=== PATIENT | female | born 1990 | race Hispanic/Latino ===

== ENCOUNTER 2017-09-14 22:10 | Emergency (ER) | payer OTHER ==
[2017-09-14 23:10] LABS: Urine Blood NEGATIVE (NEG); Urine Glucose NEGATIVE (NEG); Urine Specific Gravity >1.030 (1.005-1.030); Urine pH 5.5 (5.0-7.0)
[2017-09-14] MEDS ORDERED: DIPHENOX/ATROP SULF 1 TAB PO ONE (23:10)
[2017-09-14] MEDS ORDERED: NA CHLORIDE 0.9% 1,000 ML ONE (23:10)
[2017-09-14] MEDS ORDERED: ONDANSETRON 4 MG/2 ML VIAL ONE (23:10)
[2017-09-14 23:11] LABS: Urine Protein 1+ (NEG)
--- NOTE | 2017-09-14 23:39 | EDPHYS ---
Physician Documentation [facility] Name: Allison Marvin Age: 27 yrs Sex: Female : 1990 Arrival Date: 09/14/2017 Time: 22:15 Bed 28 Private MD: ED Physician Suleman Wolf HPI: 09/14 23:08 This 27 yrs old Female presents to ER via Ambulatory with complaints of rn Vomiting/Diarrhea. 23:08 The patient presents to the emergency department with nausea, vomiting, diarrhea. rn Onset: The symptoms/episode began/occurred 3 day(s) ago. Possible causes: unknown. The symptoms are aggravated by nothing. The symptoms are alleviated by nothing. Severity of symptoms: At their worst the symptoms were moderate in the emergency department the symptoms are unchanged. The patient has experienced a previous episode. The patient has not recently seen a physician. Pt reports 3 days of nausea/vomiting/diarrhea, with identical symptoms, no blood in stool, + mild abd cramping, has 2 month old at home also with mild diarrhea. . 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 - Home Meds: 23:01 None [Active]; [facility] - PMHx: 23:01 GERD; [facility] - PSHx: 23:01 None; [facility] - Immunization history:: Flu vaccine is up to date. - Social history:: Smoking status: Patient/guardian denies using tobacco. - Family history:: not pertinent. - Hospitalizations: : No recent hospitalization is reported. ROS: 23:08 Constitutional: Negative for fever, chills, and weight loss, Eyes: Negative for injury, rn pain, redness, and discharge, Cardiovascular: Negative for chest pain, palpitations, and edema, Respiratory: Negative for shortness of breath, cough, wheezing, and pleuritic chest pain, Abdomen/GI: Negative for abdominal pain, and constipation, Back: Negative for injury and pain, MS/Extremity: Negative for injury and deformity, Skin: Negative for injury, rash, and discoloration, Neuro: Negative for headache, weakness, numbness, tingling, and seizure. Exam: 23:08 Constitutional: This is a well developed, well nourished patient who is awake, alert, rn and in no acute distress. Head/Face: Normocephalic, atraumatic. Eyes: Pupils equal round and reactive to light, extra-ocular motions intact. Lids and lashes normal. Conjunctiva and sclera are non-icteric and not injected. Cornea within normal limits. Periorbital areas with no swelling, redness, or edema. Cardiovascular: Regular rate and rhythm with a normal S1 and S2. No gallops, murmurs, or rubs. Normal PMI, no JVD. No pulse deficits. Respiratory: Lungs have equal breath sounds bilaterally, clear to auscultation and percussion. No rales, rhonchi or wheezes noted. No increased work of breathing, no retractions or nasal flaring. Abdomen/GI: Soft, non-tender, with normal bowel sounds. No distension or tympany. No guarding or rebound. No evidence of tenderness throughout. MS/ Extremity: Pulses equal, no cyanosis. Neurovascular intact. Full, normal range of motion. Equal circumference. Neuro: Awake and alert, GCS 15, oriented to person, place, time, and situation. Cranial nerves II-XII grossly intact. Motor strength 5/5 in all extremities. Sensory grossly intact. Cerebellar exam normal. Normal gait. Vital Signs: 22:15 BP 97 / 63; Pulse 57; Resp 18; Temp 97.9(O); Pulse Ox 100% on R/A; Weight 63.5 kg; kb1 Height 5 ft. 4 in. (162.56 cm); Pain 9/10; 22:15 Body Mass Index 24.03 (63.50 kg, 162.56 cm) kb1 MDM: 22:19 Patient medically screened. rn 23:36 Differential diagnosis: Nonspecific abd pain, viral gastroenteritis, gastroenteritis, rn . Data reviewed: vital signs, nurses notes, lab test result(s), and as a result, I will discharge patient. Counseling: I had a detailed discussion with the patient and/or guardian regarding: the historical points, exam findings, and any diagnostic results supporting the discharge/admit diagnosis, lab results, the need for outpatient follow up, to return to the emergency department if symptoms worsen or persist or if there are any questions or concerns that arise at home. Special discussion: I discussed with the patient/guardian in detail that at this point there is no indication for admission to the hospital. It is understood, however, that if the symptoms persist or worsen the patient needs to return immediately for re-evaluation. Based on the history and exam findings, there is no indication for further emergent testing or inpatient evaluation. I discussed with the patient/guardian the need to see the OB Gyne specialist for further evaluation of the symptoms. ED course: Pt with atleast 2 months out of last , + UPT, + serum preg, with similar symptoms, maybe just viral gastroenteritis in addition to her being , urged her to f/u with her CLUB DIRECTOR.. 09/15 00:08 ED course: Pt very upset at time of discharge, yelling at both nurse and physician, has rn not thrown up entire time she has been here, when asked her goal she couldn't give me an answer, went on to yell and call me "dumb motherfucker", asked her politely to f/u with her OB and if vomiting persists her OB can write for nausea medication. No ketones in urine, normal vitals, no signs of severe dehydration requiring admission/observation/further medication. Pt not happy with her care and I am not entirely sure why, she stormed out. . 09/14 22:44 Order name: Quantitative Hcg; Complete Time: 23:36 rn 09/14 22:50 Order name: Urine Dipstick--Ancillary (enter results); Complete Time: 23:13 2 09/14 22:50 Order name: Urine --Ancillary (enter results); Complete Time: 23:13 [facility] 09/14 22:25 Order name: IV Start; Complete Time: 22:58 rn 09/14 22:25 Order name: Urine Dipstick-Ancillary (obtain specimen); Complete Time: 22:58 rn 09/14 22:25 Order name: Urine Test (obtain specimen); Complete Time: 22:58 rn Administered Medications: 09/14 22:44 CANCELLED (canceled): LoMOTIL 2 tabs PO once rn 22:59 Drug: Zofran 4 mg Route: IVP; Site: left antecubital; [facility] 09/15 00:08 Follow up: Response: Nausea is decreased [facility] 09/14 22:59 Drug: NS 0.9% 1000 ml Route: IV; Rate: 1000 ml; Site: left antecubital; kb1 09/15 00:08 Follow up: IV Status: Completed infusion kb1 Disposition: 09/14/17 23:38 Discharged to Home. Impression: Encounter for test, result positive, Vomiting, Diarrhea, unspecified. - Condition is Stable. - Discharge Instructions: Diarrhea, Medicines During , Nausea and Vomiting, First Trimester of . - Medication Reconciliation Form, Thank You Letter, Antibiotic Education, Prescription Opioid Use form. - Follow up: Private Physician; When: As needed; Reason: Recheck today's complaints, Re-evaluation by your physician. - Problem is new. - Symptoms have improved. Signatures: Dispatcher [employer] EDMS Suleman Wolf MD MD rn Brown, Kristina, RN RN kb1 Corrections: (The following items were deleted from the chart) 09/14 22:44 22:25 LoMOTIL 2 tabs PO once ordered. rn rn
--- NOTE | 2017-09-14 23:39 | ER ---
Nurse's Notes [facility] Name: Allison Marvin Age: 27 yrs Sex: Female : 1990 Arrival Date: 09/14/2017 Time: 22:15 Bed 28 Private MD: Diagnosis: Encounter for test, result positive;Vomiting;Diarrhea, unspecified Presentation: 09/14 22:15 Presenting complaint: Patient states: Complains of diarrhea and vomiting for the past kb1 three days. Transition of care: patient was not received from another setting of care. Onset of symptoms was September 11, 2017. Care prior to arrival: None. 22:15 Acuity: DWAINE 3 kb1 22:15 Method Of Arrival: Ambulatory [facility] Triage Assessment: 23:01 General: Appears in no apparent distress. Behavior is calm, cooperative. kb1 23:02 Pain: Complains of pain in epigastric area. Neuro: Level of Consciousness is awake, kb1 alert, obeys commands, Oriented to person, place, time, situation. Cardiovascular: Patient's skin is warm and dry. Respiratory: Airway is patent. GI: Abdomen is round Reports nausea, vomiting. : No signs and/or symptoms were reported regarding the genitourinary system. 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 - Social history:: Smoking status: Patient/guardian denies using tobacco. - Family history:: not pertinent. - Hospitalizations: : No recent hospitalization is reported. Screenin:10 Abuse screen: Denies threats or abuse. Nutritional screening: No deficits noted. [facility] Tuberculosis screening: No symptoms or risk factors identified. Fall Risk IV access (20 points). Assessment: 23:10 Reassessment: No changes from previously documented assessment. [facility] 09/15 00:00 Reassessment: Patient appears in no apparent distress at this time. Patient and/or kb1 family updated on plan of care and expected duration. Pain level reassessed. Patient is alert, oriented x 3, equal unlabored respirations, skin warm/dry/pink. Vital Signs: 09/14 22:15 BP 97 / 63; Pulse 57; Resp 18; Temp 97.9(O); Pulse Ox 100% on R/A; Weight 63.5 kg; kb1 Height 5 ft. 4 in. (162.56 cm); Pain 9/10; 22:15 Body Mass Index 24.03 (63.50 kg, 162.56 cm) kb1 ED Course: 22:15 Patient arrived in ED. am2 22:15 Arm band placed on. kb1 22:19 Suleman Wolf MD is Attending Physician. rn 22:32 Shweta Waddell RN is Primary Nurse. kb1 22:40 No provider procedures requiring assistance completed. Inserted saline lock: 22 gauge kb1 in left antecubital area, using aseptic technique. Blood collected. 23:00 Triage completed. kb1 23:10 Patient has correct armband on for positive identification. Placed in gown. Bed in low kb1 position. Call light in reach. Side rails up X 1. Pulse ox on. NIBP on. 09/15 00:08 IV discontinued, intact, bleeding controlled, No redness/swelling at site. Pressure kb1 dressing applied. Administered Medications: 09/14 22:44 CANCELLED (canceled): LoMOTIL 2 tabs PO once rn 22:59 Drug: Zofran 4 mg Route: IVP; Site: left antecubital; kb1 09/15 00:08 Follow up: Response: Nausea is decreased kb 09/14 22:59 Drug: NS 0.9% 1000 ml Route: IV; Rate: 1000 ml; Site: left antecubital; kb1 09/15 00:08 Follow up: IV Status: Completed infusion kb1 Outcome: 09/14 23:38 Discharge ordered by . rn 09/15 00:04 Discharged to home ambulatory. kb1 Condition: improved Discharge instructions given to patient, Instructed on discharge instructions, follow up and referral plans. Demonstrated understanding of instructions, follow-up care, Pt upset that she is not going home with prescriptions for nausea. Request to speak to Dr. Wolf. Dr. Wolf at bedside to speak with Pt, Pt became upset and began to cuss at and stormed out of room. 00:13 Patient left the ED. kb1 Signatures: Suleman Wolf MD MD rn Moreno, Amanda am2 Brown, Kristina, RN RN kb1 Corrections: (The following items were deleted from the chart) 09/14 23:04 23:01 General: Appears kb1 kb1 19:10 Presenting complaint: Patient states: Complains of diarrhea and vomiting for the kb1 past three days. kb1 19:10 Transition of care: patient was not received from another setting of care. [facility]1 19:10 Onset of symptoms was September 11, 2017 [facility] kb1 19:10 Care prior to arrival: None. [facility] kb1 19:10 Presenting complaint: Patient states: Complains of diarrhea and vomiting for the kb1 past three days. kb1 19:10 Method Of Arrival: Ambulatory [facility] kb1 19:10 Acuity: DWAINE 3 kb kb
[2017-09-15 00:41] VITALS: BP 97/63; TEMP 97.9; O2SAT 100
== END 2017-09-15 00:13 | disposition home or self-care (01) ==
LOC: ER 22:10
DX: R19.7 Diarrhea, unspecified (principal); Z32.01 Encounter for pregnancy test, result positive
CPT/HCPCS: 36415; 81003; 81025; 84702; 96361; 96374; 99284; J2405; J7030

== ENCOUNTER 2018-01-23 14:45 | Emergency (ER) | payer OTHER ==
--- OUTSIDE RECORDS SUMMARY | 2018-01-23 14:50 | XMS REPORT | Clinical Summary ---
:1990 Author Organization [facility] Address [address] [place] [address] Phone Care Team Providers Name Role Phone Unavailable Primary Care Provider Unavailable Allergies No Known Allergies Current Medications Prescription Sig. Disp. Refills Start Date End Date Status folic acid (FOLVITE) Take 1 mg by Active 1 MG tablet mouth daily. ondansetron Take 8 mg by Active (ZOFRAN-ODT) 4 MG mouth every 8 disintegrating (eight) hours tablet as needed for Nausea . metoclopramide Take 10 mg by Active (REGLAN) 5 MG tablet mouth every 6 (six) hours as needed . gabapentin Take 1 90 capsule 1 11/12/2017 Active (NEURONTIN) 300 MG capsule (300 9 capsule mg total) by mouth 3 (three) times daily. acetaminophen Take 2 30 tablet 0 11/12/2017 (TYLENOL) 500 MG tablets 8 tablet (1,000 mg total) by mouth every 8 (eight) hours for 10 days. ibuprofen Take 1 tablet 60 tablet 1 11/12/2017 (ADVIL,MOTRIN) 200 (200 mg 8 MG tablet total) by mouth every 6 (six) hours as needed for up to 10 days. traMADol (ULTRAM) 50 Take 2 30 tablet 0 11/12/2017 Discontinued mg tablet tablets (100 8 mg total) by mouth every 8 (eight) hours as needed for Pain for up to 10 days. Max Daily Amount: 300 mg acetaminophen-codein Take 1 tablet 30 tablet 0 11/12/2017 Discontinued e (TYLENOL #4) by mouth 8 300-60 mg per tablet every 4 (four) hours as needed for Pain for up to 10 days. Max Daily Amount: 6 tablets traMADol (ULTRAM) 50 Take 2 30 tablet 0 11/12/2017 mg tablet tablets (100 8 mg total) by mouth every 8 (eight) hours as needed for Pain for up to 10 days. Max Daily Amount: 300 mg acetaminophen-codein Take 1-2 60 tablet 0 11/12/2017 e (TYLENOL #4) tablets by 8 300-60 mg per tablet mouth every 4 (four) hours as needed for Pain for up to 10 days. Max Daily Amount: 12 tablets ondansetron (ZOFRAN) Take 1 tablet 15 tablet 0 12/09/2017 4 MG tablet (4 mg total) 8 by mouth every 6 (six) hours as needed for Nausea for up to 7 days. traMADol (ULTRAM) 50 Take 1 tablet 15 tablet 0 12/09/2017 mg tablet (50 mg total) 8 by mouth every 6 (six) hours as needed for Pain for up to 10 days. Max Daily Amount: 200 mg Active Problems Problem Noted Date Cholecystitis 11/07/2017 Encounters Date Type Specialty Care Team Description 12/09/2017 Emergency Emergency Medicine Richie Youssef, Hx laparoscopic MD cholecystectomy (Primary Dx);Flank pain;Non-intractable vomiting with nausea, unspecified vomiting type;Generalized abdominal pain 11/11/2017 Anesthesia Event Ceci Carreno MD 11/11/2017 Procedure Pass 11/11/2017 Surgery Adolph, LAPAROSCOPY,CHOLECYST MD Tawanda ECTOMY 11/10/2017 Procedure Pass Gastroenterology 11/10/2017 Surgery Gastroenterology Greta Vera ERCP,BALLOON SWEEPING MD Buddy 11/09/2017 Anesthesia Event Gastroenterology Nahid Thakur MD 11/08/2017 Orders Only General Internal Medicine 11/07/2017 [facility] General Internal Adolph, Cholecystitis - Encounter Medicine MD Tawanda (Primary Dx) 11/12/2017 after 01/22/2017 Social History Tobacco Use Types Packs/Day Years Used Date Never Smoker Smokeless Tobacco: Never Used Alcohol Use Drinks/Week oz/Week Comments No Sex Assigned at Date Recorded Not on file Last Filed Vital Signs Vital Sign Reading Time Taken Blood Pressure 107/58 12/09/2017 3:31 PM CDT Pulse 66 12/09/2017 3:31 PM CDT Temperature 36.9 C (98.4 F) 12/09/2017 3:31 PM CDT Respiratory Rate 18 12/09/2017 3:31 PM CDT Oxygen Saturation 100% 12/09/2017 3:31 PM CDT Inhaled Oxygen Concentration - - Weight 59 kg (130 lb) 12/09/2017 3:31 PM CDT Height 162.6 cm (5' 4") 12/09/2017 3:31 PM CDT Body Mass Index 22.31 12/09/2017 3:31 PM CDT Plan of Treatment Not on file Implants Implanted Type Area Harness Brusher Device Expiration Date Model / Identifier Serial / Lot Stent Bili Duodenal [id number] - [id number] Stents-Pe [employer] 2018 [id number] / Implanted: Qty: 1 on 11/10/2017 by Greta Vera MD [facility] / [id number] Procedures Procedure Name Priority Date/Time Associated Diagnosis Comments LAPAROSCOPY,CHOLECYSTEC 11/11/2017 3:05 PM CDT Acute cholecystitis ANDREA PROCEDURE W/ C-ARM 11/10/2017 7:15 AM CDT Choledocholithiasis Special Needs C-arm ERCP,BALLOON SWEEPING 11/10/2017 7:15 AM CDT Choledocholithiasis Special Needs C-arm after 01/22/[address] abdomen pelvis with IV contrast (12/09/2017 6:17 PM) Specimen Performing Laboratory [employer] Narrative FINAL REPORT History: Generalized abdominal pain. TECHNIQUE: Helical CT of the abdomen and pelvis were performed following the uneventful administration of intravenous contrast utilizing multiple windows, sagittal and coronal reformations. FINDINGS: No comparisons. Abdominal CT: The solid abdominal organs including the liver, spleen, kidneys, pancreas and adrenal glands are unremarkable. What appears to be a plastic biliary stent is present in the common bile duct extending superiorly into the hepatic hilum. A small amount of pneumobilia is present. Gallbladder is absent, consistent with prior cholecystectomy and there are multiple surgical clips in the gallbladder fossa. Stomach, visible portions of the small bowel and colon are normal. There is no evidence for obstruction. No free air or evidence for perforation. No abdominal fluid collections or pathologic adenopathy. Vessels and bones are unremarkable. Images obtained through the lower chest and lung bases are unremarkable. Pelvic CT: Pelvic organs including the rectum, uterus, urinary bladder and visible portions of the bowel are unremarkable. There are no pelvic fluid collections or pathologic adenopathy. Vessels and bones are unremarkable. Several pelvic phleboliths are noted. IMPRESSION: 1. Common bile duct endoscopic stent and mild pneumobilia. Gallbladder is absent consistent with cholecystectomy. 2. Otherwise, unremarkable CT of the abdomen and pelvis. Signed: Cassie Staples MD Report Verified Date/Time:12/09/2017 18:39:14 Reading Location: [facility] Diagnostic Imaging Reading Room - [place] [address] Procedure Note Interface, External Ris In - 12/09/2017 6:41 PM CDT FINAL REPORT History: Generalized abdominal pain. TECHNIQUE: Helical CT of the abdomen and pelvis were performed following the uneventful administration of intravenous contrast utilizing multiple windows, sagittal and coronal reformations. FINDINGS: No comparisons. Abdominal CT: The solid abdominal organs including the liver, spleen, kidneys, pancreas and adrenal glands are unremarkable. What appears to be a plastic biliary stent is present in the common bile duct extending superiorly into the hepatic hilum. A small amount of pneumobilia is present. Gallbladder is absent, consistent with prior cholecystectomy and there are multiple surgical clips in the gallbladder fossa. Stomach, visible portions of the small bowel and colon are normal. There is no evidence for obstruction. No free air or evidence for perforation. No abdominal fluid collections or pathologic adenopathy. Vessels and bones are unremarkable. Images obtained through the lower chest and lung bases are unremarkable. Pelvic CT: Pelvic organs including the rectum, uterus, urinary bladder and visible portions of the bowel are unremarkable. There are no pelvic fluid collections or pathologic adenopathy. Vessels and bones are unremarkable. Several pelvic phleboliths are noted. IMPRESSION: 1. Common bile duct endoscopic stent and mild pneumobilia. Gallbladder is absent consistent with cholecystectomy. 2. Otherwise, unremarkable CT of the abdomen and pelvis. Signed: Cassie Staples MD Report Verified Date/Time: 12/09/2017 18:39:14 Reading Location: [facility] Diagnostic Imaging Reading Room - [place] [address] /aPTT (12/09/2017 4:15 PM) Component Value Ref Range Protime 15.6 (H) 11.7 - 14.7 seconds INR 1.2 <=5.9 PTT 29.2 22.5 - 36.0 seconds Specimen Performing Laboratory Blood - Arm, Right [address] [address] Narrative RECOMMENDED COUMADIN/WARFARIN INR THERAPY RANGES STANDARD DOSE: 2.0 - 3.0 Includes: PROPHYLAXIS for venous thrombosis, systemic embolization; TREATMENT for venous thrombosis and/or pulmonary embolus. HIGH RISK: Target INR is 2.5-3.5 for patients with mechanical heart valves. CBC with platelet count + automated diff (12/09/2017 4:15 PM)Only the most recent of2 resultswithin the time period is included. Component Value Ref Range WBC 7.5 3.5 - 10.5 K/L RBC 3.97 3.93 - 5.22 M/L Hemoglobin 9.6 (L) 11.2 - 15.7 GM/DL Hematocrit 30.9 (L) 34.1 - 44.9 % MCV 77.8 (L) 79.4 - 94.8 fL MCH 24.2 (L) 25.6 - 32.2 pg MCHC 31.1 (L) 32.2 - 35.5 GM/DL RDW 19.2 (H) 11.7 - 14.4 % Platelets 201 150 - 450 K/CU MM MPV 10.5 9.4 - 12.3 fL nRBC 0 0 - 0 /100 WBC % Neutros 64 % % Lymphs 27 % % Monos 6 % % Eos 2 % % Baso 1 % # Neutros 4.81 1.56 - 6.13 K/L # Lymphs 2.04 1.18 - 3.74 K/L # Monos 0.43 (H) 0.24 - 0.36 K/L # Eos 0.14 0.04 - 0.36 K/L # Baso 0.06 0.01 - 0.08 K/L Immature Granulocytes-Relative 0 0 - 1 % Specimen Performing Laboratory Blood - Arm, Right [address] [address] Screen, urine (12/09/2017 4:15 PM)Only the most recent of2 resultswithin the time period is included. Component Value Ref Range Preg Test, Ur Negative Specimen Performing Laboratory Urine [address] [address] Urinalysis w/Microscopic (12/09/2017 4:15 PM) Component Value Ref Range Color, UA Yellow Clarity, UA Hazy Specific [place], UA 1.031 1.001 - 1.035 pH, UA 6.0 5.0 - 8.0 Protein, UA 30 mg/dL (A) Negative Glucose, UA Negative Negative Ketones, UA Negative Negative Bilirubin, UA Negative Negative Blood, UA Small (A) Negative Nitrite, UA Negative Negative Leukocytes, UA Moderate (A) Negative Urobilinogen, UA 2.0 (H) 0.2 - 1.0 mg/dL RBC, UA 0 /HPF WBC, UA 5 /HPF Mucus Many Squam Epithel, UA 6 /HPF Hyaline Casts, UA 6 /LPF Specimen Source Specimen Performing Laboratory Urine [address] [address] CBC with platelet count + automated diff (12/09/2017 4:15 PM)Only the most recent of2 resultswithin the time period is included. Specimen Performing Laboratory Blood Narrative The following orders were created for panel order CBC with platelet count + automated diff. Procedure Abnormality Status --------- ------ CBC with platelet count ...[[id number]]AbnormalFinal result Please view results for these tests on the individual orders. Lipase (12/09/2017 4:15 PM)Only the most recent of2 resultswithin the time period is included. Component Value Ref Range Lipase 9 8 - 78 U/L Specimen Performing Laboratory Blood - Arm, Right [address] [address] Comprehensive metabolic panel (12/09/2017 4:15 PM) Component Value Ref Range Protein, Total 7.2 6.0 - 8.3 gm/dL Albumin 4.1 3.5 - 5.0 g/dL Alkaline Phosphatase 77 40 - 150 U/L Total Bilirubin 0.5 0.2 - 1.2 mg/dL Sodium 139 136 - 145 meq/L Potassium 3.0 (L) 3.5 - 5.1 meq/L Chloride 107 98 - 107 meq/L CO2 26 22 - 29 meq/L BUN 15 7 - 21 mg/dL Creatinine 0.67 0.57 - 1.25 mg/dL Glucose 86 70 - 105 mg/dL Calcium 9.1 8.4 - 10.2 mg/dL AST 11 5 - 34 U/L ALT 7 6 - 55 U/L EGFR Comment: INSUFFICIENT CLINICAL DATA TO mL/min/1.73 sq m CALCULATE ESTIMATED GFR. Specimen Performing Laboratory Blood - Arm, Right [address] [address] RHYTHM STRIP - SCAN (11/15/2017 7:20 AM)Tissue Exam (11/11/2017 6:06 PM) Component Value Ref Range Case Report Surgical Pathology Report Case: [id number] Authorizing Provider:Tawanda Farfan MDCollected: 11/11/2017 1806 Ordering Location: [facility] PERI[facility] Received: 11/14/2017 0743 SERVICES Pathologist: Mabel Mejia MD Specimen:Gallbladder, Gallbladder and Lymph Node DIAGNOSIS GALLBLADDER,LAPAROSCOPIC CHOLECYSTECTOMY: - ACUTE SEROSITIS AND PERICHOLECYSTITIS - PREDOMINANTLT CHRONIC CHOLECYSTITIS IN SECTIONS EXAMINED - CHOLELITHIASIS - CYSTIC DUCT MARGIN, UNREMARKABLE - BENIGN CYSTIC LYMPH NODE - NO DYSPLASIA OR MALIGNANCY SEEN Signing Pathologist Direct Phone Line: [phone] CPT Code(s) 87786 CLINICAL HISTORY Acute cholecystitis SPECIMEN SOURCE Gallbladder and lymph node GROSS DESCRIPTION The specimen is received in formalin-filled container labeled with the patient's information and labeled "gallbladder". It consists of an intact gallbladder measuring 7.6 x 2.5 cm with a gallbladder wal l thickness up to 0.2 cm. There is a separate omer-quinn lymph node measuring 1 x 0.7 x 0.4 cm. The gallbladder lumen is filled with multiple omer smooth stones and green thick fluid. The mucosa is green a nd smooth with multiple areas of effacement. No masses are identified. The stones measure up to 0.6 cm. Section code: A1, margin en face with lymph node; A2, gallbladder wall. CG/ ew MICROSCOPIC DESCRIPTION PERFORMED Specimen Performing Laboratory Tissue - Gallbladder [address] [address] aPTT (11/11/2017 6:40 AM)Only the most recent of2 resultswithin the time period is included. Component Value Ref Range PTT 33.3 22.5 - 36.0 seconds Specimen Performing Laboratory Blood [address] [address] Prothrombin time/INR (11/11/2017 6:40 AM)Only the most recent of2 resultswithin the time period is included. Component Value Ref Range Protime 16.7 (H) 11.7 - 14.7 seconds INR 1.4 <=5.9 Specimen Performing Laboratory Blood [address] [address] Narrative RECOMMENDED COUMADIN/WARFARIN INR THERAPY RANGES STANDARD DOSE: 2.0 - 3.0 Includes: PROPHYLAXIS for venous thrombosis, systemic embolization; TREATMENT for venous thrombosis and/or pulmonary embolus. HIGH RISK: Target INR is 2.5-3.5 for patients with mechanical heart valves. CBC (Hemogram only) (11/11/2017 6:40 AM)Only the most recent of2 resultswithin the time period is included. Component Value Ref Range WBC 4.8 3.5 - 10.5 K/L RBC 3.72 (L) 3.93 - 5.22 M/L Hemoglobin 9.0 (L) 11.2 - 15.7 GM/DL Hematocrit 28.3 (L) 34.1 - 44.9 % MCV 76.1 (L) 79.4 - 94.8 fL MCH 24.2 (L) 25.6 - 32.2 pg MCHC 31.8 (L) 32.2 - 35.5 GM/DL RDW 18.8 (H) 11.7 - 14.4 % Platelets 212 150 - 450 K/CU MM MPV 10.4 9.4 - 12.3 fL nRBC 0 0 - 0 /100 WBC Specimen Performing Laboratory Blood [address] [address] Basic Metabolic Panel (11/11/2017 6:40 AM)Only the most recent of3 resultswithin the time period is included. Component Value Ref Range Sodium 140 136 - 145 meq/L Potassium 3.3 (L)Comment: Specimen slightly hemolyzed 3.5 - 5.1 meq/L Chloride 108 (H) 98 - 107 meq/L CO2 22 22 - 29 meq/L BUN 2 (L) 7 - 21 mg/dL Creatinine 0.58Comment: Specimen slightly hemolyzed 0.57 - 1.25 mg/dL Glucose 69 (L) 70 - 105 mg/dL Calcium 8.4 8.4 - 10.2 mg/dL EGFR Comment: INSUFFICIENT CLINICAL DATA TO CALCULATE mL/min/1.73 sq m ESTIMATED GFR. Specimen Performing Laboratory Blood [address] [address] TRANSFUSION SERVICE REPORT - SCAN (11/10/2017 6:10 PM)FL ERCP (11/10/2017 8: 20 AM) Specimen Performing Laboratory GE [facility] Narrative FINAL REPORT Two fluoroscopic abdomen images during ERCP. Fluoroscopy time 178.5 seconds. Fluoroscopy was not performed by the undersigned. Refer to procedure notes for diagnostic and therapeutic detail. Signed: Cassie Singh MD Report Verified Date/Time:11/10/2017 08:59:33 Reading Location: [facility] Radiology Reading Room Procedure Note Interface, External Ris In - 11/10/2017 9:01 AM CDT FINAL REPORT Two fluoroscopic abdomen images during ERCP. Fluoroscopy time 178.5 seconds. Fluoroscopy was not performed by the undersigned. Refer to procedure notes for diagnostic and therapeutic detail. Signed: Cassie Singh MD Report Verified Date/Time: 11/10/2017 08:59:33 Reading Location: [facility] Radiology Reading Room RT OF PROCEDURE - ENDOSCOPY URL (11/10/2017 8:03 AM)Type and screen, automated (11/09/2017 4:23 AM) Component Value Ref Range ABO/RH AUTOMATED (BEAKER) A POSITIVE Ab Scrn NEGATIVE Specimen Performing Laboratory Blood [place] [id number] ECG 12 lead (11/08/2017 6:51 PM)Only the most recent of2 resultswithin the time period is included. Specimen Performing Laboratory [facility] Narrative Ventricular Rate 60 BPM Atrial Rate 60 BPM P-R Interval 112 ms QRS Duration 88 ms Q-T Interval 414 ms QTC Calculation(Bazett) 414 ms P [place] 16 degrees R [place] 58 degrees T [place] 42 degrees Normal sinus rhythm with sinus arrhythmia Normal ECG When compared with ECG of 08-NOV-2017 04:03, No significant change was found Confirmed by Tressa LIANG MICHAEL ([id number]) on 11/09/2017 7:46:53 AM Procedure Note Interface, External Ris In - 11/09/2017 7:47 AM CDT Ventricular Rate 60 BPM Atrial Rate 60 BPM P-R Interval 112 ms QRS Duration 88 ms Q-T Interval 414 ms QTC Calculation(Bazett) 414 ms P [place] 16 degrees R [place] 58 degrees T [place] 42 degrees Normal sinus rhythm with sinus arrhythmia Normal ECG When compared with ECG of 08-NOV-2017 04:03, No significant change was found Confirmed by Tressa LIANG MICHAEL ([id number]) on 11/09/2017 7:46:53 AM MR abdomen without IV contrast MRCP (11/08/2017 3:58 PM) Specimen Performing Laboratory [employer] Narrative FINAL REPORT MRCP, MRI of abdomen without contrast Clinical History: Cholelithiasis Technique: Multiplanar and multisequence MR images of the biliary system are obtained, with dedicated MRCP protocol and images. No intravenous contrast is administered. In addition, 3 dimensional reformatted images of the biliary system are obtained to evaluate the biliary anatomy. Comparison: None. Discussion: This examination is not dedicated to evaluating masses or parenchymal abnormalities of the abdominal organs. There is a 5 mm stone in the upper common bile duct, just inferior to the origin of the cystic duct. There is associated moderate common hepatic ductal dilation, measuring up to 9 mm. There is mild intrahepatic biliary ductal dilation. Numerous stones are seen within the gallbladder. There is mild pericholecystic fluid and wall thickening. A surgically placed drainage catheter is seen in the right abdomen, terminating in Morison's pouch. No drainable intra-abdominal fluid collection is evident. There is minimal subcutaneous edema in the anterior abdomen, possibly related to recent surgery. No drainable fluid collection. No pancreatic ductal dilation. No definite solid pancreatic lesion. The liver and spleen are grossly unremarkable for noncontrast examination. No hydronephrosis or proximal hydroureter. The bilateral adrenal glands are within normal limits. No upper abdominal lymphadenopathy. Visualized portions of the bowel are unremarkable. Impression: A 5 mm stone is seen in the upper common bile duct, just below the takeoff of the cystic duct. There is associated intrahepatic and extrahepatic biliary ductal dilation. Findings of acute cholecystitis with mild pericholecystic fluid and wall thickening. Numerous stones are seen in the gallbladder lumen. Signed: Edwardo Alcantara MD Report Verified Date/Time:11/08/2017 16:43:17 Reading Location: [address] Body Reading Room Procedure Note Interface, External Ris In - 11/08/2017 4:45 PM CDT FINAL REPORT MRCP, MRI of abdomen without contrast Clinical History: Cholelithiasis Technique: Multiplanar and multisequence MR images of the biliary system are obtained, with dedicated MRCP protocol and images. No intravenous contrast is administered. In addition, 3 dimensional reformatted images of the biliary system are obtained to evaluate the biliary anatomy. Comparison: None. Discussion: This examination is not dedicated to evaluating masses or parenchymal abnormalities of the abdominal organs. There is a 5 mm stone in the upper common bile duct, just inferior to the origin of the cystic duct. There is associated moderate common hepatic ductal dilation, measuring up to 9 mm. There is mild intrahepatic biliary ductal dilation. Numerous stones are seen within the gallbladder. There is mild pericholecystic fluid and wall thickening. A surgically placed drainage catheter is seen in the right abdomen, terminating in Morison's pouch. No drainable intra-abdominal fluid collection is evident. There is minimal subcutaneous edema in the anterior abdomen, possibly related to recent surgery. No drainable fluid collection. No pancreatic ductal dilation. No definite solid pancreatic lesion. The liver and spleen are grossly unremarkable for noncontrast examination. No hydronephrosis or proximal hydroureter. The bilateral adrenal glands are within normal limits. No upper abdominal lymphadenopathy. Visualized portions of the bowel are unremarkable. Impression: A 5 mm stone is seen in the upper common bile duct, just below the takeoff of the cystic duct. There is associated intrahepatic and extrahepatic biliary ductal dilation. Findings of acute cholecystitis with mild pericholecystic fluid and wall thickening. Numerous stones are seen in the gallbladder lumen. Signed: Edwardo Alcantara MD Report Verified Date/Time: 11/08/2017 16:43:17 Reading Location: [address] Body Reading Room Hepatic function panel (11/08/2017 8:53 AM) Component Value Ref Range Protein, Total 6.9 6.0 - 8.3 gm/dL Albumin 4.0 3.5 - 5.0 g/dL Total Bilirubin 0.5 0.2 - 1.2 mg/dL Bilirubin, Direct 0.3 0.1 - 0.5 mg/dL Alkaline Phosphatase 74 40 - 150 U/L AST 18 5 - 34 U/L ALT 20 6 - 55 U/L Specimen Performing Laboratory Blood - Arm, [address] [address] Lactic acid, venous, whole blood (11/07/2017 11:03 PM) Component Value Ref Range Lactate, Venous 1.0 0.5 - 2.2 mmol/L Specimen Performing Laboratory Blood - Arm, [address] [address] Narrative Effective 10/15/2015: Units/Reference Range Change New: 0.5-2.2 mmol/LPrevious: 5-20 mg/dL hCG, quantitative, (11/07/2017 11:03 PM) Component Value Ref Range hCG Quant 34 (H) 0 - 10 mIU/mL Specimen Performing Laboratory Blood - Arm, [address] [address] Narrative Non- Females: <10 mIU/mL Females: Gestation AgeReference Range(mIU/mL) 0.2-1 Week5-50 1-2 [id number] 2-3 Weeks 100-5,000 3-4 Weeks 500-10,000 4-5 Weeks 1,000-50,000 5-6 Weeks10,000-100,000 6-8 Weeks15,000-200,000 2-3 Months 10,000-100,000 Manual Differential (11/07/2017 7:40 PM) Component Value Ref Range % Neutros 92 % % Lymphs 3 % % Bands 5 0 - 10 % # Neutros 11.68 (H) 1.56 - 6.13 K/ul # Lymphs 0.38 (L) 1.18 - 3.74 K/ul # Bands 0.64 0.00 - 0.80 K/uL Total Counted 100 WBC Morphology Normal Large Platelet Present Polychromasia 1+ few Hypochromia 1+ few Anisocytosis 1+ few Microcytes 1+ few Ovalocytes 1+ few Platelet Conc Adequate Specimen Performing Laboratory Blood [address] [address] Narrative Received comment: User comments: Slide comments: Phosphorus (11/07/2017 7:40 PM) Component Value Ref Range Phosphorus 2.7 2.3 - 4.7 mg/dL Specimen Performing Laboratory Blood [address] [address] Magnesium (11/07/2017 7:40 PM) Component Value Ref Range Magnesium 2.0 1.6 - 2.6 mg/dL Specimen Performing Laboratory Blood [address] [address] Amylase (11/07/2017 7:40 PM) Component Value Ref Range Amylase 27 25 - 125 U/L Specimen Performing Laboratory Blood [address] [address] after 01/22/2017
--- OUTSIDE RECORDS SUMMARY | 2018-01-23 14:51 | XMS REPORT ---
:1990 [facility] Address [address] [place] [address] Care Team Providers Name Role Phone ELIS MIRANDA Unavailable Unavailable TAWANDA FARFAN Unavailable Unavailable Problems This patient has no known problems. Allergies, Adverse Reactions, Alerts This patient has no known allergies or adverse reactions. Medications This patient has no known medications. Results Test Description Test Time Test Comments Text Results Atomic Results Result Comments CT, ABDOMEN 2017-12-09 Reason for exam:->ABDOMINAL FINAL REPORT PATIENT 18:39:00 PAINIs the History: ?->UnknownWhat is the Generalized abdominal patient's sedation pain. TECHNIQUE: requirement?->No Sedation Helical CT of the abdomen and pelvis [...] CT of the abdomen and pelvis. Signed: Staples, Cassie MDReport Verified Date/Time: 12/09/2017 18:39:14 Reading Location: [facility] Diagnostic Imaging Reading Room - [place] [address] [id number] REHENSIVE METABOLIC PANEL 2017-12-09 16:59:00 Test Item Value Reference Range Comments TOTAL PROTEIN (BEAKER) (test 7.2 gm/dL 6.0-8.3 oqjf=892) ALBUMIN (BEAKER) (test 4.1 g/dL 3.5-5.0 lyum=6254) ALKALINE PHOSPHATASE 77 U/L 40-150 (BEAKER) (test cymd=354) BILIRUBIN TOTAL (BEAKER) 0.5 mg/dL 0.2-1.2 (test otqd=798) SODIUM (BEAKER) (test 139 meq/L 136-145 nzli=626) POTASSIUM (BEAKER) (test 3.0 meq/L 3.5-5.1 lxpp=172) CHLORIDE (BEAKER) (test 107 meq/L 98-107 hkdt=477) CO2 (BEAKER) (test bkcl=586) 26 meq/L 22-29 BLOOD UREA NITROGEN (BEAKER) 15 mg/dL 7-21 (test phjt=697) CREATININE (BEAKER) (test 0.67 mg/dL 0.57-1.25 hzgl=959) GLUCOSE RANDOM (BEAKER) 86 mg/dL 70-105 (test vqeh=180) CALCIUM (BEAKER) (test 9.1 mg/dL 8.4-10.2 yxqr=637) AST (SGOT) (BEAKER) (test 11 U/L 5-34 azbw=591) ALT (SGPT) (BEAKER) (test 7 U/L 6-55 obme=707) EGFR (BEAKER) (test mL/min/1.73 sq m INSUFFICIENT CLINICAL DATA TO skfy=1347) CALCULATE ESTIMATED GFR. SCREEN, [id number] 16:57:00 Test Item Value Reference Range Comments TEST URINE (BEAKER) (test ucim=326) Negative URINALYSIS W/ [id number] 16:52:00 Test Item Value Reference Range Comments COLOR (BEAKER) (test dcqq=496) Yellow CLARITY (BEAKER) (test vnse=594) Hazy SPECIFIC GRAVITY UA (BEAKER) (test dpsv=114) 1.031 1.001-1.035 PH UA (BEAKER) (test trid=689) 6.0 5.0-8.0 PROTEIN UA (BEAKER) (test ndki=529) 30 mg/dL Negative GLUCOSE UA (BEAKER) (test fjvx=924) Negative Negative KETONES UA (BEAKER) (test vrft=578) Negative Negative BILIRUBIN UA (BEAKER) (test amtu=081) Negative Negative BLOOD UA (BEAKER) (test vyho=780) Small Negative NITRITE UA (BEAKER) (test dshk=134) Negative Negative LEUKOCYTE ESTERASE UA (BEAKER) (test jlds=893) Moderate Negative UROBILINOGEN UA (BEAKER) (test iyft=193) 2.0 mg/dL 0.2-1.0 RBC UA (BEAKER) (test txmw=656) 0 /HPF WBC UA (BEAKER) (test abtf=287) 5 /HPF MUCUS (BEAKER) (test enaz=4289) Many SQUAMOUS EPITHELIAL (BEAKER) (test gqha=348) 6 /HPF HYALINE CASTS (BEAKER) (test hrsa=679) 6 /LPF SOURCE(BEAKER) (test olur=9946) [id number] 16:48:00 Test Item Value Reference Range Comments LIPASE (BEAKER) (test ajif=891) 9 U/L 8-78 [id number] 16:32:00 Test Item Value Reference Range Comments PROTIME (BEAKER) (test fkui=024) 15.6 seconds 11.7-14.7 INR (BEAKER) (test ffef=642) 1.2 <=5.9 PARTIAL THROMBOPLASTIN TIME (BEAKER) (test 29.2 seconds 22.5-36.0 ptai=516) RECOMMENDED COUMADIN/WARFARIN INR THERAPY RANGESSTANDARD DOSE: 2.0 - 3.0 Includes: PROPHYLAXIS forvenous thrombosis, systemic embolization; TREATMENT for venous thrombosis and/or pulmonary embolus.HIGH RISK: Target INR is 2.5-3.5 for patients with mechanical heart valves.CBC W/PLT COUNT & AUTO [id number] 16:23:00 Test Item Value Reference Range Comments WHITE BLOOD CELL COUNT (BEAKER) (test kmli=216) 7.5 K/ L 3.5-10.5 RED BLOOD CELL COUNT (BEAKER) (test vibc=937) 3.97 M/ L 3.93-5.22 HEMOGLOBIN (BEAKER) (test tfoj=744) 9.6 GM/DL 11.2-15.7 HEMATOCRIT (BEAKER) (test igys=890) 30.9 % 34.1-44.9 MEAN CORPUSCULAR VOLUME (BEAKER) (test wnxf=033) 77.8 fL 79.4-94.8 MEAN CORPUSCULAR HEMOGLOBIN (BEAKER) (test 24.2 pg 25.6-32.2 ydbd=474) MEAN CORPUSCULAR HEMOGLOBIN CONC (BEAKER) (test 31.1 GM/DL 32.2-35.5 ikpi=989) RED CELL DISTRIBUTION WIDTH (BEAKER) (test 19.2 % 11.7-14.4 dlnb=156) PLATELET COUNT (BEAKER) (test gmnc=679) 201 K/CU MM 150-450 MEAN PLATELET VOLUME (BEAKER) (test evfn=864) 10.5 fL 9.4-12.3 NUCLEATED RED BLOOD CELLS (BEAKER) (test 0 /100 WBC 0-0 ewjq=931) NEUTROPHILS RELATIVE PERCENT (BEAKER) (test 64 % pgkw=402) LYMPHOCYTES RELATIVE PERCENT (BEAKER) (test 27 % puxa=594) MONOCYTES RELATIVE PERCENT (BEAKER) (test 6 % ltzv=306) EOSINOPHILS RELATIVE PERCENT (BEAKER) (test 2 % umii=869) BASOPHILS RELATIVE PERCENT (BEAKER) (test 1 % nmzn=470) NEUTROPHILS ABSOLUTE COUNT (BEAKER) (test 4.81 K/ L 1.56-6.13 oqut=525) LYMPHOCYTES ABSOLUTE COUNT (BEAKER) (test 2.04 K/ L 1.18-3.74 ephl=173) MONOCYTES ABSOLUTE COUNT (BEAKER) (test 0.43 K/ L 0.24-0.36 blxa=655) EOSINOPHILS ABSOLUTE COUNT (BEAKER) (test 0.14 K/ L 0.04-0.36 uepq=969) BASOPHILS ABSOLUTE COUNT (BEAKER) (test 0.06 K/ L 0.01-0.08 ngik=720) IMMATURE GRANULOCYTES-RELATIVE PERCENT (BEAKER) 0 % 0-1 (test nbfg=9143) TISSUE [id number] 10:42:00Surgical Pathology Report Case: [id number] Authorizing Provider: Tawanda Farfan MD Collected: 11/11/2017 1806 Ordering Location: [facility] Received: 11/14/2017 0743 SERVICES Pathologist: Mabel Mejia MD Specimen: Gallbladder, Gallbladder and Lymph Node GALLBLADDER,LAPAROSCOPIC CHOLECYSTECTOMY: - ACUTE SEROSITIS AND PERICHOLECYSTITIS - PREDOMINANTLT CHRONIC CHOLECYSTITISIN SECTIONS EXAMINED - CHOLELITHIASIS - CYSTIC DUCT MARGIN, UNREMARKABLE - BENIGN CYSTIC LYMPH NODE - NO DYSPLASIA OR MALIGNANCY SEEN Signing Pathologist Direct Phone Line: [phone] signed by Mabel Mejia MD on 11/15/2017 at 10:42 [id number] cholecystitis Gallbladder and lymph node The specimen is received in formalin-filled container labeled with the patient's information and labeled "gallbladder". It consists of an intact gallbladder measuring 7.6 x 2.5 cm with a gallbladder wall thickness up to 0.2 cm. There is a separate omer- quinn lymph node measuring 1 x0.7 x 0.4 cm. The gallbladder lumen is filled with multiple omer smooth stones and green thick fluid.The mucosa is green and smooth with multiple areas of effacement. No masses are identified. The stones measure up to 0.6 cm.Section code: A1, margin en face with lymph node; A2, gallbladder wall. CG/ewPERFORMEDBASIC METABOLIC [id number] 07:18:00 Test Item Value Reference Range Comments SODIUM (BEAKER) (test 140 meq/L 136-145 xoyg=983) POTASSIUM (BEAKER) (test 3.3 meq/L 3.5-5.1 Specimen slightly ackk=980) hemolyzed CHLORIDE (BEAKER) (test 108 meq/L 98-107 zyli=299) CO2 (BEAKER) (test 22 meq/L 22-29 jubp=048) BLOOD UREA NITROGEN 2 mg/dL 7-21 (BEAKER) (test grhr=432) CREATININE (BEAKER) (test 0.58 mg/dL 0.57-1.25 Specimen slightly rgna=864) hemolyzed GLUCOSE RANDOM (BEAKER) 69 mg/dL 70-105 (test mtbo=672) CALCIUM (BEAKER) (test 8.4 mg/dL 8.4-10.2 sdtc=666) EGFR (BEAKER) (test mL/min/1.73 sq m INSUFFICIENT CLINICAL DATA xfii=2877) TO CALCULATE ESTIMATED GFR. [id number] 07:17:00 Test Item Value Reference Range Comments PARTIAL THROMBOPLASTIN TIME (BEAKER) (test 33.3 seconds 22.5-36.0 dbzv=524) PROTHROMBIN TIME/[id number] 07:16:00 Test Item Value Reference Range Comments PROTIME (BEAKER) (test trfa=763) 16.7 seconds 11.7-14.7 INR (BEAKER) (test wbab=865) 1.4 <=5.9 RECOMMENDED COUMADIN/WARFARIN INR THERAPY RANGESSTANDARD DOSE: 2.0 - 3.0 Includes: PROPHYLAXIS forvenous thrombosis, systemic embolization; TREATMENT for venous thrombosis and/or pulmonary embolus.HIGH RISK: Target INR is 2.5-3.5 for patients with mechanical heart valves.CBC (HEMOGRAM ONLY)2017-11-11 07:11:00 Test Item Value Reference Range Comments WHITE BLOOD CELL COUNT (BEAKER) (test jwep=990) 4.8 K/ L 3.5-10.5 RED BLOOD CELL COUNT (BEAKER) (test nant=973) 3.72 M/ L 3.93-5.22 HEMOGLOBIN (BEAKER) (test xara=496) 9.0 GM/DL 11.2-15.7 HEMATOCRIT (BEAKER) (test hzwa=498) 28.3 % 34.1-44.9 MEAN CORPUSCULAR VOLUME (BEAKER) (test upiu=715) 76.1 fL 79.4-94.8 MEAN CORPUSCULAR HEMOGLOBIN (BEAKER) (test 24.2 pg 25.6-32.2 qcmt=877) MEAN CORPUSCULAR HEMOGLOBIN CONC (BEAKER) (test 31.8 GM/DL 32.2-35.5 yhub=435) RED CELL DISTRIBUTION WIDTH (BEAKER) (test 18.8 % 11.7-14.4 phry=045) PLATELET COUNT (BEAKER) (test rrfa=331) 212 K/CU MM 150-450 MEAN PLATELET VOLUME (BEAKER) (test gyie=354) 10.4 fL 9.4-12.3 NUCLEATED RED BLOOD CELLS (BEAKER) (test 0 /100 WBC 0-0 nagg=199) FL, [id number] 08:59:00Reason for exam:->CBD stonesFINAL REPORT Two fluoroscopic abdomen images during ERCP. Fluoroscopy time 178.5 seconds. Fluoroscopy was not performed by the undersigned. Refer to procedure notes for diagnostic and therapeutic detail. Signed: Cassie Villa Verified Date/Time: 11/10/2017 08:59:33 Reading Location: [facility] Radiology Reading Room Electronically signed by: CASSIE VILLA M.D.on 11/10/2017 08:59 AMPREGNANCY SCREEN, [id number] 16:06:00 Test Item Value Reference Range Comments TEST URINE (BEAKER) (test pjuk=043) Negative BASIC METABOLIC [id number] 05:31:00 Test Item Value Reference Range Comments SODIUM (BEAKER) (test 141 meq/L 136-145 uemd=764) POTASSIUM (BEAKER) (test 3.2 meq/L 3.5-5.1 zwjp=604) CHLORIDE (BEAKER) (test 110 meq/L 98-107 udcc=802) CO2 (BEAKER) (test 19 meq/L 22-29 wzlo=030) BLOOD UREA NITROGEN 2 mg/dL 7-21 (BEAKER) (test wirz=509) CREATININE (BEAKER) (test 0.73 mg/dL 0.57-1.25 jgsr=480) GLUCOSE RANDOM (BEAKER) 85 mg/dL 70-105 (test bqsn=547) CALCIUM (BEAKER) (test 9.3 mg/dL 8.4-10.2 qgyq=458) EGFR (BEAKER) (test mL/min/1.73 sq m INSUFFICIENT CLINICAL DATA rqis=0141) TO CALCULATE ESTIMATED GFR. [id number] 05:02:00 Test Item Value Reference Range Comments PARTIAL THROMBOPLASTIN TIME (BEAKER) (test 32.0 seconds 22.5-36.0 qoaj=419) PROTHROMBIN TIME/[id number] 05:01:00 Test Item Value Reference Range Comments PROTIME (BEAKER) (test dprw=378) 15.9 seconds 11.7-14.7 INR (BEAKER) (test hooe=320) 1.3 <=5.9 RECOMMENDED COUMADIN/WARFARIN INR THERAPY RANGESSTANDARD DOSE: 2.0 - 3.0 Includes: PROPHYLAXIS forvenous thrombosis, systemic embolization; TREATMENT for venous thrombosis and/or pulmonary embolus.HIGH RISK: Target INR is 2.5-3.5 for patients with mechanical heart valves.CBC (HEMOGRAM ONLY)2017-11-09 04:56:00 Test Item Value Reference Range Comments WHITE BLOOD CELL COUNT (BEAKER) (test ytql=144) 9.6 K/ L 3.5-10.5 RED BLOOD CELL COUNT (BEAKER) (test vjia=892) 4.22 M/ L 3.93-5.22 HEMOGLOBIN (BEAKER) (test eezk=493) 10.2 GM/DL 11.2-15.7 HEMATOCRIT (BEAKER) (test pqry=556) 32.7 % 34.1-44.9 MEAN CORPUSCULAR VOLUME (BEAKER) (test iiqr=101) 77.5 fL 79.4-94.8 MEAN CORPUSCULAR HEMOGLOBIN (BEAKER) (test 24.2 pg 25.6-32.2 akdm=256) MEAN CORPUSCULAR HEMOGLOBIN CONC (BEAKER) (test 31.2 GM/DL 32.2-35.5 wqyu=510) RED CELL DISTRIBUTION WIDTH (BEAKER) (test 19.1 % 11.7-14.4 tsxk=088) PLATELET COUNT (BEAKER) (test bcfa=917) 228 K/CU MM 150-450 MEAN PLATELET VOLUME (BEAKER) (test muyw=103) 10.5 fL 9.4-12.3 NUCLEATED RED BLOOD CELLS (BEAKER) (test 0 /100 WBC 0-0 cjpo=174) MR, ABDOMEN, [id number] 16:43:00FINAL REPORT MRCP, MRI of abdomen without contrast Clinical History: Cholelithiasis Technique: Multiplanar and multisequence MR images of the biliary system are obtained, with dedicated MRCP protocol and images. No intravenous contrast is administered. In addition, 3 dimensionalreformatted images of the biliary system are obtained to evaluate the biliary anatomy. Comparison: None. Discussion: This examination is not dedicated to evaluating masses or parenchymal abnormalitiesof the abdominal organs. There is a 5 [...] edema in the anterior abdomen, possibly related torecent surgery. No drainable fluid collection. No pancreatic [...] in the gallbladder lumen. Signed: Edwardo Alcantara MDReport Verified Date/Time: 2017 16:43:17 Reading Location: [facility] C013Y CT Body Reading Room HEPATIC FUNCTION [id number] 09:48:00 Test Item Value Reference Range Comments TOTAL PROTEIN (BEAKER) (test xrlq=534) 6.9 gm/dL 6.0-8.3 ALBUMIN (BEAKER) (test mmyh=2234) 4.0 g/dL 3.5-5.0 BILIRUBIN TOTAL (BEAKER) (test xqdk=486) 0.5 mg/dL 0.2-1.2 BILIRUBIN DIRECT (BEAKER) (test omdr=376) 0.3 mg/dL 0.1-0.5 ALKALINE PHOSPHATASE (BEAKER) (test hhyo=116) 74 U/L 40-150 AST (SGOT) (BEAKER) (test wwar=241) 18 U/L 5-34 ALT (SGPT) (BEAKER) (test vrnz=580) 20 U/L 6-55 LACTIC ACID, VENOUS, WHOLE [id number] 23:51:00 Test Item Value Reference Range Comments LACTATE BLOOD VENOUS (2) (BEAKER) (test 1.0 mmol/L 0.5-2.2 pvib=7757) Effective 10/15/2015: Units/Reference Range ChangeNew: 0.5-2.2 mmol/L Previous: 5 -20 mg/dLHCG, QUANTITATIVE, [id number] 23:39:00 Test Item Value Reference Range Comments GONADOTROPIN, CHORIONIC (HCG) QUANT (BEAKER) (test 34 mIU/mL 0-10 aooc=727) Non- Females: <10 mIU/mL Females: Gestation Age Reference Range(mIU/mL) 0.2-1 Week 5-50 1-2 Weeks 50-500 2-3 Weeks 100-5,000 3-4Weeks 500-10,000 4 -5 Weeks 1,000-50,000 5-6 Weeks 10,000-100,000 6-8 Weeks 15,000-200,000 2-3 Months 10,000-100,000CBC W/PLT COUNT & AUTO [id number] 20:31:00 Test Item Value Reference Range Comments WHITE BLOOD CELL COUNT (BEAKER) (test pyyv=061) 12.7 K/ L 3.5-10.5 RED BLOOD CELL COUNT (BEAKER) (test lgtn=459) 4.18 M/ L 3.93-5.22 HEMOGLOBIN (BEAKER) (test lwoz=939) 10.0 GM/DL 11.2-15.7 HEMATOCRIT (BEAKER) (test xwrc=939) 32.6 % 34.1-44.9 MEAN CORPUSCULAR VOLUME (BEAKER) (test fmuw=427) 78.0 fL 79.4-94.8 MEAN CORPUSCULAR HEMOGLOBIN (BEAKER) (test 23.9 pg 25.6-32.2 udlq=515) MEAN CORPUSCULAR HEMOGLOBIN CONC (BEAKER) (test 30.7 GM/DL 32.2-35.5 mjxu=228) RED CELL DISTRIBUTION WIDTH (BEAKER) (test 18.7 % 11.7-14.4 kcup=819) PLATELET COUNT (BEAKER) (test lttx=583) 223 K/CU MM 150-450 MEAN PLATELET VOLUME (BEAKER) (test lako=216) 10.5 fL 9.4-12.3 NUCLEATED RED BLOOD CELLS (BEAKER) (test 0 /100 WBC 0-0 tqyf=866) BASIC METABOLIC [id number] 20:14:00 Test Item Value Reference Range Comments SODIUM (BEAKER) (test 138 meq/L 136-145 nqrb=152) POTASSIUM (BEAKER) (test 3.5 meq/L 3.5-5.1 izhh=373) CHLORIDE (BEAKER) (test 112 meq/L 98-107 erxv=885) CO2 (BEAKER) (test 13 meq/L 22-29 hmol=520) BLOOD UREA NITROGEN 5 mg/dL 7-21 (BEAKER) (test dkzw=090) CREATININE (BEAKER) (test 0.63 mg/dL 0.57-1.25 vruo=270) GLUCOSE RANDOM (BEAKER) 113 mg/dL 70-105 (test xbgg=844) CALCIUM (BEAKER) (test 8.7 mg/dL 8.4-10.2 dkgg=847) EGFR (BEAKER) (test mL/min/1.73 sq m INSUFFICIENT CLINICAL DATA mlgd=6718) TO CALCULATE ESTIMATED GFR. [id number] 20:14:00 Test Item Value Reference Range Comments LIPASE (BEAKER) (test xwxl=579) < U/L 8-78 [id number] 20:13:00 Test Item Value Reference Range Comments PHOSPHORUS (BEAKER) (test nuwa=738) 2.7 mg/dL 2.3-4.7 [id number] 20:13:00 Test Item Value Reference Range Comments MAGNESIUM (BEAKER) (test jwru=940) 2.0 mg/dL 1.6-2.6 [id number] 20:13:00 Test Item Value Reference Range Comments AMYLASE (BEAKER) (test sohi=932) 27 U/L 25-125
[2018-01-23] MEDS ORDERED: NA CHLORIDE 0.9% 1,000 ML ONE (15:46)
[2018-01-23] MEDS ORDERED: KETOROLAC 30 MG/ML INJ ONE (15:46)
[2018-01-23 15:53] LABS: Absolute Lymphocytes (CBC) 2.3 K/uL (0.7-4.9); Absolute Monocytes 0.5 K/uL (0.1-1.3); Absolute Neutrophil 6.5 K/uL (1.8-8.0); Basophils % 0.7 % (0-1.3); Eosinophils % 1.8 % (0-4.4); Hematocrit 37.7 % (36.0-45.0); Lymphocytes % 24.5 % (15.3-44.8); MCH 25.7 pg (27.0-35.0); MCV 78.4 fL (80-100); MPV 9.3 fL (7.6-11.3); Monocytes % 4.9 % (3.3-12.3); RBC Red Blood Cell Count 4.81 M/uL (3.86-4.86)
[2018-01-23 16:17] LABS: Urine Blood NEGATIVE (NEG); Urine Glucose NEGATIVE (NEG); Urine Protein NEGATIVE (NEG); Urine Specific Gravity 1.025 (1.005-1.030)
[2018-01-23 16:24] LABS: ALT/SGPT 15 U/L (12-78); AST/SGOT 18 U/L (15-37); Albumin 4.1 g/dL (3.4-5.0); Alkaline Phosphatase 93 U/L (45-117); Amylase Level 40 U/L (25-115); BUN Blood Urea Nitrogen 11 mg/dL (7-18); Bicarbonate 24 mmol/L (21-32); Bilirubin Direct < 0.1 mg/dL (0-0.2); Bilirubin Total 0.3 mg/dL (0.2-1.0); Glucose Level 90 mg/dL (74-106); Lipase 64 U/L (73-393); Potassium 3.7 mmol/L (3.5-5.1); Protein, Total 8.7 g/dL (6.4-8.2); Sodium Level 139 mmol/L (136-145)
[2018-01-23] MEDS ORDERED: ONDANSETRON 4 MG/2 ML VIAL ONE (16:34)
--- NOTE | 2018-01-23 16:55 | RAD REPORT ---
EXAM DESCRIPTION: CT - Abdomen Pelvis W Contrast - 01/23/2018 4:38 pm CLINICAL HISTORY: Abdominal pain right upper quadrant pain for 3 days with nausea COMPARISON: none. TECHNIQUE: Computed axial tomography of the abdomen pelvis was obtained. 100 cc [id number]-300 was admin istered intravenously. Oral contrast was not requested which limits evaluation of bowel. All CT scans are performed using dose optimization technique as appropriate and may include automated exposure control or mA/KV adjustment according to patient size. FINDINGS: The gallbladder has been removed. A stent is present within the common bile duct and duode num. The majority of the stent however does lie within the duodenum. Common bile duct measures 8.5 mi llimeters. The liver, spleen, pancreas, adrenal and kidneys appear unremarkable. There is no evidence of diverticulitis. The appendix is upper limits normal caliber. An irregularly shaped 2.2 centimeter left ovarian cyst is present. Significant free fluid is not note d. IMPRESSION: The majority of a biliary stent lies within the duodenum. 2.2 centimeter left ovarian cysts is irregularly shaped and likely has recently ruptured. No signific ant free fluid is noted
--- NOTE | 2018-01-23 17:12 | EDPHYS ---
Physician Documentation [facility] Name: Allison Marvin Age: 27 yrs Sex: Female : 1990 Arrival Date: 01/23/2018 Time: 14:47 Bed 26 Private MD: Grover Alvarenga ED Physician Levon Ruvalcaba HPI: 01/23 16:54 This 27 yrs old Female presents to ER via Ambulatory with complaints of kb Abdominal Pain. 16:54 The patient presents with abdominal pain in the right upper quadrant. Onset: The kb symptoms/episode began/occurred 3 day(s) ago. The symptoms radiate to right back. Associated signs and symptoms: none. The symptoms are described as constant. Modifying factors: The symptoms are alleviated by nothing, the symptoms are aggravated by pressure. Severity of pain: At its worst the pain was moderate in the emergency department the pain is unchanged. The patient has not experienced similar symptoms in the past. The patient has not recently seen a physician. Pt states she had her gallbladder removed 2 months ago. States the surgery started at [facility] and was complicated so they transferred her to [facility] in [place] to finish the surgery. Reports she has been having RUQ pain that radiates to right back for 3 days.. 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 - Social history:: Smoking status: Patient/guardian denies using tobacco. - Ebola Screening: : No symptoms or risks identified at this time. ROS: 16:52 Constitutional: Negative for fever, chills, and weight loss, ENT: Negative for injury, kb pain, and discharge, Neck: Negative for injury, pain, and swelling, Cardiovascular: Negative for chest pain, palpitations, and edema, Respiratory: Negative for shortness of breath, cough, wheezing, and pleuritic chest pain, : Negative for injury, bleeding, discharge, and swelling, MS/Extremity: Negative for injury and deformity, Skin: Negative for injury, rash, and discoloration, Neuro: Negative for headache, weakness, numbness, tingling, and seizure. 16:52 Abdomen/GI: Positive for abdominal pain. 16:52 Back: Positive for flank pain. Exam: 16:52 Constitutional: This is a well developed, well nourished patient who is awake, alert, kb and in no acute distress. Head/Face: Normocephalic, atraumatic. Neck: Trachea midline, no thyromegaly or masses palpated, and no cervical lymphadenopathy. Supple, full range of motion without nuchal rigidity, or vertebral point tenderness. No Meningismus. Chest/axilla: Normal chest wall appearance and motion. Nontender with no deformity. No lesions are appreciated. Cardiovascular: Regular rate and rhythm with a normal S1 and S2. No gallops, murmurs, or rubs. Normal PMI, no JVD. No pulse deficits. Respiratory: Lungs have equal breath sounds bilaterally, clear to auscultation and percussion. No rales, rhonchi or wheezes noted. No increased work of breathing, no retractions or nasal flaring. Back: No spinal tenderness. No costovertebral tenderness. Full range of motion. Skin: Warm, dry with normal turgor. Normal color with no rashes, no lesions, and no evidence of cellulitis. MS/ Extremity: Pulses equal, no cyanosis. Neurovascular intact. Full, normal range of motion. Neuro: Awake and alert, GCS 15, oriented to person, place, time, and situation. Cranial nerves II-XII grossly intact. Motor strength 5/5 in all extremities. Sensory grossly intact. Cerebellar exam normal. Normal gait. 16:52 Abdomen/GI: Inspection: scar(s), are noted in the right upper quadrant, Bowel sounds: normal, Palpation: soft, in all quadrants, moderate abdominal tenderness, in the right upper quadrant and right lower quadrant. Vital Signs: 15:16 BP 119 / 75; Pulse 87; Resp 16 S; Temp 98.5(O); Pulse Ox 100% on R/A; Weight 58.97 kg jl7 (R); Height 5 ft. 4 in. (162.56 cm) (R); Pain 10/10; 16:09 BP 93 / 55; Pulse 69; Resp 18; Pulse Ox 100% on R/A; tl3 18:02 BP 93 / 53; Pulse 52; Resp 18; Pulse Ox 100% ; tl3 15:16 Body Mass Index 22.31 (58.97 kg, 162.56 cm) jl7 MDM: 15:20 Patient medically screened. kb 16:52 Data reviewed: vital signs, nurses notes. Data interpreted: Pulse oximetry: on room air kb is 100 %. Interpretation: normal. 17:11 Counseling: I had a detailed discussion with the patient and/or guardian regarding: the kb historical points, exam findings, and any diagnostic results supporting the discharge/admit diagnosis, lab results, radiology results, the need for outpatient follow up, a family practitioner, a general surgeon, a surgical elastic knitter hand frame, to return to the emergency department if symptoms worsen or persist or if there are any questions or concerns that arise at home. 17:34 ED course: Pt reports she has Tylenol #4 and Tramadol at home for pain. Educated that kb she needs to follow up with the Dr that placed the stent.. 01/23 15:28 Order name: Amylase, Serum; Complete Time: 16:25 kb 01/23 15:28 Order name: Basic Metabolic Panel; Complete Time: 16:25 kb 01/23 15:28 Order name: CBC with Diff; Complete Time: 16:04 kb 01/23 15:28 Order name: Creatinine for Radiology; Complete Time: 16:15 kb 01/23 15:28 Order name: Hepatic Function; Complete Time: 16:25 kb 01/23 15:28 Order name: Lipase; Complete Time: 16:25 kb 01/23 15:28 Order name: Urine Test (obtain specimen); Complete Time: 18:05 kb 01/23 15:28 Order name: CT Abd/Pelvis - W/Contrast; Complete Time: 16:57 kb 01/23 15:33 Order name: Urine Dipstick--Ancillary (enter results); Complete Time: 16:18 bd 01/23 15:33 Order name: Urine --Ancillary (enter results); Complete Time: 16:18 bd 01/23 15:28 Order name: IV Saline Lock; Complete Time: 18:05 kb 01/23 15:28 Order name: Labs collected and sent; Complete Time: 18:05 kb 01/23 15:28 Order name: Urine Dipstick-Ancillary (obtain specimen); Complete Time: 18:05 kb Administered Medications: 15:50 Drug: TORadol 30 mg Route: IVP; Site: right forearm; tl3 18:03 Follow up: Response: No adverse reaction tl3 15:50 Drug: NS 0.9% 1000 ml Route: IV; Rate: 1000 ml; Site: right forearm; Delivery: Primary tl3 tubing; 16:50 Follow up: IV Status: Completed infusion; IV Intake: 1000ml tl3 16:32 Drug: Zofran 2 mg Route: IVP; Infused Over: 2 mins; Site: right forearm; tl3 18:03 Follow up: Response: No adverse reaction tl3 17:40 Drug: [place] 10 mg-325 mg 1 tabs Route: PO; tl3 18:03 Follow up: Response: Medication administered at discharge. tl3 Disposition: 01/24 11:13 Co-signature as Attending Physician, Levon Ruvalcaba MD I agree with the assessment and gilberto plan of care. Disposition: 01/23/18 17:12 Discharged to Home. Impression: Upper abdominal pain, unspecified. - Condition is Stable. - Discharge Instructions: Abdominal Pain, Adult, [id number]. - Prescriptions for Diclofenac Sodium 75 mg Oral Tablet Sustained Release - take 1 tablet by ORAL route 2 times per day; 30 tablet. Zofran 4 mg Oral Tablet - take 1 tablet by ORAL route every 6 hours As needed; 20 tablet. - Medication Reconciliation Form, Thank You Letter, Antibiotic Education, Prescription Opioid Use form. - Follow up: Private Physician; When: 2 - 3 days; Reason: Recheck today's complaints, Continuance of care, Re-evaluation by your physician. Follow up: Emergency Department; When: As needed; Reason: Worsening of condition. Signatures: Dispatcher [employer] EDMN Monica Galeano, SCREENING UNIT REGISTERED NURSE-C SCREENING UNIT REGISTERED NURSE-Levon Otero MD MD cha Leal, Jahala, RN RN jl7 Anastasia Malik RN RN tl3 Corrections: (The following items were deleted from the chart) 01/23 18:05 17:12 01/23/2018 17:12 Discharged to Home. Impression: Upper abdominal pain, tl3 unspecified. Condition is Stable. Forms are Medication Reconciliation Form, Thank You Letter, Antibiotic Education, Prescription Opioid Use. Follow up: Private Physician; When: 2 - 3 days; Reason: Recheck today's complaints, Continuance of care, Re-evaluation by your physician. Follow up: Emergency Department; When: As needed; Reason: Worsening of condition. kb
--- NOTE | 2018-01-23 17:12 | ER ---
Nurse's Notes [facility] Name: Allison Marvin Age: 27 yrs Sex: Female : 1990 Arrival Date: 01/23/2018 Time: 14:47 Bed 26 Private MD: Grover Alvarenga Diagnosis: Upper abdominal pain, unspecified Presentation: 01/23 15:13 Presenting complaint: Patient states: RUQ pain, radiates to back, x 3 days, reports jl7 nausea and dysuria. Transition of care: patient was not received from another setting of care. Onset of symptoms was January 20, 2018. Risk Assessment: Do you want to hurt yourself or someone else? Patient reports no desire to harm self or others. Initial Sepsis Screen: Does the patient meet any 2 criteria? No. Patient's initial sepsis screen is negative. Does the patient have a suspected source of infection? No. Patient's initial sepsis screen is negative. Care prior to arrival: None. 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 - Social history:: Smoking status: Patient/guardian denies using tobacco. - Ebola Screening: : No symptoms or risks identified at this time. Screenin:30 Abuse screen: Denies threats or abuse. Nutritional screening: No deficits noted. tl3 Tuberculosis screening: No symptoms or risk factors identified. Fall Risk None identified. Assessment: 15:30 General: Appears distressed, uncomfortable, slender, well groomed, well developed, tl3 emaciated, Behavior is calm, cooperative, appropriate for age, anxious. Pain: Complains of pain in right upper quadrant Pain currently is 10 out of 10 on a pain scale. Neuro: Level of Consciousness is awake, alert, obeys commands, Oriented to person, place, time, situation, Appropriate for age. Cardiovascular: Patient's skin is warm and dry. Respiratory: Airway is patent Respiratory effort is even, unlabored, Respiratory pattern is regular, symmetrical. GI: Bowel sounds present X 4 quads. Abdomen is tender to palpation in right upper quadrant and right lower quadrant. : No signs and/or symptoms were reported regarding the genitourinary system. Urine is clear. 15:30 GI: Reports upper abdominal pain, pt had gall bladder surgery two months ago. EENT: No tl3 signs and/or symptoms were reported regarding the EENT system. Derm: No signs and/or symptoms reported regarding the dermatologic system. Musculoskeletal: No signs and/or symptoms reported regarding the musculoskeletal system. 17:00 Reassessment: No changes from previously documented assessment. Patient and/or family tl3 updated on plan of care and expected duration. Pain level reassessed. Patient is alert, oriented x 3, equal unlabored respirations, skin warm/dry/pink. 18:02 Reassessment: No changes from previously documented assessment. Patient and/or family tl3 updated on plan of care and expected duration. Pain level reassessed. Patient is alert, oriented x 3, equal unlabored respirations, skin warm/dry/pink. Vital Signs: 15:16 BP 119 / 75; Pulse 87; Resp 16 S; Temp 98.5(O); Pulse Ox 100% on R/A; Weight 58.97 kg jl7 (R); Height 5 ft. 4 in. (162.56 cm) (R); Pain 10/10; 16:09 BP 93 / 55; Pulse 69; Resp 18; Pulse Ox 100% on R/A; tl3 18:02 BP 93 / 53; Pulse 52; Resp 18; Pulse Ox 100% ; tl3 15:16 Body Mass Index 22.31 (58.97 kg, 162.56 cm) jl7 ED Course: 14:47 Patient arrived in ED. sb2 14:47 Grover Alvarenga DO is Private Physician. sb2 14:58 Monica Galeano FNP-C is [facility]. kb 14:58 Levon Ruvalcaba MD is Attending Physician. kb 15:15 Triage completed. jl7 15:16 Arm band placed on right wrist. jl7 15:30 Anastasia Malik, RN is Primary Nurse. tl3 15:30 Patient has correct armband on for positive identification. Bed in low position. Call tl3 light in reach. Side rails up X 1. Adult w/ patient. Pulse ox on. NIBP on. 15:30 No provider procedures requiring assistance completed. Initial lab(s) drawn, by wi, tl3 sent to lab. Urine collected: clean catch specimen, clear. Inserted saline lock: 20 gauge in right forearm, using aseptic technique. Blood collected. 15:32 Radiology exam delayed due to lab results not completed at this time. test nj not completed at this time. 16:07 Radiology exam delayed due to lab results not completed at this time. (BUN/Creatinine) vm2 test not completed at this time. 16:[address] 2 16:[address] completed. Patient tolerated procedure well. Patient moved back from CT. vm2 16:38 CT Abd/Pelvis - W/Contrast In Process Unspecified. EDMS 18:02 IV discontinued, intact, bleeding controlled, No redness/swelling at site. Pressure tl3 dressing applied. Administered Medications: 15:50 Drug: TORadol 30 mg Route: IVP; Site: right forearm; tl3 18:03 Follow up: Response: No adverse reaction tl3 15:50 Drug: NS 0.9% 1000 ml Route: IV; Rate: 1000 ml; Site: right forearm; Delivery: Primary tl3 tubing; 16:50 Follow up: IV Status: Completed infusion; IV Intake: 1000ml tl3 16:32 Drug: Zofran 2 mg Route: IVP; Infused Over: 2 mins; Site: right forearm; tl3 18:03 Follow up: Response: No adverse reaction tl3 17:40 Drug: [place] 10 mg-325 mg 1 tabs Route: PO; tl3 18:03 Follow up: Response: Medication administered at discharge. tl3 Intake: 16:50 IV: 1000ml; Total: 1000ml. tl3 Outcome: 17:12 Discharge ordered by . erin 18:02 Discharged to home ambulatory. tl3 18:02 Condition: stable 18:02 Discharge instructions given to patient, family, Instructed on discharge instructions, follow up and referral plans. medication usage, Demonstrated understanding of instructions, follow-up care, medications, Prescriptions given X 2. 18:05 Patient left the ED. tl3 Signatures: Dispatcher [employer] EDMS Monica Galeano, SPECIAL POLICE OFFICERKirkC Deejay Nguyen Jahala, RN RN jl7 Kita Escobedo 2 Sarah Mcgrath 2 Anastasia Malik, NEIDA RN tl3 Corrections: (The following items were deleted from the chart) 16:32 16:32 Zofran 2 mg IVP in right forearm tl3 tl3
[2018-01-23] MEDS ORDERED: HYDROCODONE/APAP 10/325 TAB ONE (17:40)
[2018-01-23 18:26] VITALS: TEMP 98.5; O2SAT 100
[2018-01-23 18:28] VITALS: BP 93/53
== END 2018-01-23 18:05 | disposition home or self-care (01) ==
LOC: ER 14:45
DX: R10.11 Right upper quadrant pain (principal)
CPT/HCPCS: 36415; 74177; 80048; 80076; 81003; 81025; 82150; 83690; 85025; 96361; 96374; 96375; 99284; J2405; J7030; Q9967

== ENCOUNTER 2021-08-16 23:39 | Emergency (ER) | payer OTHER ==
--- OUTSIDE RECORDS SUMMARY | 2021-08-16 23:44 | XMS REPORT | Continuity of Care Document ---
:1990 Author Organization [facility] Address [address] [place] [address] Dr. Guzman [address] [place] [address] Care Team Providers Name Role Phone G_Pappas Attending Clinician Unavailable CHLOE RAMOS Attending Clinician Unavailable PRIYA PARIKH Attending Clinician Unavailable Vinod MIRANDA Attending Clinician Unavailable FLAVIO Attending Clinician Unavailable G_Pappas Admitting Clinician Unavailable ALEJANDRO MICHEL Admitting Clinician Unavailable RODRIGO ANTON Admitting Clinician Unavailable FLAVIO Admitting Clinician Unavailable Payers Payer Name Policy Type Policy Number Effective Date Expiration Date [facility] [id number] 2016 [facility] 00:00:00 (MEDICAID HMO) Problems This patient has no known problems. Allergies, Adverse Reactions, Alerts This patient has no known allergies or adverse reactions. Medications This patient has no known medications. Procedures This patient has no known procedures. Encounters Start End Encounter Admission Attending Care Care Encounter Source Date/Time Date/Time Type Type Clinicians Facility Department ID 2020-04-30 2020-04-30 Outpatient G_Pappas [facility] [id number] [place] 02:44:00 02:44:00 [id number] 2019-12-20 2019-12-20 [place] [facility] [place] [id number]- [id number] [place] 05:00:00 05:00:00 [id number] Results Test Description Test Time Test Comments Results Result Comments Source BLOOD CULTURE 2018-06-21 19:01:00 Test Item Value Reference Range Interpretation Comme nts CULTURE (BEAKER) (test code = 1095) No growth in 5 days BLOOD [id number] 19:01:00 Test Item Value Reference Range Interpretation Comments CULTURE (BEAKER) (test No growth in 5 days code = 1095) CBC W/PLT COUNT & AUTO [id number] 14:44:00 Test Item Value Reference Range Interpretation Comments WHITE BLOOD CELL COUNT (BEAKER) 4.3 K/ L 3.5-10.5 (test code = 775) RED BLOOD CELL COUNT (BEAKER) 4.26 M/ L 3.93-5.22 (test code = 761) HEMOGLOBIN (BEAKER) (test code = 10.9 GM/DL 11.2-15.7 L 410) HEMATOCRIT (BEAKER) (test code = 36.3 % 34.1-44.9 411) MEAN CORPUSCULAR VOLUME (BEAKER) 85.2 fL 79.4-94.8 (test code = 753) MEAN CORPUSCULAR HEMOGLOBIN 25.6 pg 25.6-32.2 (BEAKER) (test code = 751) MEAN CORPUSCULAR HEMOGLOBIN CONC 30.0 GM/DL 32.2-35.5 L (BEAKER) (test code = 752) RED CELL DISTRIBUTION WIDTH 18.6 % 11.7-14.4 H (BEAKER) (test code = 412) PLATELET COUNT (BEAKER) (test 209 K/CU MM 150-450 code = 756) MEAN PLATELET VOLUME (BEAKER) 11.0 fL 9.4-12.3 (test code = 754) NUCLEATED RED BLOOD CELLS 0 /100 WBC 0-0 (BEAKER) (test code = 413) (CELLAVISION MANUAL DIFF)2018-06-21 14:44:00 Test Item Value Reference Range Interpretation Comments NEUTROPHILS - REL 33 % (CELLAVISION)(BEAKER) (test code = 2816) LYMPHOCYTES - REL 44 % (CELLAVISION)(BEAKER) (test code = 2817) MONOCYTES - REL 8 % (CELLAVISION)(BEAKER) (test code = 2818) EOSINOPHILS - REL 4 % (CELLAVISION)(BEAKER) (test code = 2819) MYELOCYTES - REL 1 % 0-0 H (CELLAVISION)(BEAKER) (test code = 2822) BANDS - REL (CELLAVISION)(BEAKER) 9 % 0-10 (test code = 2826) NEUTROPHILS - ABS 1.42 K/ul 1.56-6.13 L (CELLAVISION)(BEAKER) (test code = 2830) LYMPHOCYTES - ABS 1.89 K/ul 1.18-3.74 (CELLAVISION)(BEAKER) (test code = 2831) MONOCYTES - ABS 0.34 K/uL 0.24-0.36 (CELLAVISION)(BEAKER) (test code = 2832) EOSINOPHILS - ABS 0.17 K/uL 0.04-0.36 (CELLAVISION)(BEAKER) (test code = 2834) MYELOCYTES-ABS 0.04 K/uL 0.00-0.00 H (CELLAVISION)(BEAKER) (test code = 2837) BANDS - ABS (CELLAVISION)(BEAKER) 0.39 K/uL 0.00-0.80 (test code = 2840) TOTAL COUNTED (BEAKER) (test code = 100 1351) SMUDGE CELLS (BEAKER) (test code = Present 1371) GIANT PLATELETS (BEAKER) (test code Present = 313) HYPOCHROMIA (BEAKER) (test code = 1+ few 963) ANISOCYTOSIS (BEAKER) (test code = 1+ few 961) PLATELET CONCENTRATION Adequate (CELLAVISION)(BEAKER) (test code = 3438) Received comment: User comments: Slide comments:COMPREHENSIVE METABOLIC PANEL 2018-06-21 07:54:00 Test Item Value Reference Range Interpretation Comments TOTAL PROTEIN 6.7 gm/dL 6.0-8.3 (BEAKER) (test code = 770) ALBUMIN (BEAKER) 3.5 g/dL 3.5-5.0 (test code = 1145) ALKALINE PHOSPHATASE 188 U/L 40-150 H (BEAKER) (test code = 346) BILIRUBIN TOTAL 0.4 mg/dL 0.2-1.2 (BEAKER) (test code = 377) SODIUM (BEAKER) 137 meq/L 136-145 (test code = 381) POTASSIUM (BEAKER) 4.3 meq/L 3.5-5.1 (test code = 379) CHLORIDE (BEAKER) 109 meq/L 98-107 H (test code = 382) CO2 (BEAKER) (test 23 meq/L 22-29 code = 355) BLOOD UREA NITROGEN 11 mg/dL 7-21 (BEAKER) (test code = 354) CREATININE (BEAKER) 0.63 mg/dL 0.57-1.25 (test code = 358) GLUCOSE RANDOM 73 mg/dL 70-105 (BEAKER) (test code = 652) CALCIUM (BEAKER) 8.6 mg/dL 8.4-10.2 (test code = 697) AST (SGOT) (BEAKER) 57 U/L 5-34 H (test code = 353) ALT (SGPT) (BEAKER) 268 U/L 6-55 H (test code = 347) EGFR (BEAKER) (test mL/min/1.73 INSUFFIC IENT code = 1092) sq m CLINICAL DATA T O CALCULATE ESTIM ATED GFR. [place], [id number] 20:26:00INTRA OP IMAGINGReason for exam:->ABNORMAL IMAGING FINAL REPORT ERCP 3 views 06/20/2018 8:26 PM CLINICAL HISTORY: Instrument localization COMPARISON: None available IMPRESSION: Please correlate imaging report findings with the procedure note prepared by Dr. Vera, as an intra-procedure imaging consultation was not requested. Reported fluoroscopy time: 112.6 seconds. Signed: Rufus Martin Verified Date/Time: 06/20/2018 20:26:35 Reading Location: [facility] Radiology Reading Room CBC W/PLT COUNT & AUTO [id number] 15:03:00 Test Item Value Reference Range Interpretation Comments WHITE BLOOD CELL COUNT (BEAKER) 3.6 K/ L 3.5-10.5 (test code = 775) RED BLOOD CELL COUNT (BEAKER) 4.81 M/ L 3.93-5.22 (test code = 761) HEMOGLOBIN (BEAKER) (test code = 12.7 GM/DL 11.2-15.7 410) HEMATOCRIT (BEAKER) (test code = 39.9 % 34.1-44.9 411) MEAN CORPUSCULAR VOLUME (BEAKER) 83.0 fL 79.4-94.8 (test code = 753) MEAN CORPUSCULAR HEMOGLOBIN 26.4 pg 25.6-32.2 (BEAKER) (test code = 751) MEAN CORPUSCULAR HEMOGLOBIN CONC 31.8 GM/DL 32.2-35.5 L (BEAKER) (test code = 752) RED CELL DISTRIBUTION WIDTH 18.5 % 11.7-14.4 H (BEAKER) (test code = 412) PLATELET COUNT (BEAKER) (test 216 K/CU MM 150-450 code = 756) MEAN PLATELET VOLUME (BEAKER) 11.5 fL 9.4-12.3 (test code = 754) NUCLEATED RED BLOOD CELLS 0 /100 WBC 0-0 (BEAKER) (test code = 413) NEUTROPHILS RELATIVE PERCENT 23 % (BEAKER) (test code = 429) LYMPHOCYTES RELATIVE PERCENT 55 % (BEAKER) (test code = 430) MONOCYTES RELATIVE PERCENT 14 % (BEAKER) (test code = 431) EOSINOPHILS RELATIVE PERCENT 7 % (BEAKER) (test code = 432) BASOPHILS RELATIVE PERCENT 1 % (BEAKER) (test code = 437) NEUTROPHILS ABSOLUTE COUNT 0.84 K/ L 1.56-6.13 L (BEAKER) (test code = 670) LYMPHOCYTES ABSOLUTE COUNT 1.95 K/ L 1.18-3.74 (BEAKER) (test code = 414) MONOCYTES ABSOLUTE COUNT (BEAKER) 0.50 K/ L 0.24-0.36 H (test code = 415) EOSINOPHILS ABSOLUTE COUNT 0.25 K/ L 0.04-0.36 (BEAKER) (test code = 416) BASOPHILS ABSOLUTE COUNT (BEAKER) 0.04 K/ L 0.01-0.08 (test code = 417) IMMATURE GRANULOCYTES-RELATIVE 0 % 0-1 PERCENT (BEAKER) (test code = 2801) COMPREHENSIVE METABOLIC [id number] 07:54:00 Test Item Value Reference Range Interpretation Comments TOTAL PROTEIN 7.4 gm/dL 6.0-8.3 (BEAKER) (test code = 770) ALBUMIN (BEAKER) 3.8 g/dL 3.5-5.0 (test code = 1145) ALKALINE PHOSPHATASE 238 U/L 40-150 H (BEAKER) (test code = 346) BILIRUBIN TOTAL 0.5 mg/dL 0.2-1.2 (BEAKER) (test code = 377) SODIUM (BEAKER) 137 meq/L 136-145 (test code = 381) POTASSIUM (BEAKER) 3.9 meq/L 3.5-5.1 (test code = 379) CHLORIDE (BEAKER) 107 meq/L 98-107 (test code = 382) CO2 (BEAKER) (test 23 meq/L 22-29 code = 355) BLOOD UREA NITROGEN 9 mg/dL 7-21 (BEAKER) (test code = 354) CREATININE (BEAKER) 0.62 mg/dL 0.57-1.25 (test code = 358) GLUCOSE RANDOM 77 mg/dL 70-105 (BEAKER) (test code = 652) CALCIUM (BEAKER) 8.7 mg/dL 8.4-10.2 (test code = 697) AST (SGOT) (BEAKER) 199 U/L 5-34 H (test code = 353) ALT (SGPT) (BEAKER) 459 U/L 6-55 H (test code = 347) EGFR (BEAKER) (test mL/min/1.73 INSUFFIC IENT code = 1092) sq m CLINICAL DATA T O CALCULATE ESTIM ATED GFR. HEPATIC FUNCTION [id number] 13:20:00 Test Item Value Reference Range Interpretation Comments TOTAL PROTEIN (BEAKER) 8.2 gm/dL 6.0-8.3 Speci men slightly (test code = 770) hemolyzed ALBUMIN (BEAKER) (test 4.2 g/dL 3.5-5.0 Speci men slightly code = 1145) hemolyzed BILIRUBIN TOTAL 1.6 mg/dL 0.2-1.2 H Specimen sli ghtly (BEAKER) (test code = hemoly zed 377) BILIRUBIN DIRECT 1.2 mg/dL 0.1-0.5 H Specimen sl ightly (BEAKER) (test code = hemoly zed 706) ALKALINE PHOSPHATASE 289 U/L 40-150 H (BEAKER) (test code = 346) AST (SGOT) (BEAKER) 584 U/L 5-34 H Specimen slightly (test code = 353) hemolyzed ALT (SGPT) (BEAKER) 676 U/L 6-55 H Specimen slightly (test code = 347) hemolyzed BASIC METABOLIC [id number] 06:15:00 Test Item Value Reference Range Interpretation Comments SODIUM (BEAKER) 134 meq/L 136-145 L (test code = 381) POTASSIUM (BEAKER) 4.1 meq/L 3.5-5.1 (test code = 379) CHLORIDE (BEAKER) 102 meq/L 98-107 (test code = 382) CO2 (BEAKER) (test 24 meq/L 22-29 code = 355) BLOOD UREA NITROGEN 7 mg/dL 7-21 (BEAKER) (test code = 354) CREATININE (BEAKER) 0.69 mg/dL 0.57-1.25 (test code = 358) GLUCOSE RANDOM 93 mg/dL 70-105 (BEAKER) (test code = 652) CALCIUM (BEAKER) 9.3 mg/dL 8.4-10.2 (test code = 697) EGFR (BEAKER) (test mL/min/1.73 INSUFFIC IENT CLINICAL code = 1092) sq m DATA TO CALCULA TE ESTIMATED GFR. HEPATIC FUNCTION [id number] 06:14:00 Test Item Value Reference Range Interpretation Comments TOTAL PROTEIN (BEAKER) (test code = 8.1 gm/dL 6.0-8.3 770) ALBUMIN (BEAKER) (test code = 1145) 4.2 g/dL 3.5-5.0 BILIRUBIN TOTAL (BEAKER) (test code 1.9 mg/dL 0.2-1.2 H = 377) BILIRUBIN DIRECT (BEAKER) (test 1.5 mg/dL 0.1-0.5 H code = 706) ALKALINE PHOSPHATASE (BEAKER) (test 291 U/L 40-150 H code = 346) AST (SGOT) (BEAKER) (test code = 842 U/L 5-34 H 353) ALT (SGPT) (BEAKER) (test code = 773 U/L 6-55 H 347) CBC W/PLT COUNT & AUTO [id number] 05:43:00 Test Item Value Reference Range Interpretation Comments WHITE BLOOD CELL COUNT (BEAKER) 3.1 K/ L 3.5-10.5 L (test code = 775) RED BLOOD CELL COUNT (BEAKER) 4.75 M/ L 3.93-5.22 (test code = 761) HEMOGLOBIN (BEAKER) (test code = 12.1 GM/DL 11.2-15.7 410) HEMATOCRIT (BEAKER) (test code = 39.3 % 34.1-44.9 411) MEAN CORPUSCULAR VOLUME (BEAKER) 82.7 fL 79.4-94.8 (test code = 753) MEAN CORPUSCULAR HEMOGLOBIN 25.5 pg 25.6-32.2 L (BEAKER) (test code = 751) MEAN CORPUSCULAR HEMOGLOBIN CONC 30.8 GM/DL 32.2-35.5 L (BEAKER) (test code = 752) RED CELL DISTRIBUTION WIDTH 18.2 % 11.7-14.4 H (BEAKER) (test code = 412) PLATELET COUNT (BEAKER) (test 231 K/CU MM 150-450 code = 756) MEAN PLATELET VOLUME (BEAKER) 10.5 fL 9.4-12.3 (test code = 754) NUCLEATED RED BLOOD CELLS 0 /100 WBC 0-0 (BEAKER) (test code = 413) NEUTROPHILS RELATIVE PERCENT 59 % (BEAKER) (test code = 429) LYMPHOCYTES RELATIVE PERCENT 26 % (BEAKER) (test code = 430) MONOCYTES RELATIVE PERCENT 11 % (BEAKER) (test code = 431) EOSINOPHILS RELATIVE PERCENT 3 % (BEAKER) (test code = 432) BASOPHILS RELATIVE PERCENT 1 % (BEAKER) (test code = 437) NEUTROPHILS ABSOLUTE COUNT 1.79 K/ L 1.56-6.13 (BEAKER) (test code = 670) LYMPHOCYTES ABSOLUTE COUNT 0.78 K/ L 1.18-3.74 L (BEAKER) (test code = 414) MONOCYTES ABSOLUTE COUNT (BEAKER) 0.34 K/ L 0.24-0.36 (test code = 415) EOSINOPHILS ABSOLUTE COUNT 0.10 K/ L 0.04-0.36 (BEAKER) (test code = 416) BASOPHILS ABSOLUTE COUNT (BEAKER) 0.04 K/ L 0.01-0.08 (test code = 417) IMMATURE GRANULOCYTES-RELATIVE 0 % 0-1 PERCENT (BEAKER) (test code = 2801) HEPATIC FUNCTION [id number] 06:44:00 Test Item Value Reference Range Interpretation Comments TOTAL PROTEIN (BEAKER) (test code = 7.0 gm/dL 6.0-8.3 770) ALBUMIN (BEAKER) (test code = 1145) 3.7 g/dL 3.5-5.0 BILIRUBIN TOTAL (BEAKER) (test code 0.3 mg/dL 0.2-1.2 = 377) BILIRUBIN DIRECT (BEAKER) (test 0.1 mg/dL 0.1-0.5 code = 706) ALKALINE PHOSPHATASE (BEAKER) (test 80 U/L 40-150 code = 346) AST (SGOT) (BEAKER) (test code = 41 U/L 5-34 H 353) ALT (SGPT) (BEAKER) (test code = 29 U/L 6-55 347) BASIC METABOLIC [id number] 06:44:00 Test Item Value Reference Range Interpretation Comments SODIUM (BEAKER) 136 meq/L 136-145 (test code = 381) POTASSIUM (BEAKER) 3.6 meq/L 3.5-5.1 (test code = 379) CHLORIDE (BEAKER) 104 meq/L 98-107 (test code = 382) CO2 (BEAKER) (test 26 meq/L 22-29 code = 355) BLOOD UREA NITROGEN 6 mg/dL 7-21 L (BEAKER) (test code = 354) CREATININE (BEAKER) 0.63 mg/dL 0.57-1.25 (test code = 358) GLUCOSE RANDOM 99 mg/dL 70-105 (BEAKER) (test code = 652) CALCIUM (BEAKER) 8.8 mg/dL 8.4-10.2 (test code = 697) EGFR (BEAKER) (test mL/min/1.73 INSUFFIC IENT CLINICAL code = 1092) sq m DATA TO CALCULA TE ESTIMATED GFR. CBC W/PLT COUNT & AUTO [id number] 05:36:00 Test Item Value Reference Range Interpretation Comments WHITE BLOOD CELL COUNT (BEAKER) 5.1 K/ L 3.5-10.5 (test code = 775) RED BLOOD CELL COUNT (BEAKER) 4.19 M/ L 3.93-5.22 (test code = 761) HEMOGLOBIN (BEAKER) (test code = 10.8 GM/DL 11.2-15.7 L 410) HEMATOCRIT (BEAKER) (test code = 34.1 % 34.1-44.9 411) MEAN CORPUSCULAR VOLUME (BEAKER) 81.4 fL 79.4-94.8 (test code = 753) MEAN CORPUSCULAR HEMOGLOBIN 25.8 pg 25.6-32.2 (BEAKER) (test code = 751) MEAN CORPUSCULAR HEMOGLOBIN CONC 31.7 GM/DL 32.2-35.5 L (BEAKER) (test code = 752) RED CELL DISTRIBUTION WIDTH 18.1 % 11.7-14.4 H (BEAKER) (test code = 412) PLATELET COUNT (BEAKER) (test 228 K/CU MM 150-450 code = 756) MEAN PLATELET VOLUME (BEAKER) 10.8 fL 9.4-12.3 (test code = 754) NUCLEATED RED BLOOD CELLS 0 /100 WBC 0-0 (BEAKER) (test code = 413) NEUTROPHILS RELATIVE PERCENT 61 % (BEAKER) (test code = 429) LYMPHOCYTES RELATIVE PERCENT 22 % (BEAKER) (test code = 430) MONOCYTES RELATIVE PERCENT 12 % (BEAKER) (test code = 431) EOSINOPHILS RELATIVE PERCENT 3 % (BEAKER) (test code = 432) BASOPHILS RELATIVE PERCENT 1 % (BEAKER) (test code = 437) NEUTROPHILS ABSOLUTE COUNT 3.09 K/ L 1.56-6.13 (BEAKER) (test code = 670) LYMPHOCYTES ABSOLUTE COUNT 1.14 K/ L 1.18-3.74 L (BEAKER) (test code = 414) MONOCYTES ABSOLUTE COUNT (BEAKER) 0.63 K/ L 0.24-0.36 H (test code = 415) EOSINOPHILS ABSOLUTE COUNT 0.15 K/ L 0.04-0.36 (BEAKER) (test code = 416) BASOPHILS ABSOLUTE COUNT (BEAKER) 0.06 K/ L 0.01-0.08 (test code = 417) IMMATURE GRANULOCYTES-RELATIVE 0 % 0-1 PERCENT (BEAKER) (test code = 2801) RAD, CHEST, 2 [id number] 18:34:00Reason for exam:->cough, feverFINAL REPORT INDICATION: cough, fever COMPARISON: None. TECHNIQUE: Chest radiograph, two views, PA and lateral. FINDINGS / IMPRESSION:Lung volumes are normal and there is no evidence of pneumonia or pulmonary edema. Cardiac and mediastinal contours are normal. No pneumothorax or pleural effusion is demonstrated. In summary, unremarkable chest radiograph. Signed: Cirilo Wilson Verified Date/Time: 06/17/2018 18:34:53 Reading Location: [address] Consult Reading Room MR, ABDOMEN, WITH 2018-06-17 16:44:00WITH MRCPFINAL REPORT INDICATION:Right upper quadrant pain. COMPARISON: Abdomen radiograph and ultrasound June 16, 2018Abdomen pelvis CT December 09, 2017Abdomen MR and MRCP November 08, 2017 TECHNIQUE: MR of the Abdomen WITHOUT and WITH intravenous contrast. FINDINGS:Patient is status post cholecystectomy. There is a small amount of fluid in the gallbladder fossa, no formed fluid collection. There is no biliary ductal dilatation. Pancreas, spleen, adrenal glands, kidneys, visualized bowel loops are unremarkable. No upper abdominal, retroperitoneal, or mesenteric lymphadenopathy is demonstrated. Osseous structures unremarkable. IMPRESSION:Cholecystectomy with fluid in the gallbladder fossa but no formed fluid collection. No upper abdominal, retroperitoneal, or mesenteric lymphadenopathy. Signed: Cirilo Wilson MDReport Verified Date/Time: 06/17/2018 16:44:12 Reading Location: [facility] [id number] Ortho Consult Reading Room HEPATIC FUNCTION [id number] 05:48:00 Test Item Value Reference Range Interpretation Comments TOTAL PROTEIN (BEAKER) (test code = 6.5 gm/dL 6.0-8.3 770) ALBUMIN (BEAKER) (test code = 1145) 3.5 g/dL 3.5-5.0 BILIRUBIN TOTAL (BEAKER) (test code 0.3 mg/dL 0.2-1.2 = 377) BILIRUBIN DIRECT (BEAKER) (test 0.2 mg/dL 0.1-0.5 code = 706) ALKALINE PHOSPHATASE (BEAKER) (test 62 U/L 40-150 code = 346) AST (SGOT) (BEAKER) (test code = 14 U/L 5-34 353) ALT (SGPT) (BEAKER) (test code = 13 U/L 6-55 347) BASIC METABOLIC [id number] 05:48:00 Test Item Value Reference Range Interpretation Comments SODIUM (BEAKER) 135 meq/L 136-145 L (test code = 381) POTASSIUM (BEAKER) 3.7 meq/L 3.5-5.1 (test code = 379) CHLORIDE (BEAKER) 107 meq/L 98-107 (test code = 382) CO2 (BEAKER) (test 23 meq/L 22-29 code = 355) BLOOD UREA NITROGEN 6 mg/dL 7-21 L (BEAKER) (test code = 354) CREATININE (BEAKER) 0.64 mg/dL 0.57-1.25 (test code = 358) GLUCOSE RANDOM 85 mg/dL 70-105 (BEAKER) (test code = 652) CALCIUM (BEAKER) 8.4 mg/dL 8.4-10.2 (test code = 697) EGFR (BEAKER) (test mL/min/1.73 INSUFFIC IENT CLINICAL code = 1092) sq m DATA TO CALCULA TE ESTIMATED GFR. CBC W/PLT COUNT & AUTO [id number] 04:40:00 Test Item Value Reference Range Interpretation Comments WHITE BLOOD CELL COUNT (BEAKER) 7.1 K/ L 3.5-10.5 (test code = 775) RED BLOOD CELL COUNT (BEAKER) 4.20 M/ L 3.93-5.22 (test code = 761) HEMOGLOBIN (BEAKER) (test code = 10.7 GM/DL 11.2-15.7 L 410) HEMATOCRIT (BEAKER) (test code = 35.8 % 34.1-44.9 411) MEAN CORPUSCULAR VOLUME (BEAKER) 85.2 fL 79.4-94.8 (test code = 753) MEAN CORPUSCULAR HEMOGLOBIN 25.5 pg 25.6-32.2 L (BEAKER) (test code = 751) MEAN CORPUSCULAR HEMOGLOBIN CONC 29.9 GM/DL 32.2-35.5 L (BEAKER) (test code = 752) RED CELL DISTRIBUTION WIDTH 18.6 % 11.7-14.4 H (BEAKER) (test code = 412) PLATELET COUNT (BEAKER) (test 220 K/CU MM 150-450 code = 756) MEAN PLATELET VOLUME (BEAKER) 10.7 fL 9.4-12.3 (test code = 754) NUCLEATED RED BLOOD CELLS 0 /100 WBC 0-0 (BEAKER) (test code = 413) NEUTROPHILS RELATIVE PERCENT 66 % (BEAKER) (test code = 429) LYMPHOCYTES RELATIVE PERCENT 21 % (BEAKER) (test code = 430) MONOCYTES RELATIVE PERCENT 10 % (BEAKER) (test code = 431) EOSINOPHILS RELATIVE PERCENT 1 % (BEAKER) (test code = 432) BASOPHILS RELATIVE PERCENT 1 % (BEAKER) (test code = 437) NEUTROPHILS ABSOLUTE COUNT 4.70 K/ L 1.56-6.13 (BEAKER) (test code = 670) LYMPHOCYTES ABSOLUTE COUNT 1.49 K/ L 1.18-3.74 (BEAKER) (test code = 414) MONOCYTES ABSOLUTE COUNT (BEAKER) 0.72 K/ L 0.24-0.36 H (test code = 415) EOSINOPHILS ABSOLUTE COUNT 0.10 K/ L 0.04-0.36 (BEAKER) (test code = 416) BASOPHILS ABSOLUTE COUNT (BEAKER) 0.06 K/ L 0.01-0.08 (test code = 417) IMMATURE GRANULOCYTES-RELATIVE 0 % 0-1 PERCENT (BEAKER) (test code = 2801) TROPONIN [id number] 12:32:00 Test Item Value Reference Range Interpretation Comments TROPONIN I (BEAKER) (test code = 397) < ng/mL 0.00-0.03 Troponin I (TnI) levels must be interpreted in the context of the presenting symptoms and the clinical findings. Elevated TnI levels indicate myocardial damage, but are not specific for ischemic heart disease. Elevated TnI levels are seen in patients with other cardiac conditions (including myocarditis and congestive heart failure), and slight TnI elevations occur in patients with other conditions, including sepsis, renal failure, acidosis, acute neurological disease, and persistent tachyarrhythmia.[id number] 12:26:00 Test Item Value Reference Range Interpretation Comments PHOSPHORUS (BEAKER) (test code = 3.1 mg/dL 2.3-4.7 604) [id number] 12:26:00 Test Item Value Reference Range Interpretation Comments MAGNESIUM (BEAKER) (test code = 2.0 mg/dL 1.6-2.6 627) [id number] 12:26:00 Test Item Value Reference Range Interpretation Comments LIPASE (BEAKER) (test code = 749) 5 U/L 8-78 L [id number] 11:55:00 Test Item Value Reference Range Interpretation Comments PARTIAL THROMBOPLASTIN TIME 27.7 seconds 22.5-36.0 (BEAKER) (test code = 760) PROTHROMBIN [id number] 11:54:00 Test Item Value Reference Range Interpretation Comments PROTIME (BEAKER) (test code = 13.8 seconds 11.7-14.7 759) INR (BEAKER) (test code = 370) 1.1 <=5.9 RECOMMENDED COUMADIN/WARFARIN INR THERAPY RANGESSTANDARD DOSE: 2.0 - 3.0 Includes: PROPHYLAXIS forvenous thrombosis, systemic embolization; TREATMENT for venous thrombosis and/or pulmonary embolus.HIGH RISK: Target INR is 2.5-3.5 for patients with mechanical heart valves.OXYGEN SATURATION, [id number] 11:34:00 Test Item Value Reference Range Interpretation Comments O2 SATURATION (MEASURED) (BEAKER) 82.3 % (test code = 1455) If patient has internal jugular ( IJ) or subclavian central line or PICC line. Draw from distal port. Label as central venous oxygen.POCT-LACTIC ACID, VENOUS 2018-06-16 11:01:00 Test Item Value Reference Range Interpretation Comments POC-LACTIC ACID, 0.7 mmol/L 0.9-1.7 L TESTED AT [facility] 6720 VENOUS (BEAKER) (test [facility] [place] code = 2805) [address] BASIC METABOLIC [id number] 10:57:00 Test Item Value Reference Range Interpretation Comments SODIUM (BEAKER) 138 meq/L 136-145 (test code = 381) POTASSIUM (BEAKER) 3.9 meq/L 3.5-5.1 (test code = 379) CHLORIDE (BEAKER) 107 meq/L 98-107 (test code = 382) CO2 (BEAKER) (test 25 meq/L 22-29 code = 355) BLOOD UREA NITROGEN 11 mg/dL 7-21 (BEAKER) (test code = 354) CREATININE (BEAKER) 0.62 mg/dL 0.57-1.25 (test code = 358) GLUCOSE RANDOM 104 mg/dL 70-105 (BEAKER) (test code = 652) CALCIUM (BEAKER) 8.7 mg/dL 8.4-10.2 (test code = 697) EGFR (BEAKER) (test mL/min/1.73 INSUFFIC IENT CLINICAL code = 1092) sq m DATA TO CALCULA TE ESTIMATED GFR. [id number] 10:15:00 Test Item Value Reference Range Interpretation Comments LIPASE (BEAKER) (test code = 749) 5 U/L 8-78 L [id number] 10:15:00 Test Item Value Reference Range Interpretation Comments AMYLASE (BEAKER) (test code = 349) 145 U/L 25-125 H HEPATIC FUNCTION [id number] 10:15:00 Test Item Value Reference Range Interpretation Comments TOTAL PROTEIN (BEAKER) (test code = 7.3 gm/dL 6.0-8.3 770) ALBUMIN (BEAKER) (test code = 1145) 4.0 g/dL 3.5-5.0 BILIRUBIN TOTAL (BEAKER) (test code 0.3 mg/dL 0.2-1.2 = 377) BILIRUBIN DIRECT (BEAKER) (test 0.2 mg/dL 0.1-0.5 code = 706) ALKALINE PHOSPHATASE (BEAKER) (test 66 U/L 40-150 code = 346) AST (SGOT) (BEAKER) (test code = 15 U/L 5-34 353) ALT (SGPT) (BEAKER) (test code = 18 U/L 6-55 347) RAD, ABDOMEN SERIES W/ UPRIGHT PA [id number] 09:51:00Reason for exam:- >abdominal painIs the patient ?->UnknownShould this be performed at the bedside?->NoFINAL REPORT RAD, ABDOMEN SERIES W/ UPRIGHT PA CHEST CLINICAL INDICATION: abdominal pain COMPARISON: None FINDINGS: An upright view the chest and upright and supine views of the abdomen. Frontal view of the chest reveals no free subdiaphragmatic air. There is no focal consolidation. The costophrenic sulci are clear. Mediastinal contours are unremarkable. There is no bowel dilation. Moderate stool burden. IMPRESSION: Nonobstructed bowel gas pattern. Moderate stool burden mayreflect constipation. Unremarkable frontal view of the chest. Signed: JR Blum Robert MDRepo rt Verified Date/Time: 06/16/2018 09:51:35 Reading Location: [facility] Radiology Reading Room URINALYSIS W/ [id number] 09:09:00 Test Item Value Reference Range Interpretation Comments COLOR (BEAKER) (test code Yellow = 470) CLARITY (BEAKER) (test Clear code = 469) SPECIFIC GRAVITY UA 1.028 1.001-1.035 (BEAKER) (test code = 468) PH UA (BEAKER) (test code 6.0 5.0-8.0 = 467) PROTEIN UA (BEAKER) (test 20 mg/dL Negative A code = 464) GLUCOSE UA (BEAKER) (test Negative Negative code = 365) KETONES UA (BEAKER) (test Negative Negative code = 371) BILIRUBIN UA (BEAKER) Negative Negative (test code = 462) BLOOD UA (BEAKER) (test Negative Negative code = 461) NITRITE UA (BEAKER) (test Negative Negative code = 465) LEUKOCYTE ESTERASE UA Negative Negative (BEAKER) (test code = 466) UROBILINOGEN UA (BEAKER) 0.2 mg/dL 0.2-1.0 (test code = 463) RBC UA (BEAKER) (test code < /HPF = 519) WBC UA (BEAKER) (test code < /HPF = 520) MUCUS (BEAKER) (test code Few = 1574) SQUAMOUS EPITHELIAL < /HPF (BEAKER) (test code = 516) SOURCE(BEAKER) (test code Urine, Clean Catch = 2795) SCREEN, [id number] 09:09:00 Test Item Value Reference Range Interpretation Comments TEST URINE (BEAKER) (test Negative code = 583) U/S, ABDOMINAL, [id number] 08:09:00Abdomen limited area? Add comment if clarification is needed.->Gall BladderReason for exam:->abdo painShould this be performed at the bedside?->NoFINAL REPORT Ultrasound of the Right Upper Quadrant of the Abdomen Clinical History: abdo pain Discussion: Sonographic evaluation of the right upper quadrant of the abdomen is performed. Comparison is made with ultrasound dated January 24, 2018 Liver: 13.6 cm in length at theright midclavicular line. Normal echogenicity. No lesion is identified by ultrasound. Main portal vein diameter 0.7 cm. Biliary tree: Common duct 5 mm. Previously noted stent is no longer identified. No intrahepatic biliary dilatation. Gallbladder: Removed. Pancreas: Partially visualized, unremarkable. Ascites: None seen. Right kidney: 10.5 x 4.8 x 4.7 cm. Normal cortical echogenicity. [place]. No shadowing calculus. No hydronephrosis. IVC/Aorta: Segments partially seen. Several hypoechoic nodular foci are seen in the abdomen. While they may represent fluid-filled bowel (no peristalsis identified), adenopathy is another consideration. Impression: Several hypoechoic nodular foci arepresent in the abdomen. While they may represent fluid-filled bowel, adenopathy is also a possibility. Suggest CT correlation when clinically appropriate. Status post cholecystectomy. Signed: Abhishek Ervineport Verified Date/Time: 06/16/2018 08:09:11 Reading Location: [address] Ultrasound Reading Room CBC W/PLT COUNT & AUTO [id number] 07:43:00 Test Item Value Reference Range Interpretation Comments WHITE BLOOD CELL COUNT (BEAKER) 12.8 K/ L 3.5-10.5 H (test code = 775) RED BLOOD CELL COUNT (BEAKER) 4.87 M/ L 3.93-5.22 (test code = 761) HEMOGLOBIN (BEAKER) (test code = 12.8 GM/DL 11.2-15.7 410) HEMATOCRIT (BEAKER) (test code = 41.2 % 34.1-44.9 411) MEAN CORPUSCULAR VOLUME (BEAKER) 84.6 fL 79.4-94.8 (test code = 753) MEAN CORPUSCULAR HEMOGLOBIN 26.3 pg 25.6-32.2 (BEAKER) (test code = 751) MEAN CORPUSCULAR HEMOGLOBIN CONC 31.1 GM/DL 32.2-35.5 L (BEAKER) (test code = 752) RED CELL DISTRIBUTION WIDTH 18.5 % 11.7-14.4 H (BEAKER) (test code = 412) PLATELET COUNT (BEAKER) (test 265 K/CU MM 150-450 code = 756) MEAN PLATELET VOLUME (BEAKER) 10.4 fL 9.4-12.3 (test code = 754) NUCLEATED RED BLOOD CELLS 0 /100 WBC 0-0 (BEAKER) (test code = 413) NEUTROPHILS RELATIVE PERCENT 80 % (BEAKER) (test code = 429) LYMPHOCYTES RELATIVE PERCENT 12 % (BEAKER) (test code = 430) MONOCYTES RELATIVE PERCENT 6 % (BEAKER) (test code = 431) EOSINOPHILS RELATIVE PERCENT 1 % (BEAKER) (test code = 432) BASOPHILS RELATIVE PERCENT 1 % (BEAKER) (test code = 437) NEUTROPHILS ABSOLUTE COUNT 10.24 K/ L 1.56-6.13 H (BEAKER) (test code = 670) LYMPHOCYTES ABSOLUTE COUNT 1.50 K/ L 1.18-3.74 (BEAKER) (test code = 414) MONOCYTES ABSOLUTE COUNT (BEAKER) 0.71 K/ L 0.24-0.36 H (test code = 415) EOSINOPHILS ABSOLUTE COUNT 0.18 K/ L 0.04-0.36 (BEAKER) (test code = 416) BASOPHILS ABSOLUTE COUNT (BEAKER) 0.10 K/ L 0.01-0.08 H (test code = 417) IMMATURE GRANULOCYTES-RELATIVE 1 % 0-1 PERCENT (BEAKER) (test code = 2801) BLOOD [id number] 00:00:00 Test Item Value Reference Range Interpretation Comments CULTURE (BEAKER) (test No growth in 5 days code = 1095) BLOOD [id number] 00:00:00 Test Item Value Reference Range Interpretation Comments CULTURE (BEAKER) (test No growth in 5 days code = 1095) IN, [id number] 16:00:00INTRA OP IMAGINGReason for exam:->BILE DUCT DISEASEFINAL REPORT INDICATION: Bile duct disease COMPARISON: 11/10/2017 IMPRESSION: 9 fluoroscopic images obtained during ERCP performed by another physician (NOT the undersigned radiologist) were provided for postprocedural interpretation. Intraoperative consultation with the radiologist was not requested. The common bile duct is dilated. A balloon sweep was performed. There are nonspecific filling defects in the common bile duct. There is egress of contrast into the duodenum. Fluoroscopy was not performed by the undersigned radiologist. Provided fluoroscopy time: 98.2 seconds, 9 images Signed: Linda Simonort Verified Date/Time: 01/27/2018 16:00:09 Reading Location: [facility] C0[facility] Consult Reading [facility] METABOLIC [id number] 05:15:00 Test Item Value Reference Range Interpretation Comments SODIUM (BEAKER) 137 meq/L 136-145 (test code = 381) POTASSIUM (BEAKER) 3.4 meq/L 3.5-5.1 L (test code = 379) CHLORIDE (BEAKER) 109 meq/L 98-107 H (test code = 382) CO2 (BEAKER) (test 20 meq/L 22-29 L code = 355) BLOOD UREA NITROGEN 7 mg/dL 7-21 (BEAKER) (test code = 354) CREATININE (BEAKER) 0.61 mg/dL 0.57-1.25 (test code = 358) GLUCOSE RANDOM 87 mg/dL 70-105 (BEAKER) (test code = 652) CALCIUM (BEAKER) 8.3 mg/dL 8.4-10.2 L (test code = 697) EGFR (BEAKER) (test mL/min/1.73 INSUFFIC IENT CLINICAL code = 1092) sq m DATA TO CALCULA TE ESTIMATED GFR. HEPATIC FUNCTION [id number] 05:12:00 Test Item Value Reference Range Interpretation Comments TOTAL PROTEIN (BEAKER) (test code = 6.0 gm/dL 6.0-8.3 770) ALBUMIN (BEAKER) (test code = 1145) 3.4 g/dL 3.5-5.0 L BILIRUBIN TOTAL (BEAKER) (test code 0.3 mg/dL 0.2-1.2 = 377) BILIRUBIN DIRECT (BEAKER) (test 0.1 mg/dL 0.1-0.5 code = 706) ALKALINE PHOSPHATASE (BEAKER) (test 60 U/L 40-150 code = 346) AST (SGOT) (BEAKER) (test code = 10 U/L 5-34 353) ALT (SGPT) (BEAKER) (test code = 7 U/L 6-55 347) PROTHROMBIN [id number] 05:06:00 Test Item Value Reference Range Interpretation Comments PROTIME (BEAKER) (test code = 15.7 seconds 11.7-14.7 H 759) INR (BEAKER) (test code = 370) 1.3 <=5.9 RECOMMENDED COUMADIN/WARFARIN INR THERAPY RANGESSTANDARD DOSE: 2.0 - 3.0 Includes: PROPHYLAXIS forvenous thrombosis, systemic embolization; TREATMENT for venous thrombosis and/or pulmonary embolus.HIGH RISK: Target INR is 2.5-3.5 for patients with mechanical heart valves.CBC W/PLT COUNT & AUTO DIFFERENTIAL 2018-01-26 04:40:00 Test Item Value Reference Range Interpretation Comments WHITE BLOOD CELL COUNT (BEAKER) 8.5 K/ L 3.5-10.5 (test code = 775) RED BLOOD CELL COUNT (BEAKER) 3.52 M/ L 3.93-5.22 L (test code = 761) HEMOGLOBIN (BEAKER) (test code = 8.8 GM/DL 11.2-15.7 L 410) HEMATOCRIT (BEAKER) (test code = 28.1 % 34.1-44.9 L 411) MEAN CORPUSCULAR VOLUME (BEAKER) 79.8 fL 79.4-94.8 (test code = 753) MEAN CORPUSCULAR HEMOGLOBIN 25.0 pg 25.6-32.2 L (BEAKER) (test code = 751) MEAN CORPUSCULAR HEMOGLOBIN CONC 31.3 GM/DL 32.2-35.5 L (BEAKER) (test code = 752) RED CELL DISTRIBUTION WIDTH 18.3 % 11.7-14.4 H (BEAKER) (test code = 412) PLATELET COUNT (BEAKER) (test 216 K/CU MM 150-450 code = 756) MEAN PLATELET VOLUME (BEAKER) 10.9 fL 9.4-12.3 (test code = 754) NUCLEATED RED BLOOD CELLS 0 /100 WBC 0-0 (BEAKER) (test code = 413) NEUTROPHILS RELATIVE PERCENT 67 % (BEAKER) (test code = 429) LYMPHOCYTES RELATIVE PERCENT 26 % (BEAKER) (test code = 430) MONOCYTES RELATIVE PERCENT 4 % (BEAKER) (test code = 431) EOSINOPHILS RELATIVE PERCENT 2 % (BEAKER) (test code = 432) BASOPHILS RELATIVE PERCENT 1 % (BEAKER) (test code = 437) NEUTROPHILS ABSOLUTE COUNT 5.73 K/ L 1.56-6.13 (BEAKER) (test code = 670) LYMPHOCYTES ABSOLUTE COUNT 2.21 K/ L 1.18-3.74 (BEAKER) (test code = 414) MONOCYTES ABSOLUTE COUNT (BEAKER) 0.36 K/ L 0.24-0.36 (test code = 415) EOSINOPHILS ABSOLUTE COUNT 0.14 K/ L 0.04-0.36 (BEAKER) (test code = 416) BASOPHILS ABSOLUTE COUNT (BEAKER) 0.04 K/ L 0.01-0.08 (test code = 417) IMMATURE GRANULOCYTES-RELATIVE 0 % 0-1 PERCENT (BEAKER) (test code = 2801) LACTIC ACID, VENOUS, WHOLE [id number] 18:27:00 Test Item Value Reference Range Interpretation Comments LACTATE BLOOD VENOUS 1.2 mmol/L 0.5-2.2 Specime n slightly (2) (BEAKER) (test hemolyzed code = 2872) Effective 10/15/2015: Units/Reference Range ChangeNew: 0.5-2.2 mmol/L Previous: 5-20 mg/dLLACTIC ACID, VENOUS, WHOLE [id number] 13:30:00 Test Item Value Reference Range Interpretation Comments LACTATE BLOOD VENOUS (2) (BEAKER) 1.4 mmol/L 0.5-2.2 (test code = 2872) Effective 10/15/2015: Units/Reference Range ChangeNew: 0.5-2.2 mmol/L Previous: 5-20 mg/dLRAPID DRUG SCREEN, [id number] 09:48:00 Test Item Value Reference Range Interpretation Comments BARBITURATE URINE (BEAKER) (test Negative Negative code = 725) BENZODIAZEPINE SCREEN URINE (BEAKER) Negative Negative (test code = 726) COCAINE (METAB.) SCREEN (BEAKER) Negative Negative (test code = 1164) METHADONE SCREEN (BEAKER) (test code Negative Negative = 1436) OPIATE SCREEN URINE (BEAKER) (test Positive Negative A code = 734) CANNABINOID SCREEN URINE (BEAKER) Positive Negative A (test code = 727) AMPH/METHAMPH SCREEN (BEAKER) (test Negative Negative code = 1438) PHENCYCLIDINE SCREEN URINE (BEAKER) Negative Negative (test code = 608) OXYCODONE SCREEN URINE (BEAKER) Negative Negative (test code = 2761) DRUG CUTOFF CONC.Cocaine 300 ng/mL Cannabinoid 50 ng/mL Benzodiazepine 200 ng/mLBarbiturate 200 ng/mLPhencyclidine 25 ng/mLOpiate 300 ng/mLMethadone 300 ng/mLAmphetamine/ 1000 ng/mL MethamphetamineOxycodone 300 ng/mLThis assay provides an unconfirmed qualitative test result for the clinical management of patients in emergency situations. Chain of custody not maintained. Some uzeq-mdk-krgjmva medications, as well as adulterants, may cause inaccurate results. Clinical correlation should be applied. A more comprehensive drug screen or confirmation of a detected drug may be performed upon request. RAD, CHEST, 1 VIEW, NON [id number] 08:24:00Reason for exam:->chest painShould this be performed at the bedside?->YesFINAL REPORT Chest one view INDICATION: Chest pain COMPARISON: None available IMPRESSION: There is no focal consolidation, vascular congestion, pleural effusion, or pneumothorax.Cardiac silhouette prominence is magnified by technique. Mediastinal contours are unremarkable. There are incidental nipple piercings. The bones appear intact. Signed: Linda Simon MDReport Veri fied Date/Time: 01/25/2018 08:24:36 Reading Location: [facility] Radiology Reading Room BASIC METABOLIC [id number] 02:56:00 Test Item Value Reference Range Interpretation Comments SODIUM (BEAKER) 138 meq/L 136-145 (test code = 381) POTASSIUM (BEAKER) 3.6 meq/L 3.5-5.1 (test code = 379) CHLORIDE (BEAKER) 109 meq/L 98-107 H (test code = 382) CO2 (BEAKER) (test 20 meq/L 22-29 L code = 355) BLOOD UREA NITROGEN 15 mg/dL 7-21 (BEAKER) (test code = 354) CREATININE (BEAKER) 0.63 mg/dL 0.57-1.25 (test code = 358) GLUCOSE RANDOM 98 mg/dL 70-105 (BEAKER) (test code = 652) CALCIUM (BEAKER) 8.9 mg/dL 8.4-10.2 (test code = 697) EGFR (BEAKER) (test mL/min/1.73 INSUFFIC IENT CLINICAL code = 1092) sq m DATA TO CALCULA TE ESTIMATED GFR. HEPATIC FUNCTION [id number] 02:52:00 Test Item Value Reference Range Interpretation Comments TOTAL PROTEIN (BEAKER) (test code = 7.1 gm/dL 6.0-8.3 770) ALBUMIN (BEAKER) (test code = 1145) 3.9 g/dL 3.5-5.0 BILIRUBIN TOTAL (BEAKER) (test code 0.2 mg/dL 0.2-1.2 = 377) BILIRUBIN DIRECT (BEAKER) (test 0.1 mg/dL 0.1-0.5 code = 706) ALKALINE PHOSPHATASE (BEAKER) (test 73 U/L 40-150 code = 346) AST (SGOT) (BEAKER) (test code = 11 U/L 5-34 353) ALT (SGPT) (BEAKER) (test code = 7 U/L 6-55 347) PROTHROMBIN [id number] 02:40:00 Test Item Value Reference Range Interpretation Comments PROTIME (BEAKER) (test code = 15.2 seconds 11.7-14.7 H 759) INR (BEAKER) (test code = 370) 1.2 <=5.9 RECOMMENDED COUMADIN/WARFARIN INR THERAPY RANGESSTANDARD DOSE: 2.0 - 3.0 Includes: PROPHYLAXIS forvenous thrombosis, systemic embolization; TREATMENT for venous thrombosis and/or pulmonary embolus.HIGH RISK: Target INR is 2.5-3.5 for patients with mechanical heart valves.CBC W/PLT COUNT & AUTO DIFFERENTIAL 2018-01-25 02:31:00 Test Item Value Reference Range Interpretation Comments WHITE BLOOD CELL COUNT (BEAKER) 8.4 K/ L 3.5-10.5 (test code = 775) RED BLOOD CELL COUNT (BEAKER) 3.89 M/ L 3.93-5.22 L (test code = 761) HEMOGLOBIN (BEAKER) (test code = 9.8 GM/DL 11.2-15.7 L 410) HEMATOCRIT (BEAKER) (test code = 31.0 % 34.1-44.9 L 411) MEAN CORPUSCULAR VOLUME (BEAKER) 79.7 fL 79.4-94.8 (test code = 753) MEAN CORPUSCULAR HEMOGLOBIN 25.2 pg 25.6-32.2 L (BEAKER) (test code = 751) MEAN CORPUSCULAR HEMOGLOBIN CONC 31.6 GM/DL 32.2-35.5 L (BEAKER) (test code = 752) RED CELL DISTRIBUTION WIDTH 18.4 % 11.7-14.4 H (BEAKER) (test code = 412) PLATELET COUNT (BEAKER) (test 232 K/CU MM 150-450 code = 756) MEAN PLATELET VOLUME (BEAKER) 11.0 fL 9.4-12.3 (test code = 754) NUCLEATED RED BLOOD CELLS 0 /100 WBC 0-0 (BEAKER) (test code = 413) NEUTROPHILS RELATIVE PERCENT 51 % (BEAKER) (test code = 429) LYMPHOCYTES RELATIVE PERCENT 39 % (BEAKER) (test code = 430) MONOCYTES RELATIVE PERCENT 6 % (BEAKER) (test code = 431) EOSINOPHILS RELATIVE PERCENT 3 % (BEAKER) (test code = 432) BASOPHILS RELATIVE PERCENT 1 % (BEAKER) (test code = 437) NEUTROPHILS ABSOLUTE COUNT 4.25 K/ L 1.56-6.13 (BEAKER) (test code = 670) LYMPHOCYTES ABSOLUTE COUNT 3.26 K/ L 1.18-3.74 (BEAKER) (test code = 414) MONOCYTES ABSOLUTE COUNT (BEAKER) 0.50 K/ L 0.24-0.36 H (test code = 415) EOSINOPHILS ABSOLUTE COUNT 0.27 K/ L 0.04-0.36 (BEAKER) (test code = 416) BASOPHILS ABSOLUTE COUNT (BEAKER) 0.08 K/ L 0.01-0.08 (test code = 417) IMMATURE GRANULOCYTES-RELATIVE 0 % 0-1 PERCENT (BEAKER) (test code = 2801) U/S, ABDOMINAL, [id number] 19:33:00Reason for exam:->ABDOMINAL PAIN FINAL REPORT Ultrasound of the abdomen. Clinical History: ABDOMINAL PAIN. Comparison study: CT scan dated December 09, 2017. Findings: The liver is normal in echotexture with no focal masses. It measures 15.7 cm in length. A stent is seen in the CBD with the CBD measuring 9 mm, dilated. The main portal vein diameter is 0.8 cm. The gallbladder is absent. The spleen measures 9.8 cm and is unremarkable. The pancreas is within normal limits. No ascites is present. The right kidney measures 12.0 cm and left kidney measures 12.0 cm, both within normal limits. The proximal aorta and IVC are unremarkable. No pleural effusions are seen. Impression: 1. Status post cholecystectomy.2. Stent in the CBD with the CBD dilated measuring 9 mm. This could be assessed with MRCP as clinically indicated. Signed: Dinesh Cunningham MDReport Verified Date/Time: 01/24/2018 19:33:46 Reading Location: [address] Consult Reading Room C METABOLIC [id number] 18:46:00 Test Item Value Reference Range Interpretation Comments SODIUM (BEAKER) 138 meq/L 136-145 (test code = 381) POTASSIUM (BEAKER) 3.6 meq/L 3.5-5.1 (test code = 379) CHLORIDE (BEAKER) 108 meq/L 98-107 H (test code = 382) CO2 (BEAKER) (test 23 meq/L 22-29 code = 355) BLOOD UREA NITROGEN 16 mg/dL 7-21 (BEAKER) (test code = 354) CREATININE (BEAKER) 0.65 mg/dL 0.57-1.25 (test code = 358) GLUCOSE RANDOM 70 mg/dL 70-105 (BEAKER) (test code = 652) CALCIUM (BEAKER) 9.1 mg/dL 8.4-10.2 (test code = 697) EGFR (BEAKER) (test mL/min/1.73 INSUFFIC IENT CLINICAL code = 1092) sq m DATA TO CALCULA TE ESTIMATED GFR. [id number] 18:45:00 Test Item Value Reference Range Interpretation Comments LIPASE (BEAKER) (test code = 749) 15 U/L 8-78 [id number] 18:45:00 Test Item Value Reference Range Interpretation Comments AMYLASE (BEAKER) (test code = 349) 44 U/L 25-125 HEPATIC FUNCTION [id number] 18:45:00 Test Item Value Reference Range Interpretation Comments TOTAL PROTEIN (BEAKER) (test code = 7.6 gm/dL 6.0-8.3 770) ALBUMIN (BEAKER) (test code = 1145) 4.2 g/dL 3.5-5.0 BILIRUBIN TOTAL (BEAKER) (test code 0.3 mg/dL 0.2-1.2 = 377) BILIRUBIN DIRECT (BEAKER) (test 0.1 mg/dL 0.1-0.5 code = 706) ALKALINE PHOSPHATASE (BEAKER) (test 79 U/L 40-150 code = 346) AST (SGOT) (BEAKER) (test code = 10 U/L 5-34 353) ALT (SGPT) (BEAKER) (test code = 8 U/L 6-55 347) Specimen slightly lipemicURINALYSIS W/ [id number] 18:41:00 Test Item Value Reference Range Interpretation Comments COLOR (BEAKER) (test code Yellow = 470) CLARITY (BEAKER) (test Clear code = 469) SPECIFIC GRAVITY UA 1.027 1.001-1.035 (BEAKER) (test code = 468) PH UA (BEAKER) (test code 5.5 5.0-8.0 = 467) PROTEIN UA (BEAKER) (test 20 mg/dL Negative A code = 464) GLUCOSE UA (BEAKER) (test Negative Negative code = 365) KETONES UA (BEAKER) (test Negative Negative code = 371) BILIRUBIN UA (BEAKER) Negative Negative (test code = 462) BLOOD UA (BEAKER) (test Negative Negative code = 461) NITRITE UA (BEAKER) (test Negative Negative code = 465) LEUKOCYTE ESTERASE UA Negative Negative (BEAKER) (test code = 466) UROBILINOGEN UA (BEAKER) 3.0 mg/dL 0.2-1.0 H (test code = 463) RBC UA (BEAKER) (test code 1 /HPF = 519) WBC UA (BEAKER) (test code 1 /HPF = 520) MUCUS (BEAKER) (test code Many = 1574) SQUAMOUS EPITHELIAL 4 /HPF (BEAKER) (test code = 516) SOURCE(BEAKER) (test code Urine, Clean Catch = 2295) SCREEN, [id number] 18:36:00 Test Item Value Reference Range Interpretation Comments TEST URINE (BEAKER) (test Negative code = 583) CBC W/PLT COUNT & AUTO [id number] 18:18:00 Test Item Value Reference Range Interpretation Comments WHITE BLOOD CELL COUNT (BEAKER) 8.0 K/ L 3.5-10.5 (test code = 775) RED BLOOD CELL COUNT (BEAKER) 4.40 M/ L 3.93-5.22 (test code = 761) HEMOGLOBIN (BEAKER) (test code = 11.2 GM/DL 11.2-15.7 410) HEMATOCRIT (BEAKER) (test code = 35.3 % 34.1-44.9 411) MEAN CORPUSCULAR VOLUME (BEAKER) 80.2 fL 79.4-94.8 (test code = 753) MEAN CORPUSCULAR HEMOGLOBIN 25.5 pg 25.6-32.2 L (BEAKER) (test code = 751) MEAN CORPUSCULAR HEMOGLOBIN CONC 31.7 GM/DL 32.2-35.5 L (BEAKER) (test code = 752) RED CELL DISTRIBUTION WIDTH 18.6 % 11.7-14.4 H (BEAKER) (test code = 412) PLATELET COUNT (BEAKER) (test 252 K/CU MM 150-450 code = 756) MEAN PLATELET VOLUME (BEAKER) 10.5 fL 9.4-12.3 (test code = 754) NUCLEATED RED BLOOD CELLS 0 /100 WBC 0-0 (BEAKER) (test code = 413) NEUTROPHILS RELATIVE PERCENT 64 % (BEAKER) (test code = 429) LYMPHOCYTES RELATIVE PERCENT 27 % (BEAKER) (test code = 430) MONOCYTES RELATIVE PERCENT 6 % (BEAKER) (test code = 431) EOSINOPHILS RELATIVE PERCENT 2 % (BEAKER) (test code = 432) BASOPHILS RELATIVE PERCENT 1 % (BEAKER) (test code = 437) NEUTROPHILS ABSOLUTE COUNT 5.11 K/ L 1.56-6.13 (BEAKER) (test code = 670) LYMPHOCYTES ABSOLUTE COUNT 2.17 K/ L 1.18-3.74 (BEAKER) (test code = 414) MONOCYTES ABSOLUTE COUNT (BEAKER) 0.45 K/ L 0.24-0.36 H (test code = 415) EOSINOPHILS ABSOLUTE COUNT 0.19 K/ L 0.04-0.36 (BEAKER) (test code = 416) BASOPHILS ABSOLUTE COUNT (BEAKER) 0.08 K/ L 0.01-0.08 (test code = 417) IMMATURE GRANULOCYTES-RELATIVE 0 % 0-1 PERCENT (BEAKER) (test code = 2801) CT, [id number] 18:39:00Reason for exam:->ABDOMINAL PAINIs the patient ?->UnknownWhat is the patient's sedation requirement?->No Sedation FINAL REPORT History: Generalized abdominal pain. TECHNIQUE: Helical CT of the abdomen and pelvis were performed following the uneventful administration of intravenous contrast utilizing multiple windows, sagittal and coronal reformations. FINDINGS: No comparisons. Abdominal CT:The solid abdominal organs including the liver, spleen, [...] rectum, uterus, urinary bladder and visible portions ofthe bowel are unremarkable. There are no pelvic fluid collections or pathologic adenopathy. Vessels and bones are unremarkable. Several pelvic phleboliths are noted. IMPRESSION: 1. Common bile duct endoscopic stent and mild pneumobilia. Gallbladder is absent consistent with cholecystectomy. 2. Otherwise, unremarkable CT of the abdomen and pelvis. Signed: Cassie Frostort Verified Date/Time: 12/09/2017 18:39:14 Reading Location: [facility] [place] Diagnostic Imaging Reading Room - [address] signed by: CASSIE FROST M.D. on 12/09/2017 06:39 PMCOMPREHENSIVE METABOLIC [id number] 16:59:00 Test Item Value Reference Range Interpretation Comments TOTAL PROTEIN 7.2 gm/dL 6.0-8.3 (BEAKER) (test code = 770) ALBUMIN (BEAKER) 4.1 g/dL 3.5-5.0 (test code = 1145) ALKALINE PHOSPHATASE 77 U/L 40-150 (BEAKER) (test code = 346) BILIRUBIN TOTAL 0.5 mg/dL 0.2-1.2 (BEAKER) (test code = 377) SODIUM (BEAKER) 139 meq/L 136-145 (test code = 381) POTASSIUM (BEAKER) 3.0 meq/L 3.5-5.1 L (test code = 379) CHLORIDE (BEAKER) 107 meq/L 98-107 (test code = 382) CO2 (BEAKER) (test 26 meq/L 22-29 code = 355) BLOOD UREA NITROGEN 15 mg/dL 7-21 (BEAKER) (test code = 354) CREATININE (BEAKER) 0.67 mg/dL 0.57-1.25 (test code = 358) GLUCOSE RANDOM 86 mg/dL 70-105 (BEAKER) (test code = 652) CALCIUM (BEAKER) 9.1 mg/dL 8.4-10.2 (test code = 697) AST (SGOT) (BEAKER) 11 U/L 5-34 (test code = 353) ALT (SGPT) (BEAKER) 7 U/L 6-55 (test code = 347) EGFR (BEAKER) (test mL/min/1.73 INSUFFIC IENT code = 1092) sq m CLINICAL DATA T O CALCULATE ESTIM ATED GFR. SCREEN, [id number] 16:57:00 Test Item Value Reference Range Interpretation Comments TEST URINE (BEAKER) (test Negative code = 583) URINALYSIS W/ [id number] 16:52:00 Test Item Value Reference Range Interpretation Comments COLOR (BEAKER) (test code = 470) Yellow CLARITY (BEAKER) (test code = 469) Hazy SPECIFIC GRAVITY UA (BEAKER) (test 1.031 1.001-1.035 code = 468) PH UA (BEAKER) (test code = 467) 6.0 5.0-8.0 PROTEIN UA (BEAKER) (test code = 30 mg/dL Negative A 464) GLUCOSE UA (BEAKER) (test code = Negative Negative 365) KETONES UA (BEAKER) (test code = Negative Negative 371) BILIRUBIN UA (BEAKER) (test code = Negative Negative 462) BLOOD UA (BEAKER) (test code = 461) Small Negative A NITRITE UA (BEAKER) (test code = Negative Negative 465) LEUKOCYTE ESTERASE UA (BEAKER) Moderate Negative A (test code = 466) UROBILINOGEN UA (BEAKER) (test code 2.0 mg/dL 0.2-1.0 H = 463) RBC UA (BEAKER) (test code = 519) 0 /HPF WBC UA (BEAKER) (test code = 520) 5 /HPF MUCUS (BEAKER) (test code = 1574) Many SQUAMOUS EPITHELIAL (BEAKER) (test 6 /HPF code = 516) HYALINE CASTS (BEAKER) (test code = 6 /LPF 514) SOURCE(BEAKER) (test code = 2795) [id number] 16:48:00 Test Item Value Reference Range Interpretation Comments LIPASE (BEAKER) (test code = 749) 9 U/L 8-78 [id number] 16:32:00 Test Item Value Reference Range Interpretation Comments PROTIME (BEAKER) (test code = 15.6 seconds 11.7-14.7 H 759) INR (BEAKER) (test code = 370) 1.2 <=5.9 PARTIAL THROMBOPLASTIN TIME 29.2 seconds 22.5-36.0 (BEAKER) (test code = 760) RECOMMENDED COUMADIN/WARFARIN INR THERAPY RANGESSTANDARD DOSE: 2.0 - 3.0 Includes: PROPHYLAXIS forvenous thrombosis, systemic embolization; TREATMENT for venous thrombosis and/or pulmonary embolus.HIGH RISK: Target INR is 2.5-3.5 for patients with mechanical heart valves.CBC W/PLT COUNT & AUTO DIFFERENTIAL 2017-12-09 16:23:00 Test Item Value Reference Range Interpretation Comments WHITE BLOOD CELL COUNT (BEAKER) 7.5 K/ L 3.5-10.5 (test code = 775) RED BLOOD CELL COUNT (BEAKER) 3.97 M/ L 3.93-5.22 (test code = 761) HEMOGLOBIN (BEAKER) (test code = 9.6 GM/DL 11.2-15.7 L 410) HEMATOCRIT (BEAKER) (test code = 30.9 % 34.1-44.9 L 411) MEAN CORPUSCULAR VOLUME (BEAKER) 77.8 fL 79.4-94.8 L (test code = 753) MEAN CORPUSCULAR HEMOGLOBIN 24.2 pg 25.6-32.2 L (BEAKER) (test code = 751) MEAN CORPUSCULAR HEMOGLOBIN CONC 31.1 GM/DL 32.2-35.5 L (BEAKER) (test code = 752) RED CELL DISTRIBUTION WIDTH 19.2 % 11.7-14.4 H (BEAKER) (test code = 412) PLATELET COUNT (BEAKER) (test 201 K/CU MM 150-450 code = 756) MEAN PLATELET VOLUME (BEAKER) 10.5 fL 9.4-12.3 (test code = 754) NUCLEATED RED BLOOD CELLS 0 /100 WBC 0-0 (BEAKER) (test code = 413) NEUTROPHILS RELATIVE PERCENT 64 % (BEAKER) (test code = 429) LYMPHOCYTES RELATIVE PERCENT 27 % (BEAKER) (test code = 430) MONOCYTES RELATIVE PERCENT 6 % (BEAKER) (test code = 431) EOSINOPHILS RELATIVE PERCENT 2 % (BEAKER) (test code = 432) BASOPHILS RELATIVE PERCENT 1 % (BEAKER) (test code = 437) NEUTROPHILS ABSOLUTE COUNT 4.81 K/ L 1.56-6.13 (BEAKER) (test code = 670) LYMPHOCYTES ABSOLUTE COUNT 2.04 K/ L 1.18-3.74 (BEAKER) (test code = 414) MONOCYTES ABSOLUTE COUNT (BEAKER) 0.43 K/ L 0.24-0.36 H (test code = 415) EOSINOPHILS ABSOLUTE COUNT 0.14 K/ L 0.04-0.36 (BEAKER) (test code = 416) BASOPHILS ABSOLUTE COUNT (BEAKER) 0.06 K/ L 0.01-0.08 (test code = 417) IMMATURE GRANULOCYTES-RELATIVE 0 % 0-1 PERCENT (BEAKER) (test code = 2801) TISSUE [id number] 10:42:00Surgical Pathology Report Case: [id number] Authorizing Provider: Tawanda Farfan MD Collected: 11/11/2017 1806 Ordering Location: [facility] Received: 11/14/2017 0743 SERVICES Pathologist: Mabel Mejia MD Specimen: Gallbladder, Gallbladder and Lymph Node GALLBLADDER,LAPAROSCOPIC CHOLECYSTECTOMY: - ACUTE SEROSITIS AND PERICHOLECYSTITIS - PREDOMINANTLT CHRONIC CHOLECYSTITISIN SECTIONS EXAMINED - CHOLELITHIASIS - CYSTIC DUCT MARGIN, UNREMARKABLE - BENIGN CYSTIC LYMPH NODE - NO DYSPLASIA OR MALIGNANCY SEEN Signing Pathologist Direct Phone Line: [phone] signed by Mabel Mejia MD on 11/15/2017 at 10:42 [id number] cholecystitis Gallbladder and lymph node The specimen is received in formalin-filled container labeled with the patient's information and labeled "gallbladder". It consists of an intact gallbladder measuring 7.6 x 2.5 cm with a gallbladder wall thickness up to 0.2 cm. There is a separate omer-quinn lymph node measuring 1 x0.7 x 0.4 cm. The gallbladder lumen is filled with multiple omer smooth stones and green thick fluid.The mucosa is green and smooth with multiple areas of effacement. No masses are identified. The stones measure up to 0.6 cm.Section code: A1, margin en face with lymph node; A2, gallbladder wall. CG/ewPERFORMEDBASIC METABOLIC [id number] 07:18:00 Test Item Value Reference Range Interpretation Comments SODIUM (BEAKER) 140 meq/L 136-145 (test code = 381) POTASSIUM (BEAKER) 3.3 meq/L 3.5-5.1 L Specimen slightly (test code = 379) hemolyzed CHLORIDE (BEAKER) 108 meq/L 98-107 H (test code = 382) CO2 (BEAKER) (test 22 meq/L 22-29 code = 355) BLOOD UREA NITROGEN 2 mg/dL 7-21 L (BEAKER) (test code = 354) CREATININE (BEAKER) 0.58 mg/dL 0.57-1.25 Specimen slightly (test code = 358) hemolyzed GLUCOSE RANDOM 69 mg/dL 70-105 L (BEAKER) (test code = 652) CALCIUM (BEAKER) 8.4 mg/dL 8.4-10.2 (test code = 697) EGFR (BEAKER) (test mL/min/1.73 INSUFFIC IENT CLINICAL code = 1092) sq m DATA TO CALCULA TE ESTIMATED GFR. [id number] 07:17:00 Test Item Value Reference Range Interpretation Comments PARTIAL THROMBOPLASTIN TIME 33.3 seconds 22.5-36.0 (BEAKER) (test code = 760) PROTHROMBIN TIME/[id number] 07:16:00 Test Item Value Reference Range Interpretation Comments PROTIME (BEAKER) (test code = 16.7 seconds 11.7-14.7 H 759) INR (BEAKER) (test code = 370) 1.4 <=5.9 RECOMMENDED COUMADIN/WARFARIN INR THERAPY RANGESSTANDARD DOSE: 2.0 - 3.0 Includes: PROPHYLAXIS forvenous thrombosis, systemic embolization; TREATMENT for venous thrombosis and/or pulmonary embolus.HIGH RISK: Target INR is 2.5-3.5 for patients with mechanical heart valves.CBC (HEMOGRAM ONLY)2017-11-11 07:11:00 Test Item Value Reference Range Interpretation Comments WHITE BLOOD CELL COUNT (BEAKER) 4.8 K/ L 3.5-10.5 (test code = 775) RED BLOOD CELL COUNT (BEAKER) 3.72 M/ L 3.93-5.22 L (test code = 761) HEMOGLOBIN (BEAKER) (test code = 9.0 GM/DL 11.2-15.7 L 410) HEMATOCRIT (BEAKER) (test code = 28.3 % 34.1-44.9 L 411) MEAN CORPUSCULAR VOLUME (BEAKER) 76.1 fL 79.4-94.8 L (test code = 753) MEAN CORPUSCULAR HEMOGLOBIN 24.2 pg 25.6-32.2 L (BEAKER) (test code = 751) MEAN CORPUSCULAR HEMOGLOBIN CONC 31.8 GM/DL 32.2-35.5 L (BEAKER) (test code = 752) RED CELL DISTRIBUTION WIDTH 18.8 % 11.7-14.4 H (BEAKER) (test code = 412) PLATELET COUNT (BEAKER) (test 212 K/CU MM 150-450 code = 756) MEAN PLATELET VOLUME (BEAKER) 10.4 fL 9.4-12.3 (test code = 754) NUCLEATED RED BLOOD CELLS 0 /100 WBC 0-0 (BEAKER) (test code = 413) IN, [id number] 08:59:00Reason for exam:->CBD stonesFINAL REPORT Two fluoroscopic abdomen images during ERCP. Fluoroscopy time 178 .5 seconds. Fluoroscopy was not performed by the undersigned. Refer to procedure notes for diagnostic and therapeutic detail. Signed: Cassie Villa Verified Date/Time: 11/10/2017 08:59:33 Reading Location: [facility] Radiology Reading Room Electronically signed by: CASSIE VILLA M.D.on 11/10/2017 08:59 AMPREGNANCY SCREEN, [id number] 16:06:00 Test Item Value Reference Range Interpretation Comments TEST URINE (BEAKER) (test Negative code = 583) BASIC METABOLIC [id number] 05:31:00 Test Item Value Reference Range Interpretation Comments SODIUM (BEAKER) 141 meq/L 136-145 (test code = 381) POTASSIUM (BEAKER) 3.2 meq/L 3.5-5.1 L (test code = 379) CHLORIDE (BEAKER) 110 meq/L 98-107 H (test code = 382) CO2 (BEAKER) (test 19 meq/L 22-29 L code = 355) BLOOD UREA NITROGEN 2 mg/dL 7-21 L (BEAKER) (test code = 354) CREATININE (BEAKER) 0.73 mg/dL 0.57-1.25 (test code = 358) GLUCOSE RANDOM 85 mg/dL 70-105 (BEAKER) (test code = 652) CALCIUM (BEAKER) 9.3 mg/dL 8.4-10.2 (test code = 697) EGFR (BEAKER) (test mL/min/1.73 INSUFFIC IENT CLINICAL code = 1092) sq m DATA TO CALCULA TE ESTIMATED GFR. [id number] 05:02:00 Test Item Value Reference Range Interpretation Comments PARTIAL THROMBOPLASTIN TIME 32.0 seconds 22.5-36.0 (BEAKER) (test code = 760) PROTHROMBIN [id number] 05:01:00 Test Item Value Reference Range Interpretation Comments PROTIME (BEAKER) (test code = 15.9 seconds 11.7-14.7 H 759) INR (BEAKER) (test code = 370) 1.3 <=5.9 RECOMMENDED COUMADIN/WARFARIN INR THERAPY RANGESSTANDARD DOSE: 2.0 - 3.0 Includes: PROPHYLAXIS forvenous thrombosis, systemic embolization; TREATMENT for venous thrombosis and/or pulmonary embolus.HIGH RISK: Target INR is 2.5-3.5 for patients with mechanical heart valves.CBC (HEMOGRAM ONLY)2017-11-09 04:56:00 Test Item Value Reference Range Interpretation Comments WHITE BLOOD CELL COUNT (BEAKER) 9.6 K/ L 3.5-10.5 (test code = 775) RED BLOOD CELL COUNT (BEAKER) 4.22 M/ L 3.93-5.22 (test code = 761) HEMOGLOBIN (BEAKER) (test code = 10.2 GM/DL 11.2-15.7 L 410) HEMATOCRIT (BEAKER) (test code = 32.7 % 34.1-44.9 L 411) MEAN CORPUSCULAR VOLUME (BEAKER) 77.5 fL 79.4-94.8 L (test code = 753) MEAN CORPUSCULAR HEMOGLOBIN 24.2 pg 25.6-32.2 L (BEAKER) (test code = 751) MEAN CORPUSCULAR HEMOGLOBIN CONC 31.2 GM/DL 32.2-35.5 L (BEAKER) (test code = 752) RED CELL DISTRIBUTION WIDTH 19.1 % 11.7-14.4 H (BEAKER) (test code = 412) PLATELET COUNT (BEAKER) (test 228 K/CU MM 150-450 code = 756) MEAN PLATELET VOLUME (BEAKER) 10.5 fL 9.4-12.3 (test code = 754) NUCLEATED RED BLOOD CELLS 0 /100 WBC 0-0 (BEAKER) (test code = 413) MR, ABDOMEN, [id number] 16:43:00FINAL REPORT MRCP, MRI of abdomen without [...] of the cystic duct. There is associated int rahepatic and extrahepatic biliary ductal dilation. Findings of acute cholecystitis with mild pericholecystic fluid and wall thickening. Numerous stones are seen in the gallbladder lumen. Signed: Edwardo Jeter MDReport Verified Date/Time: 11/08/2017 16:43:17 Reading Location: [facility] B1 C013Y CT Body Reading Room TIC FUNCTION [id number] 09:48:00 Test Item Value Reference Range Interpretation Comments TOTAL PROTEIN (BEAKER) (test code = 6.9 gm/dL 6.0-8.3 770) ALBUMIN (BEAKER) (test code = 1145) 4.0 g/dL 3.5-5.0 BILIRUBIN TOTAL (BEAKER) (test code 0.5 mg/dL 0.2-1.2 = 377) BILIRUBIN DIRECT (BEAKER) (test 0.3 mg/dL 0.1-0.5 code = 706) ALKALINE PHOSPHATASE (BEAKER) (test 74 U/L 40-150 code = 346) AST (SGOT) (BEAKER) (test code = 18 U/L 5-34 353) ALT (SGPT) (BEAKER) (test code = 20 U/L 6-55 347) LACTIC ACID, VENOUS, WHOLE [id number] 23:51:00 Test Item Value Reference Range Interpretation Comments LACTATE BLOOD VENOUS (2) (BEAKER) 1.0 mmol/L 0.5-2.2 (test code = 2872) Effective 10/15/2015: Units/Reference Range ChangeNew: 0.5-2.2 mmol/L Previous: 5-20 mg/dLHCG, QUANTITATIVE, [id number] 23:39:00 Test Item Value Reference Range Interpretation Comments GONADOTROPIN, CHORIONIC (HCG) QUANT 34 mIU/mL 0-10 H (BEAKER) (test code = 649) Non- Females: <10 mIU/mL Females: Gestation Age Reference Range(mIU/mL) 0.2-1 Week 5-50 1-2 Weeks 50-500 2-3 Weeks 100-5,000 3-4Weeks 500-10,000 4-5 Weeks 1,000-50,000 5-6 Weeks 10,000-100,000 6-8 Weeks 15,000-200,000 2-3 Months 10,000-100,000CBC W/PLT COUNT & AUTO [id number] 20:31:00 Test Item Value Reference Range Interpretation Comments WHITE BLOOD CELL COUNT (BEAKER) 12.7 K/ L 3.5-10.5 H (test code = 775) RED BLOOD CELL COUNT (BEAKER) 4.18 M/ L 3.93-5.22 (test code = 761) HEMOGLOBIN (BEAKER) (test code = 10.0 GM/DL 11.2-15.7 L 410) HEMATOCRIT (BEAKER) (test code = 32.6 % 34.1-44.9 L 411) MEAN CORPUSCULAR VOLUME (BEAKER) 78.0 fL 79.4-94.8 L (test code = 753) MEAN CORPUSCULAR HEMOGLOBIN 23.9 pg 25.6-32.2 L (BEAKER) (test code = 751) MEAN CORPUSCULAR HEMOGLOBIN CONC 30.7 GM/DL 32.2-35.5 L (BEAKER) (test code = 752) RED CELL DISTRIBUTION WIDTH 18.7 % 11.7-14.4 H (BEAKER) (test code = 412) PLATELET COUNT (BEAKER) (test 223 K/CU MM 150-450 code = 756) MEAN PLATELET VOLUME (BEAKER) 10.5 fL 9.4-12.3 (test code = 754) NUCLEATED RED BLOOD CELLS 0 /100 WBC 0-0 (BEAKER) (test code = 413) BASIC METABOLIC [id number] 20:14:00 Test Item Value Reference Range Interpretation Comments SODIUM (BEAKER) 138 meq/L 136-145 (test code = 381) POTASSIUM (BEAKER) 3.5 meq/L 3.5-5.1 (test code = 379) CHLORIDE (BEAKER) 112 meq/L 98-107 H (test code = 382) CO2 (BEAKER) (test 13 meq/L 22-29 L code = 355) BLOOD UREA NITROGEN 5 mg/dL 7-21 L (BEAKER) (test code = 354) CREATININE (BEAKER) 0.63 mg/dL 0.57-1.25 (test code = 358) GLUCOSE RANDOM 113 mg/dL 70-105 H (BEAKER) (test code = 652) CALCIUM (BEAKER) 8.7 mg/dL 8.4-10.2 (test code = 697) EGFR (BEAKER) (test mL/min/1.73 INSUFFIC IENT CLINICAL code = 1092) sq m DATA TO CALCULA TE ESTIMATED GFR. [id number] 20:14:00 Test Item Value Reference Range Interpretation Comments LIPASE (BEAKER) (test code = 749) < U/L 8-78 L [id number] 20:13:00 Test Item Value Reference Range Interpretation Comments PHOSPHORUS (BEAKER) (test code = 2.7 mg/dL 2.3-4.7 604) [id number] 20:13:00 Test Item Value Reference Range Interpretation Comments MAGNESIUM (BEAKER) (test code = 2.0 mg/dL 1.6-2.6 627) [id number] 20:13:00 Test Item Value Reference Range Interpretation Comments AMYLASE (BEAKER) (test code = 349) 27 U/L 25-125
[2021-08-17] MEDS ORDERED: ONDANSETRON 4 MG (ODT) TAB ONE (01:04)
[2021-08-17] MEDS ORDERED: dexAMETHasone 10 MG/ML VIAL ONE (01:04)
[2021-08-17] MEDS ORDERED: LIDOCAINE VISCOUS 2% SOLN 15 ML UDC ONE (01:05)
[2021-08-17 01:32] LABS: SARS-COV-2 RT PCR POSITIVE (NEGATIVE)
--- NOTE | 2021-08-17 02:07 | ER ---
Nurse's Notes [facility] Name: Allison Marvin Age: 31 yrs Sex: Female : 1990 Arrival Date: 08/16/2021 Time: 23:40 Bed 6 Private MD: Diagnosis: Coronavirus infection, unspecified;Unspecified acute conjunctivitis, right eye Presentation: 08/17 00:15 Chief complaint: Patient states: My son had a bacterial infection that was coming out vc1 through his eyes and he has a ear infection, the said it wouldn't transfer to me but now my eye is pink, I can't swallow, my throat hurts. Coronavirus screen: Vaccine status: Patient reports receiving the 2nd dose of the covid vaccine. Moderna, no booster congestion, cough unrelated to allergies, fatigue, nausea, sore throat, vomiting. Client presents with at least one sign or symptom that may indicate coronavirus-19. Standard/surgical mask placed on the client. Provider contacted for isolation considerations. Ebola Screen: No symptoms or risks identified at this time. Initial Sepsis Screen: Does the patient meet any 2 criteria? No. Patient's initial sepsis screen is negative. Does the patient have a suspected source of infection? No. Patient's initial sepsis screen is negative. Risk Assessment: Do you want to hurt yourself or someone else? Patient reports no desire to harm self or others. Onset of symptoms is unknown. 00:15 Method Of Arrival: Ambulatory vc1 00:15 Acuity: DWAINE 3 vc1 00:15 Chief complaint: Patient states: I also have had diarrhea for a week, it's green and vc1 really lose. Triage Assessment: 00:20 General: Appears in no apparent distress. uncomfortable, ill, Behavior is calm, vc1 cooperative, appropriate for age. Pain: Complains of pain in throat Pain does not radiate. Pain currently is 10 out of 10 on a pain scale. Quality of pain is described as sharp. EENT: Reports difficulty swallowing nasal congestion pain when swallowing. 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 - Social history:: Smoking status: Patient denies any tobacco usage or history of. Smoking status: . Screenin:42 Abuse screen: Denies threats or abuse. Denies injuries from another. Nutritional tw5 screening: No deficits noted. Tuberculosis screening: No symptoms or risk factors identified. Fall Risk No fall in past 12 months (0 pts). Assessment: 00:42 General: Reports "I have an eye infection, just like my son had. For the a week I have tw5 been taking cold and flu medication, but nothing is not getting better. My throat hurts, I have been throwing up and now I am having diarrhea.". Pain: Complains of pain in "Throat" Pain currently is 10 out of 10 on a pain scale. Neuro: Level of Consciousness is awake, alert, obeys commands, Oriented to person, place, time, situation. Respiratory: Airway is patent Trachea midline Respiratory effort is even, unlabored, Breath sounds are clear bilaterally. EENT: Throat is reddened bilaterally with gag reflex present, "I would rather spit up my saliva than swallow". 01:15 Reassessment: Patient appears in no apparent distress at this time. tw5 Vital Signs: 00:15 BP 129 / 99; Pulse 65; Resp 18; Temp 98.2(O); Pulse Ox 100% on R/A; Weight 77.11 kg; vc1 Height 5 ft. 4 in. (162.56 cm); Pain 10/10; 00:42 BP 144 / 96; Pulse 72; Resp 18; Pulse Ox 100% on R/A; tw5 01:15 BP 131 / 103; Pulse 77; Resp 18; Pulse Ox 99% on R/A; tw5 02:27 BP 133 / 90; Pulse 71; Resp 18 S; Pulse Ox 100% on R/A; as6 00:15 Body Mass Index 29.18 (77.11 kg, 162.56 cm) vc1 ED Course: 08/16 23:40 Patient arrived in ED. es 08/17 00:20 Triage completed. vc1 00:23 Arm band placed on left wrist. vc1 00:33 Edgar Sandoval, RN is Primary Nurse. as6 00:38 COVID-19/FLU A+B/RSV (Document "Date of Onset" if Symptomatic) Sent. vc1 00:39 Strep Sent. vc1 00:40 Arpit Rivers NP is PHCP. pm1 00:40 Ethan Vences MD is Attending Physician. pm1 00:42 Patient has correct armband on for positive identification. Placed in gown. Bed in low tw5 position. Side rails up X 1. Adult w/ patient. Pulse ox on. NIBP on. Door closed. Noise minimized. Moved to private room. Warm blanket given. Verbal reassurance given. 00:45 Group A Streptococcus Rapid Sc Sent. tw5 00:46 COVID-19/FLU A+B/RSV Sent. tw5 01:15 [place] Screen Profile Sent. tw5 01:15 Initial lab(s) drawn, by me, sent to lab. tw5 02:27 No provider procedures requiring assistance completed. Patient did not have IV access as6 during this emergency room visit. Administered Medications: 01:04 Drug: Ondansetron 4 mg Route: PO; tw5 02:31 Follow up: Response: No adverse reaction as6 01:08 Drug: Decadron (dexamethasone) 10 mg Route: IM; Site: right deltoid; tw5 02:32 Follow up: Response: No adverse reaction as6 01:09 Drug: Viscous Lidocaine Liquid (4 %) 5 ml Route: Mucous Membrane; tw5 02:32 Follow up: Response: No adverse reaction as6 Outcome: 02:07 Discharge ordered by MD. pm1 02:27 Discharged to home ambulatory, with significant other. as6 02:27 Condition: stable 02:27 Discharge instructions given to patient, Instructed on discharge instructions, follow up and referral plans. medication usage, Demonstrated understanding of instructions, follow-up care, medications, Prescriptions given X 2. 02:31 Patient left the ED. as6 Signatures: Olesya Vo Patrick, NP CONFERENCE SERVICES MANAGER pm1 Peyton Sullivan tw5 Edgar Sandoval RN RN as6 Violet Mary RN RN vc1 Corrections: (The following items were deleted from the chart) 00:22 00:20 PMHx: GERD; vc1 vc1 00:22 00:20 PSHx: None; vc1 vc1
--- NOTE | 2021-08-17 02:08 | EDPHYS ---
Physician Documentation [facility] Name: Allison Marvin Age: 31 yrs Sex: Female : 1990 Arrival Date: 08/16/2021 Time: 23:40 Bed 6 Private MD: ED Physician Ethan Vences HPI: 08/17 01:14 This 31 yrs old Female presents to ER via Ambulatory with complaints of Cough, pm1 Sore Throat, Eye Problem. 01:14 The patient or guardian reports cough. Associated signs and symptoms: Pertinent pm1 positives: sore throat, itchy red left eye. The patient has not experienced similar symptoms in the past. The patient has not recently seen a physician, But her 4 year old son was seen for the same symptoms and given medications for treatment. Patient with sore throat for 7 days and onset of red itchy eye yesterday. 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 - Social history:: Smoking status: Patient denies any tobacco usage or history of. Smoking status: . ROS: 01:14 Constitutional: Negative for fever, chills, and weight loss. pm1 01:14 Cardiovascular: Negative for chest pain, palpitations, and edema. 01:14 Back: Negative for injury and pain, MS/Extremity: Negative for injury and deformity, Skin: Negative for injury, rash, and discoloration, Neuro: Negative for headache, weakness, numbness, tingling, and seizure. 01:14 Eyes: Positive for itching, redness, of the right eye. 01:14 ENT: Positive for sore throat. 01:14 Respiratory: Positive for cough, Negative for shortness of breath. 01:14 Abdomen/GI: Positive for nausea and vomiting, Negative for abdominal pain, diarrhea, constipation. 01:14 All other systems are negative. Exam: 01:14 Constitutional: This is a well developed, well nourished patient who is awake, alert, pm1 and in no acute distress. Head/Face: Normocephalic, atraumatic. 01:14 Skin: Warm, dry with normal turgor. Normal color with no rashes, no lesions, and no evidence of cellulitis. MS/ Extremity: Pulses equal, no cyanosis. Neurovascular intact. Full, normal range of motion. 01:14 Cardiovascular: Exam negative for acute changes, Rate: normal, Rhythm: regular, Pulses: no pulse deficits are appreciated. 01:14 Respiratory: Exam negative for acute changes, respiratory distress, shortness of breath, Breath sounds: are clear throughout. 01:14 Neuro: Exam negative for acute changes, Orientation: is normal, Mentation: is normal, Motor: is normal, moves all fours. Vital Signs: 00:15 BP 129 / 99; Pulse 65; Resp 18; Temp 98.2(O); Pulse Ox 100% on R/A; Weight 77.11 kg; vc1 Height 5 ft. 4 in. (162.56 cm); Pain 10/10; 00:42 BP 144 / 96; Pulse 72; Resp 18; Pulse Ox 100% on R/A; tw5 01:15 BP 131 / 103; Pulse 77; Resp 18; Pulse Ox 99% on R/A; tw5 02:27 BP 133 / 90; Pulse 71; Resp 18 S; Pulse Ox 100% on R/A; as6 00:15 Body Mass Index 29.18 (77.11 kg, 162.56 cm) vc1 MDM: 00:53 Patient medically screened. pm1 02:06 Data reviewed: vital signs. Data interpreted: Pulse oximetry: on room air is 99 %. pm1 Interpretation: normal. Counseling: I had a detailed discussion with the patient and/or guardian regarding: the historical points, exam findings, and any diagnostic results supporting the discharge/admit diagnosis, lab results, the need for outpatient follow up, to return to the emergency department if symptoms worsen or persist or if there are any questions or concerns that arise at home. 08/17 00:24 Order name: Strep vc1 08/17 00:24 Order name: COVID-19/FLU A+B/RSV (Document "Date of Onset" if Symptomatic) vc1 08/17 00:25 Order name: Group A Streptococcus Rapid Sc; Complete Time: 01:12 EDMS 08/17 00:25 Order name: COVID-19/FLU A+B/RSV; Complete Time: 01:41 EDMS 08/17 01:00 Order name: [place] Screen Profile; Complete Time: 02:06 pm1 08/17 01:06 Order name: Throat Culture EDMS Administered Medications: 01:04 Drug: Ondansetron 4 mg Route: PO; tw5 02:31 Follow up: Response: No adverse reaction as6 01:08 Drug: Decadron (dexamethasone) 10 mg Route: IM; Site: right deltoid; tw5 02:32 Follow up: Response: No adverse reaction as6 01:09 Drug: Viscous Lidocaine Liquid (4 %) 5 ml Route: Mucous Membrane; tw5 02:32 Follow up: Response: No adverse reaction as6 Disposition: 03:24 Co-signature as Attending Physician, Ethan Vences MD. [email or web address] Disposition Summary: 08/17/21 02:07 Discharge Ordered Location: Home pm1 Problem: new pm1 Symptoms: have improved pm1 Condition: Stable pm1 Diagnosis - Coronavirus infection, unspecified pm1 - Unspecified acute conjunctivitis, right eye pm1 Followup: pm1 - With: Emergency Department - When: As needed - Reason: Worsening of condition Followup: pm1 - With: Private Physician - When: 2 - 3 days - Reason: Recheck today's complaints, Continuance of care, Re-evaluation by your physician Discharge Instructions: - Discharge Summary Sheet pm1 - Bacterial Conjunctivitis, Adult pm1 - How to Use Eye Drops and Eye Ointments pm1 - COVID-19 pm1 - COVID-19 Frequently Asked Questions pm1 - 10 Things You Can Do to Manage Your COVID-19 Symptoms at Home - [facility] pm1 - COVID-19: Quarantine vs. Isolation - [facility] pm1 Forms: - Medication Reconciliation Form pm1 - Thank You Letter pm1 - Antibiotic Education pm1 - Prescription Opioid Use pm1 Prescriptions: - Erythromycin 5 mg/gram (0.5 %) Ophthalmic Ointment - apply 1 centimeter by OPHTHALMIC route every 8 hours for 7 days; 1 tube; pm1 Refills: 0, Product Selection Permitted - Bromfed DM 2-30-10 mg/5 mL Oral syrup - take 10 milliliter by ORAL route every 4 hours As needed; 240 milliliter; pm1 Refills: 0, Product Selection Permitted Signatures: Dispatcher [employer] Arpit Barr, [employer] NEWS GATHERING TECHNICIAN pm1 Ethan Vences MD MD 7 Peyton Sullivan tw5 Violet Mary RN RN vc1 Edgar Sandoval RN as6 Corrections: (The following items were deleted from the chart) 00:22 00:20 PMHx: GERD; vc1 vc1 00:22 00:20 PSHx: None; vc1 vc1
[2021-08-17 03:15] VITALS: TEMP 98.2
[2021-08-17 03:21] VITALS: BP 133/90; O2SAT 100
== END 2021-08-17 02:31 | disposition home or self-care (01) ==
LOC: ER 23:39
DX: U07.1 COVID-19 (principal); H10.31 Unspecified acute conjunctivitis, right eye
CPT/HCPCS: 87070; 36415; 86308; 87081; 0241U; J1100; 96372; 99284

== ENCOUNTER 2021-09-29 16:28 | Emergency (ER) | payer OTHER ==
--- OUTSIDE RECORDS SUMMARY | 2021-09-29 16:32 | XMS REPORT | Continuity of Care Document ---
:1990 Author Organization [facility] Address [address] [place] [address] Dr. Guzman [address] [place] [address] Care Team Providers Name Role Phone G_Pappas Attending Clinician Unavailable CHOLE RAMOS Attending Clinician Unavailable PRIYA PARIKH Attending Clinician Unavailable Vinod MIRANDA Attending Clinician Unavailable FLAVIO Attending Clinician Unavailable G_Pappas Admitting Clinician Unavailable ALEJANDRO MICHEL Admitting Clinician Unavailable RODRIGO ANTON Admitting Clinician Unavailable FLAVIO Admitting Clinician Unavailable Payers Payer Name Policy Type Policy Number Effective Date Expiration Date [facility] [id number] 2016 [facility] 00:00:00 (MEDICAID HMO) Problems This patient has no known problems. Allergies, Adverse Reactions, Alerts This patient has no known allergies or adverse reactions. Medications This patient has no known medications. Procedures This patient has no known procedures. Encounters Start End Encounter Admission Attending Care Care Encounter Source Date/Time Date/Time Type Type Clinicians Facility Department ID 2020-04-30 2020-04-30 Outpatient G[facility]Pappas [facility] [id number] [place] 02:44:00 02:44:00 [id number] 2019-12-20 2019-12-20 [place] [facility] [place] [id number]- [id number] [place] 05:00:00 05:00:00 [id number] Results Test Description Test Time Test Comments Results Result Comments Source BLOOD CULTURE 2018-06-21 19:01:00 Test Item Value Reference Range Interpretation Comme nts CULTURE (BEAKER) (test code = 1095) No growth in 5 days BLOOD [id number] 19:01:00 Test Item Value Reference Range Interpretation Comments CULTURE (BEAKER) (test No growth in 5 days code = 1095) CBC W/PLT COUNT & AUTO [id number] 14:44:00 Test Item Value Reference Range Interpretation [...] T O CALCULATE ESTIM ATED GFR. FL, [id number] 20:26:00INTRA OP IMAGINGReason for exam:->ABNORMAL IMAGING FINAL REPORT ERCP 3 views 06/20/2018 8:26 PM CLINICAL HISTORY: Instrument localization COMPARISON: None available IMPRESSION: Please correlate imaging report findings with the procedure note prepared by Dr. Vera, as an intra-procedure imaging consultation was not requested. Reported fluoroscopy time: 112.6 seconds. Signed: Rufus Martin Verified Date/Time: 06/20/2018 20:26:35 Reading Location: [facility] Radiology Reading Room CBC W/PLT COUNT & AUTO [id number] 15:03:00 Test Item Value Reference Range Interpretation [...] (BEAKER) (test code = 2801) COMPREHENSIVE METABOLIC [id number] 07:54:00 Test Item Value Reference Range Interpretation [...] O CALCULATE ESTIM ATED GFR. HEPATIC FUNCTION [id number] 13:20:00 Test Item Value Reference Range Interpretation [...] (test code = 347) hemolyzed BASIC METABOLIC [id number] 06:15:00 Test Item Value Reference Range Interpretation [...] TO CALCULA TE ESTIMATED GFR. HEPATIC FUNCTION [id number] 06:14:00 Test Item Value Reference Range Interpretation [...] H 347) CBC W/PLT COUNT & AUTO [id number] 05:43:00 Test Item Value Reference Range Interpretation [...] (BEAKER) (test code = 2801) HEPATIC FUNCTION [id number] 06:44:00 Test Item Value Reference Range Interpretation [...] = 29 U/L 6-55 347) BASIC METABOLIC [id number] 06:44:00 Test Item Value Reference Range Interpretation [...] ESTIMATED GFR. CBC W/PLT COUNT & AUTO [id number] 05:36:00 Test Item Value Reference Range Interpretation [...] (test code = 2801) RAD, CHEST, 2 [id number] 18:34:00Reason for exam:->cough, feverFINAL REPORT INDICATION: cough, fever COMPARISON: None. TECHNIQUE: Chest radiograph, two views, PA and lateral. FINDINGS / IMPRESSION:Lung volumes are normal and there is no evidence of pneumonia or pulmonary edema. Cardiac and mediastinal contours are normal. No pneumothorax or pleural effusion is demonstrated. In summary, unremarkable chest radiograph. Signed: Cirilo Wilson Verified Date/Time: 06/17/2018 18:34:53 Reading Location: [address] Consult Reading Room MR, ABDOMEN, WITH [...] MDReport Verified Date/Time: 06/17/2018 16:44:12 Reading Location: [facility] C013X Ortho Consult Reading Room HEPATIC FUNCTION [id number] 05:48:00 Test Item Value Reference Range Interpretation [...] = 13 U/L 6-55 347) BASIC METABOLIC [id number] 05:48:00 Test Item Value Reference Range Interpretation [...] ESTIMATED GFR. CBC W/PLT COUNT & AUTO [id number] 04:40:00 Test Item Value Reference Range Interpretation [...] PERCENT (BEAKER) (test code = 2801) TROPONIN [id number] 12:32:00 Test Item Value Reference Range Interpretation [...] failure, acidosis, acute neurological disease, and persistent tachyarrhythmia.[id number] 12:26:00 Test Item Value Reference Range Interpretation Comments PHOSPHORUS (BEAKER) (test code = 3.1 mg/dL 2.3-4.7 604) [id number] 12:26:00 Test Item Value Reference Range Interpretation Comments MAGNESIUM (BEAKER) (test code = 2.0 mg/dL 1.6-2.6 627) [id number] 12:26:00 Test Item Value Reference Range Interpretation Comments LIPASE (BEAKER) (test code = 749) 5 U/L 8-78 L [id number] 11:55:00 Test Item Value Reference Range Interpretation Comments PARTIAL THROMBOPLASTIN TIME 27.7 seconds 22.5-36.0 (BEAKER) (test code = 760) PROTHROMBIN [id number] 11:54:00 Test Item Value Reference Range Interpretation Comments PROTIME (BEAKER) (test code = 13.8 seconds 11.7-14.7 759) INR (BEAKER) (test code = 370) 1.1 <=5.9 RECOMMENDED COUMADIN/WARFARIN INR THERAPY RANGESSTANDARD DOSE: 2.0 - 3.0 Includes: PROPHYLAXIS forvenous thrombosis, systemic embolization; TREATMENT for venous thrombosis and/or pulmonary embolus.HIGH RISK: Target INR is 2.5-3.5 for patients with mechanical heart valves.OXYGEN SATURATION, [id number] 11:34:00 Test Item Value Reference Range Interpretation Comments O2 SATURATION (MEASURED) (BEAKER) 82.3 % (test code = 1455) If patient has internal jugular ( IJ) or subclavian central line or PICC line. Draw from distal port. Label as central venous oxygen.POCT-LACTIC ACID, VENOUS 2018-06-16 11:01:00 Test Item Value Reference Range Interpretation Comments POC-LACTIC ACID, 0.7 mmol/L 0.9-1.7 L TESTED AT [facility] 6720 VENOUS (BEAKER) ([facility] [employer] [place] code = 2805) [address] BASIC METABOLIC [id number] 10:57:00 Test Item Value Reference Range Interpretation [...] m DATA TO CALCULA TE ESTIMATED GFR. [id number] 10:15:00 Test Item Value Reference Range Interpretation Comments LIPASE (BEAKER) (test code = 749) 5 U/L 8-78 L [id number] 10:15:00 Test Item Value Reference Range Interpretation Comments AMYLASE (BEAKER) (test code = 349) 145 U/L 25-125 H HEPATIC FUNCTION [id number] 10:15:00 Test Item Value Reference Range Interpretation [...] 347) RAD, ABDOMEN SERIES W/ UPRIGHT PA [id number] 09:51:00Reason for exam:- >abdominal painIs the patient [...] rt Verified Date/Time: 06/16/2018 09:51:35 Reading Location: [facility] Radiology Reading Room URINALYSIS W/ [id number] 09:09:00 Test Item Value Reference Range Interpretation [...] code Urine, Clean Catch = 2795) SCREEN, [id number] 09:09:00 Test Item Value Reference Range Interpretation Comments TEST URINE (BEAKER) (test Negative code = 583) U/S, ABDOMINAL, [id number] 08:09:00Abdomen limited area? Add comment if clarification [...] [place] Verified Date/Time: 06/16/2018 08:09:11 Reading Location: [address] Ultrasound Reading Room CBC W/PLT COUNT & AUTO [id number] 07:43:00 Test Item Value Reference Range Interpretation [...] PERCENT (BEAKER) (test code = 2801) BLOOD [id number] 00:00:00 Test Item Value Reference Range Interpretation Comments CULTURE (BEAKER) (test No growth in 5 days code = 1095) BLOOD [id number] 00:00:00 Test Item Value Reference Range Interpretation Comments CULTURE (BEAKER) (test No growth in 5 days code = 1095) UT, [id number] 16:00:00INTRA OP IMAGINGReason for exam:->BILE DUCT DISEASEFINAL [...] Simonort Verified Date/Time: 01/27/2018 16:00:09 Reading Location: [facility] C0[facility] Consult Reading [facility] METABOLIC [id number] 05:15:00 Test Item Value Reference Range Interpretation [...] TO CALCULA TE ESTIMATED GFR. HEPATIC FUNCTION [id number] 05:12:00 Test Item Value Reference Range Interpretation [...] code = 7 U/L 6-55 347) PROTHROMBIN TIME/[id number] 05:06:00 Test Item Value Reference Range Interpretation [...] code = 2801) LACTIC ACID, VENOUS, WHOLE [id number] 18:27:00 Test Item Value Reference Range Interpretation Comments LACTATE BLOOD VENOUS 1.2 mmol/L 0.5-2.2 Specime n slightly (2) (BEAKER) (test hemolyzed code = 2872) Effective 10/15/2015: Units/Reference Range ChangeNew: 0.5-2.2 mmol/L Previous: 5-20 mg/dLLACTIC ACID, VENOUS, WHOLE [id number] 13:30:00 Test Item Value Reference Range Interpretation Comments LACTATE BLOOD VENOUS (2) (BEAKER) 1.4 mmol/L 0.5-2.2 (test code = 2872) Effective 10/15/2015: Units/Reference Range ChangeNew: 0.5-2.2 mmol/L Previous: 5-20 mg/dLRAPID DRUG SCREEN, [id number] 09:48:00 Test Item Value Reference Range Interpretation [...] situations. Chain of custody not maintained. Some byew-opq-ezfxkhe medications, as well as adulterants, may cause inaccurate results. Clinical correlation should be applied. A more comprehensive drug screen or confirmation of a detected drug may be performed upon request. RAD, CHEST, 1 VIEW, NON [id number] 08:24:00Reason for exam:->chest painShould this be performed at the bedside?->YesFINAL REPORT Chest one view INDICATION: Chest pain COMPARISON: None available IMPRESSION: There is no focal consolidation, vascular congestion, pleural effusion, or pneumothorax.Cardiac silhouette prominence is magnified by technique. Mediastinal contours are unremarkable. There are incidental nipple piercings. The bones appear intact. Signed: Linda Simon MDReport Veri fied Date/Time: 01/25/2018 08:24:36 Reading Location: [facility] Radiology Reading Room BASIC METABOLIC [id number] 02:56:00 Test Item Value Reference Range Interpretation [...] TO CALCULA TE ESTIMATED GFR. HEPATIC FUNCTION [id number] 02:52:00 Test Item Value Reference Range Interpretation [...] code = 7 U/L 6-55 347) PROTHROMBIN [id number] 02:40:00 Test Item Value Reference Range Interpretation [...] (BEAKER) (test code = 2801) U/S, ABDOMINAL, [id number] 19:33:00Reason for exam:->ABDOMINAL PAIN FINAL REPORT Ultrasound [...] MDReport Verified Date/Time: 01/24/2018 19:33:46 Reading Location: [address] Consult Reading Room C METABOLIC [id number] 18:46:00 Test Item Value Reference Range Interpretation [...] m DATA TO CALCULA TE ESTIMATED GFR. [id number] 18:45:00 Test Item Value Reference Range Interpretation Comments LIPASE (BEAKER) (test code = 749) 15 U/L 8-78 [id number] 18:45:00 Test Item Value Reference Range Interpretation Comments AMYLASE (BEAKER) (test code = 349) 44 U/L 25-125 HEPATIC FUNCTION [id number] 18:45:00 Test Item Value Reference Range Interpretation [...] U/L 6-55 347) Specimen slightly lipemicURINALYSIS W/ [id number] 18:41:00 Test Item Value Reference Range Interpretation [...] SOURCE(BEAKER) (test code Urine, Clean Catch = 3015) SCREEN, [id number] 18:36:00 Test Item Value Reference Range Interpretation Comments TEST URINE (BEAKER) (test Negative code = 583) CBC W/PLT COUNT & AUTO [id number] 18:18:00 Test Item Value Reference Range Interpretation [...] PERCENT (BEAKER) (test code = 2801) CT, [id number] 18:39:00Reason for exam:->ABDOMINAL PAINIs the patient ?->UnknownWhat [...] [place] Verified Date/Time: 12/09/2017 18:39:14 Reading Location: [facility] Diagnostic Imaging Reading Room - [address] signed by: CASSIE FROST M.D. on 12/09/2017 06:39 PMCOMPREHENSIVE METABOLIC [id number] 16:59:00 Test Item Value Reference Range Interpretation [...] T O CALCULATE ESTIM ATED GFR. SCREEN, [id number] 16:57:00 Test Item Value Reference Range Interpretation Comments TEST URINE (BEAKER) (test Negative code = 583) URINALYSIS W/ [id number] 16:52:00 Test Item Value Reference Range Interpretation [...] /LPF 514) SOURCE(BEAKER) (test code = 2795) [id number] 16:48:00 Test Item Value Reference Range Interpretation Comments LIPASE (BEAKER) (test code = 749) 9 U/L 8-78 [id number] 16:32:00 Test Item Value Reference Range Interpretation [...] PERCENT (BEAKER) (test code = 2801) TISSUE [id number] 10:42:00Surgical Pathology Report Case: [id number] Authorizing Provider: Tawanda Farfan MD Collected: 11/11/2017 1806 Ordering Location: [facility] Received: 11/14/2017 0743 SERVICES Pathologist: Mabel Mejia MD Specimen: Gallbladder, Gallbladder and Lymph Node GALLBLADDER,LAPAROSCOPIC CHOLECYSTECTOMY: - ACUTE SEROSITIS AND PERICHOLECYSTITIS - PREDOMINANTLT CHRONIC CHOLECYSTITISIN SECTIONS EXAMINED - CHOLELITHIASIS - CYSTIC DUCT MARGIN, UNREMARKABLE - BENIGN CYSTIC LYMPH NODE - NO DYSPLASIA OR MALIGNANCY SEEN Signing Pathologist Direct Phone Line: [phone] signed by Mabel Mejia MD on 11/15/2017 at 10:42 [id number] cholecystitis Gallbladder and lymph node The specimen [...] lymph node; A2, gallbladder wall. CG/ewPERFORMEDBASIC METABOLIC [id number] 07:18:00 Test Item Value Reference Range Interpretation [...] m DATA TO CALCULA TE ESTIMATED GFR. [id number] 07:17:00 Test Item Value Reference Range Interpretation Comments PARTIAL THROMBOPLASTIN TIME 33.3 seconds 22.5-36.0 (BEAKER) (test code = 760) PROTHROMBIN [id number] 07:16:00 Test Item Value Reference Range Interpretation [...] WBC 0-0 (BEAKER) (test code = 413) UT, [id number] 08:59:00Reason for exam:->CBD stonesFINAL REPORT Two fluoroscopic abdomen images during ERCP. Fluoroscopy time 178 .5 seconds. Fluoroscopy was not performed by the undersigned. Refer to procedure notes for diagnostic and therapeutic detail. Signed: Cassie Villa Verified Date/Time: 11/10/2017 08:59:33 Reading Location: [facility] Radiology Reading Room Electronically signed by: CASSIE VILLA M.D.on 11/10/2017 08:59 AMPREGNANCY SCREEN, [id number] 16:06:00 Test Item Value Reference Range Interpretation Comments TEST URINE (BEAKER) (test Negative code = 583) BASIC METABOLIC [id number] 05:31:00 Test Item Value Reference Range Interpretation [...] m DATA TO CALCULA TE ESTIMATED GFR. [id number] 05:02:00 Test Item Value Reference Range Interpretation Comments PARTIAL THROMBOPLASTIN TIME 32.0 seconds 22.5-36.0 (BEAKER) (test code = 760) PROTHROMBIN TIME/[id number] 05:01:00 Test Item Value Reference Range Interpretation [...] (BEAKER) (test code = 413) MR, ABDOMEN, [id number] 16:43:00FINAL REPORT MRCP, MRI of abdomen without [...] MDReport Verified Date/Time: 11/08/2017 16:43:17 Reading Location: [facility] B1 C013Y CT Body Reading Room TIC FUNCTION [id number] 09:48:00 Test Item Value Reference Range Interpretation [...] U/L 6-55 347) LACTIC ACID, VENOUS, WHOLE [id number] 23:51:00 Test Item Value Reference Range Interpretation Comments LACTATE BLOOD VENOUS (2) (BEAKER) 1.0 mmol/L 0.5-2.2 (test code = 2872) Effective 10/15/2015: Units/Reference Range ChangeNew: 0.5-2.2 mmol/L Previous: 5-20 mg/dLHCG, QUANTITATIVE, [id number] 23:39:00 Test Item Value Reference Range Interpretation Comments GONADOTROPIN, CHORIONIC (HCG) QUANT 34 mIU/mL 0-10 H (BEAKER) (test code = 649) Non- Females: <10 mIU/mL Females: Gestation Age Reference Range(mIU/mL) 0.2-1 Week 5-50 1-2 Weeks 50-500 2-3 Weeks 100-5,000 3-4Weeks 500-10,000 4-5 Weeks 1,000-50,000 5-6 Weeks 10,000-100,000 6-8 Weeks 15,000-200,000 2-3 Months 10,000-100,000CBC W/PLT COUNT & AUTO [id number] 20:31:00 Test Item Value Reference Range Interpretation [...] (BEAKER) (test code = 413) BASIC METABOLIC [id number] 20:14:00 Test Item Value Reference Range Interpretation [...] m DATA TO CALCULA TE ESTIMATED GFR. [id number] 20:14:00 Test Item Value Reference Range Interpretation Comments LIPASE (BEAKER) (test code = 749) < U/L 8-78 L [id number] 20:13:00 Test Item Value Reference Range Interpretation Comments PHOSPHORUS (BEAKER) (test code = 2.7 mg/dL 2.3-4.7 604) [id number] 20:13:00 Test Item Value Reference Range Interpretation Comments MAGNESIUM (BEAKER) (test code = 2.0 mg/dL 1.6-2.6 627) [id number] 20:13:00 Test Item Value Reference Range Interpretation Comments AMYLASE (BEAKER) (test code = 349) 27 U/L 25-125
[2021-09-29 17:34] LABS: Urine Blood Trace-intact (Negative); Urine Glucose Negative (Negative); Urine Protein Negative (Negative); Urine Specific Gravity 1.025 (1.005-1.030); Urine pH 6.5 (5.0-7.0)
[2021-09-29 17:35] LABS: Absolute Lymphocytes (CBC) 1.6 K/uL (0.7-4.9); Hematocrit 41.7 % (36.0-45.0); Lymphocytes % 19.4 % (15.3-44.8); MPV 9.2 fL (7.6-11.3); RBC Red Blood Cell Count 4.52 M/uL (3.86-4.86)
[2021-09-29 17:36] LABS: Protime INR 1.13
[2021-09-29 17:48] LABS: BUN Blood Urea Nitrogen 11 mg/dL (7-18); Bicarbonate 26 mmol/L (21-32); Glucose Level 95 mg/dL (74-106); Potassium 3.5 mmol/L (3.5-5.1); Sodium Level 140 mmol/L (136-145); Troponin High Sensitivity 4.6 pg/mL (<58.9)
[2021-09-29 17:58] LABS: Urine Specific Gravity/Preg 1.025 (1.005-1.030)
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
[2021-09-29] MEDS ORDERED: KETOROLAC 30 MG/ML INJ ONE (19:38)
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
[2021-09-29 23:15] VITALS: O2SAT 100
[2021-09-29 23:16] VITALS: BP 101/75
--- NOTE | 2021-09-30 08:08 | EKG ---
Test Date: 2021-09-29 Test Time: 17:20:56 Vegetable Preparer: STACIE MEASUREMENT RESULTS: Intervals: Rate: 71 KS: 132 QRSD: 80 QT: 368 QTc: 399 [place]: P: 27 KS: 132 QRS: 62 T: 39 INTERPRETIVE STATEMENTS: Normal sinus rhythm Normal ECG Compared to ECG 04/16/2017 22:27:04 Sinus arrhythmia no longer present Electronically Signed On 09-30-21 08:06:56 CDT by Poncho Chambers
== END 2021-09-29 20:26 | disposition home or self-care (01) ==
LOC: ER 16:28
DX: M54.9 Dorsalgia, unspecified (principal); M25.552 Pain in left hip; V47.5XXA Car driver injured in collision with fixed or stationary object in traffic accident, initial encounter
CPT/HCPCS: 93005; 85025; 80048; 36415; 86900; 86850; 81025; 85610; 82565; 86901; 81003; 84484; 70450; 72125; 71260; 74177; Q9967; 96374; 96375; 99284

== ENCOUNTER 2022-11-07 22:04 | Emergency (ER) | payer OTHER ==
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
[2022-11-07] MEDS ORDERED: ONDANSETRON 4 MG/2 ML VIAL ONE (23:12)
[2022-11-07] MEDS ORDERED: NA CHLORIDE 0.9% 1,000 ML ONE (23:12)
[2022-11-07 23:16] LABS: Absolute Lymphocytes (CBC) 1.4 K/uL (0.7-4.9); Hematocrit 43.5 % (36.0-45.0); Lymphocytes % 10.8 % (15.3-44.8); MCV 91.7 fL (80-100); MPV 9.1 fL (7.6-11.3); RBC Red Blood Cell Count 4.74 M/uL (3.86-4.86)
[2022-11-07 23:30] LABS: Albumin 4.3 g/dL (3.4-5.0); Bilirubin Total 0.7 mg/dL (0.2-1.0); Potassium 3.1 mEq/L (3.5-5.1); Protein, Total 8.5 g/dL (6.4-8.2)
--- NOTE | 2022-11-07 23:41 | ER ---
Nurse's Notes [facility] Name: Allison Marvin Age: 32 yrs Sex: Female : 1990 Arrival Date: 11/07/2022 Time: 22:04 Bed 10 Private MD: Diagnosis: Gastroenteritis Presentation: 11/07 22:07 Chief complaint: Patient states: C/O upper abdominal pain of 8 with nausea, vomiting x pf1 40 episodes, diarrhea x 12 episodes, with clear nasal drainage,onset this AM. 22:07 Method Of Arrival: EMS: [facility] pf1 22:07 Coronavirus screen: Vaccine status: Patient reports receiving the 2nd dose of the covid pf1 vaccine. Moderna Client denies travel out of the [place] in the last 14 days. Client presents with at least one sign or symptom that may indicate coronavirus-19. Ebola Screen: Patient negative for fever greater than or equal to 101.5 degrees Fahrenheit, and additional compatible Ebola Virus Disease symptoms. Initial Sepsis Screen: Does the patient meet any 2 criteria? No. Patient's initial sepsis screen is negative. Does the patient have a suspected source of infection? No. Patient's initial sepsis screen is negative. Risk Assessment: Do you want to hurt yourself or someone else? Patient reports no desire to harm self or others. 22:07 Acuity: DWAINE 3 pf1 Historical: - Allergies: 22:30 No Known Allergies; pf1 - Home Meds: 22:30 None [Active]; pf1 - PMHx: 22:30 None; pf1 - PSHx: 22:30 Cholecystectomy; pf1 - Immunization history:: Adult Immunizations not up to date, Client reports receiving the 2nd dose of the Covid vaccine, Last tetanus immunization: > 10 years ago Flu vaccine is not up to date. - Social history:: Smoking status: unknown. Screenin:[address] [facility] ED Fall Risk Assessment (Adult) History of falling in the last 3 months, pf1 including since admission No falls in past 3 months (0 pts) Confusion or Disorientation No (0 pts) Intoxicated or Sedated No (0 pts) Impaired Gait No (0 pts) Mobility Assist Device Used No (0 pt) Altered Elimination No (0 pt) Score/Fall Risk Level 0 - 2 = Low Risk Oriented to surroundings, Maintained a safe environment, Educated pt \T\ family on fall prevention, incl call for assistance when getting out of bed, Assessed \T\ reinforced patient's understanding of fall precautions, Provided non-skid footwear, Hourly rounding (assess needs \T\ fall precautionary measures) done, Used ambulatory aids as needed (educated on \T\ assisted with), Used gait belt as appropriate. 22:30 Abuse screen: Denies threats or abuse. Nutritional screening: No deficits noted. pf1 Tuberculosis screening: No symptoms or risk factors identified. Assessment: 22:08 General: Appears in no apparent distress. uncomfortable, well groomed, well developed, pf1 Behavior is calm, cooperative, appropriate for age, quiet. 22:08 Pain: Complains of pain in abdomen Pain currently is 8 out of 10 on a pain scale. pf1 Neuro: No deficits noted. Level of Consciousness is awake, alert, obeys commands, Oriented to person, place, time, situation. Cardiovascular: No deficits noted. Capillary refill < 3 seconds Patient's skin is warm and dry. Respiratory: No deficits noted. Airway is patent Respiratory effort is even, unlabored, Respiratory pattern is regular, symmetrical. GI: Reports upper abdominal pain, diarrhea, nausea, vomiting. : No deficits noted. No signs and/or symptoms were reported regarding the genitourinary system. EENT: Reports nasal discharge clear. Derm: No deficits noted. No signs and/or symptoms reported regarding the dermatologic system. 23:00 Reassessment: Patient appears in no apparent distress at this time. Patient and/or pf1 family updated on plan of care and expected duration. Pain level reassessed. Patient is alert, oriented x 3, equal unlabored respirations, skin warm/dry/pink. Patient states feeling better. Patient states symptoms have improved. Vital Signs: 22:07 BP 138 / 91; Pulse 89; Resp 18; Temp 98.1; Pulse Ox 98% on R/A; Weight 81.65 kg; Height pf1 5 ft. 4 in. ; Pain 8/10; 23:00 BP 128 / 97; Pulse 71; Resp 16; Pulse Ox 100% on R/A; Pain 0/10; pf1 22:07 Body Mass Index 30.90 (81.65 kg, 162.56 cm) pf1 22:07 Pain Scale: Adult pf1 23:00 Pain Scale: Adult pf1 ED Course: 22:07 Patient arrived in ED. rv1 22:07 Nader Silva MD is Attending Physician. rt 22:07 Maintain EMS IV. Dressing intact. Good blood return noted. Site clean \T\ dry. Gauge \T\ pf 1 site: 20gauge to right forearm. 22:30 Triage completed. pf1 22:30 Arm band placed on right wrist. pf1 22:30 Patient has correct armband on for positive identification. Bed in low position. Call pf1 light in reach. 23:03 Test, Serum Sent. pf1 23:03 CMP Sent. pf1 23:03 CBC with Diff Sent. pf1 23:03 Lipase Sent. pf1 23:06 No provider procedures requiring assistance completed. pf1 23:50 IV discontinued, intact, bleeding controlled, No redness/swelling at site. Pressure pf1 dressing applied. Administered Medications: 23:05 Drug: Ondansetron IVP 4 mg Route: IVP; Site: right forearm; pf1 23:50 Follow up: Response: No adverse reaction; Marked relief of symptoms; Nausea is decreasedpf1 23:06 Drug: NS 0.9% IV 1000 ml Route: IV; Rate: 1 bolus; Site: right forearm; pf1 23:50 Follow up: Response: No adverse reaction; Marked relief of symptoms; IV Status: pf1 Completed infusion; IV Intake: 1000ml Medication: 23:50 VIS not applicable for this client. pf1 Intake: 23:50 IV: 1000ml; Total: 1000ml. pf1 Outcome: 23:41 Discharge ordered by MD. rt 23:50 Discharged to home ambulatory, with family. pf1 23:50 Condition: improved 23:50 Discharge instructions given to patient, Instructed on discharge instructions, follow up and referral plans. Demonstrated understanding of instructions, follow-up care, medications, Prescriptions given X 1. 23:50 Patient left the ED. pf1 Signatures: Nader Silva MD MD rt Cely Purvis RN RN pf1 Denise Templeton rv1 Corrections: (The following items were deleted from the chart) 22:32 22:07 Chief complaint: Patient states: C/O upper abdominal pain of 8 with nausea, pf1 vomiting x 40 episodes and diarrhea x 12 episodes,onset this AM. pf1 11/08 04:21 00:03 Patient left the ED. pf1 pf1
--- NOTE | 2022-11-07 23:41 | EDPHYS ---
Physician Documentation [facility] Name: Allison Marvin Age: 32 yrs Sex: Female : 1990 Arrival Date: 11/07/2022 Time: 22:04 Bed 10 Private MD: ED Physician Nader Silva HPI: 11/08 02:46 This 32 yrs old Female presents to ER via EMS with complaints of Nausea, rt vomiting, diarrhea. 02:46 Patient presents to the ED with nausea, vomiting, diarrhea starting today. She rt associate abdominal cramping when she is having vomiting. Denies hematemesis, hematochezia. She reports body aches, chills but denies fever. Denies other acute complaints at this time. Symptoms are moderate severity, no other aggravating or alleviating factors.. Historical: - Allergies: 11/07 22:30 No Known Allergies; pf1 - Home Meds: 22:30 None [Active]; pf1 - PMHx: 22:30 None; pf1 - PSHx: 22:30 Cholecystectomy; pf1 - Immunization history:: Adult Immunizations not up to date, Client reports receiving the 2nd dose of the Covid vaccine, Last tetanus immunization: > 10 years ago Flu vaccine is not up to date. - Social history:: Smoking status: unknown. ROS: 11/08 02:46 Cardiovascular: Negative for chest pain, palpitations, and edema, Respiratory: Negative rt for shortness of breath, cough, wheezing, and pleuritic chest pain, MS/Extremity: Negative for injury and deformity, Skin: Negative for injury, rash, and discoloration, Neuro: Negative for headache, weakness, numbness, tingling, and seizure, Psych: Negative for depression, anxiety, suicide ideation, homicidal ideation, and hallucinations. Constitutional: Positive for body aches, chills. Abdomen/GI: Positive for abdominal pain, nausea, vomiting, and diarrhea. Exam: 02:46 Constitutional: This is a well developed, well nourished patient who is awake, alert, rt and in no acute distress. Head/Face: Normocephalic, atraumatic. Chest/axilla: Normal chest wall appearance and motion. Nontender with no deformity. No lesions are appreciated. Cardiovascular: Regular rate and rhythm with a normal S1 and S2. No gallops, murmurs, or rubs. Normal PMI, no JVD. No pulse deficits. Respiratory: Lungs have equal breath sounds bilaterally, clear to auscultation and percussion. No rales, rhonchi or wheezes noted. No increased work of breathing, no retractions or nasal flaring. Abdomen/GI: Soft, non-tender, with normal bowel sounds. No distension or tympany. No guarding or rebound. No evidence of tenderness throughout. Skin: Warm, dry with normal turgor. Normal color with no rashes, no lesions, and no evidence of cellulitis. MS/ Extremity: Pulses equal, no cyanosis. Neurovascular intact. Full, normal range of motion. Neuro: Awake and alert, GCS 15, oriented to person, place, time, and situation. Cranial nerves II-XII grossly intact. Motor strength 5/5 in all extremities. Sensory grossly intact. Cerebellar exam normal. Normal gait. Psych: Awake, alert, with orientation to person, place and time. Behavior, mood, and affect are within normal limits. Vital Signs: 11/07 22:07 BP 138 / 91; Pulse 89; Resp 18; Temp 98.1; Pulse Ox 98% on R/A; Weight 81.65 kg; Height pf1 5 ft. 4 in. ; Pain 8/10; 23:00 BP 128 / 97; Pulse 71; Resp 16; Pulse Ox 100% on R/A; Pain 0/10; pf1 22:07 Body Mass Index 30.90 (81.65 kg, 162.56 cm) pf1 22:07 Pain Scale: Adult pf1 23:00 Pain Scale: Adult pf1 MDM: 22:16 Patient medically screened. rt 11/08 02:46 Differential diagnosis: Gastroenteritis, colitis, GI disturbance. Data reviewed: vital rt signs, nurses notes. I considered the following discharge prescriptions or medication management in the emergency department Medications were administered in the Emergency Department. See MAR. Test considered but Not performed: CT: Benign abdominal examination, stable labs, resolution of symptoms with treatment in the ED, at this time, low suspicion for surgical pathology such as appendicitis, cholecystitis. Do not believe that CT scan is indicated at this time. Counseling: I had a detailed discussion with the patient and/or guardian regarding: the historical points, exam findings, and any diagnostic results supporting the discharge/admit diagnosis, lab results, the need for outpatient follow up. 11/07 22:27 Order name: CBC with Diff; Complete Time: 23:36 rt 11/07 22:27 Order name: CMP; Complete Time: 23:33 rt 11/07 22:27 Order name: Test, Serum; Complete Time: 23:36 rt 11/07 22:27 Order name: Lipase; Complete Time: 23:33 rt Administered Medications: 11/07 23:05 Drug: Ondansetron IVP 4 mg Route: IVP; Site: right forearm; pf1 23:50 Follow up: Response: No adverse reaction; Marked relief of symptoms; Nausea is decreasedpf1 23:06 Drug: NS 0.9% IV 1000 ml Route: IV; Rate: 1 bolus; Site: right forearm; pf1 23:50 Follow up: Response: No adverse reaction; Marked relief of symptoms; IV Status: pf1 Completed infusion; IV Intake: 1000ml Disposition Summary: 11/07/22 23:41 Discharge Ordered Location: Home rt Problem: new rt Symptoms: have improved rt Condition: Stable rt Diagnosis - Gastroenteritis rt Followup: rt - With: Private Physician - When: 2 - 3 days - Reason: Discharge Instructions: - Discharge Summary Sheet rt - Viral Gastroenteritis, Adult rt Forms: - Medication Reconciliation Form rt - Thank You Letter rt - Antibiotic Education rt - Prescription Opioid Use rt Prescriptions: - ondansetron 4 mg Oral Tablet,disintegrating - take 1 tablet by ORAL route every 6 hours; 18 tablet; Refills: 0, Product rt Selection Permitted Signatures: Dispatcher [employer] Nader Larsen MD MD rt Cely Purvis RN RN pf1
[2022-11-08 00:49] VITALS: BP 138/91; TEMP 98.1; O2SAT 98
== END 2022-11-08 00:03 | disposition home or self-care (01) ==
LOC: ER 22:04
DX: K52.9 Noninfective gastroenteritis and colitis, unspecified (principal)
CPT/HCPCS: 96361; 85025; 36415; 84703; 83690; 80053; 96374; 99284; J2405; J7030